=== PATIENT | male | born 1935 | race Caucasian/White ===

== ENCOUNTER → 2016-11-28 | Outpatient (CLI) | payer MEDICARE, OTHER ==
[~2016-11-28] MED LIST: BENA20TA70 PO; ESOM20CA PO; PERCOT PO; PRAV20TA3 PO
== END | disposition home or self-care (01) ==
LOC: XYW 09:56
PROVIDERS: ATTEND Internal Medicine Cardiovascular Disease
DX: I49.9 Cardiac arrhythmia, unspecified (principal)
CPT/HCPCS: 93306

== ENCOUNTER 2017-02-08 09:29 | Emergency (ER) | payer OTHER ==
[~2017-02-08] VITALS: Ht 180.3 cm; Wt 68.0 kg
[2017-02-08 11:04] LABS: Basophils # (auto) 0 uL; Basophils % (auto) 0.4 % (0.0-2.0); Eosinophils # (auto) 0.1 uL; Eosinophils % (auto) 2.1 % (0.0-7.0); Hematocrit 52.7 % (41.0-53.0); Hemoglobin 17.8 g/dL (13.5-17.5); Lymphocytes # (auto) 1.5 uL; Lymphocytes % (auto) 22.4 % (10.0-50.0); Mean Corpuscular Hemoglobin 31.4 pg (28.0-32.0); Mean Corpuscular Hgb Conc. 33.7 g/dL (32.0-36.0); Mean Corpuscular Volume 93.3 fL (80.0-100.0); Mean Platelet Volume 7.8 fL (7.4-10.4); Monocytes # (auto) 0.6 uL; Monocytes % (auto) 8.1 % (0.0-12.0); Neutrophils # (auto) 4.6 uL; Platelet Count (auto) 294 10^3/uL (140-450); Red Cell Distribution Width 13.9 % (11.6-16.0); White Blood Cell 6.9 10^3/uL (4.4-10.8)
[2017-02-08 11:34] LABS: Albumin 3.8 g/dL (3.4-5.0); BUN/Creatinine Ratio 24.6; Bilirubin, Total 0.4 mg/dL (0.2-1.0); Calcium 9.3 mg/dL (8.5-10.1); Total Protein 7.1 g/dL (6.4-8.2)
[2017-02-08 11:46] LABS: Potassium 4.5 mmol/L (3.5-5.1)
[2017-02-08 13:45] VITALS: BP 118/66
== END 2017-02-08 14:22 | disposition home or self-care (01) ==
LOC: ER 09:32
DX: M70.71 Other bursitis of hip, right hip (principal); I10 Essential (primary) hypertension; F17.210 Nicotine dependence, cigarettes, uncomplicated; Z86.73 Personal history of transient ischemic attack (TIA), and cerebral infarction without residual deficits; Z79.899 Other long term (current) drug therapy
CPT/HCPCS: 36415; 73502; 80053; 85025; 85379

== ENCOUNTER → 2017-03-31 | Outpatient (CLI) | payer OTHER ==
[2017-03-31 10:25] LABS: Urine RBC None Seen /hpf (0 - 3)
[2017-03-31 10:41] LABS: Urine Bilirubin Negative (Negative); Urine Blood Negative /uL (Negative); Urine Color Yellow (Yellow); Urine Glucose Normal (Normal); Urine Granular Cast MOD /lpf (0); Urine Ketone Negative (Negative); Urine Mucus FEW (None Seen); Urine Nitrite Negative (Negative); Urine Squamous Epithelial Cell FEW /hpf (<5); Urine Urobilinogen Normal (Negative)
[2017-03-31 10:46] LABS: Basophils # (auto) 0 uL; Basophils % (auto) 0.1 % (0.0-2.0); Eosinophils # (auto) 0 uL; Eosinophils % (auto) 0.2 % (0.0-7.0); Hematocrit 44.1 % (41.0-53.0); Hemoglobin 14.7 g/dL (13.5-17.5); Lymphocytes # (auto) 0.8 uL; Lymphocytes % (auto) 7.4 % (10.0-50.0); Mean Corpuscular Hemoglobin 31.3 pg (28.0-32.0); Mean Corpuscular Hgb Conc. 33.3 g/dL (32.0-36.0); Mean Corpuscular Volume 93.9 fL (80.0-100.0); Mean Platelet Volume 8.5 fL (7.4-10.4); Monocytes # (auto) 1.3 uL; Monocytes % (auto) 11.5 % (0.0-12.0); Neutrophils # (auto) 8.8 uL; Neutrophils % (auto) 80.8 % (37.0-80.0); Platelet Count (auto) 300 10^3/uL (140-450); Red Cell Distribution Width 13.5 % (11.6-16.0); White Blood Cell 10.9 10^3/uL (4.4-10.8)
[2017-03-31 11:18] LABS: Albumin 2.7 g/dL (3.4-5.0); BUN/Creatinine Ratio 27.6; Bilirubin, Total 0.5 mg/dL (0.2-1.0); Calcium 9.1 mg/dL (8.5-10.1); Potassium 3.7 mmol/L (3.5-5.1); Total Protein 7.2 g/dL (6.4-8.2)
== END | disposition home or self-care (01) ==
LOC: LAB 09:35
PROVIDERS: ATTEND Internal Medicine
DX: I50.40 Unspecified combined systolic (congestive) and diastolic (congestive) heart failure (principal); E78.2 Mixed hyperlipidemia; I10 Essential (primary) hypertension
CPT/HCPCS: 36415; 80053; 80061; 80307; 81001; 84153; 84443; 85025

== ENCOUNTER → 2017-04-29 | Outpatient (CLI) | payer OTHER | END | disposition home or self-care (01) | LOC: XYW 09:31 | PROVIDERS: ATTEND Internal Medicine Cardiovascular Disease | DX: Z01.818 Encounter for other preprocedural examination (principal); I50.42 Chronic combined systolic (congestive) and diastolic (congestive) heart failure; I08.1 Rheumatic disorders of both mitral and tricuspid valves; I27.2 Other secondary pulmonary hypertension | CPT/HCPCS: 93306 ==

== ENCOUNTER → 2017-06-10 | Outpatient (CLI) | payer OTHER ==
[2017-06-10 10:13] LABS: BUN/Creatinine Ratio 21.1; Calcium 9.1 mg/dL (8.5-10.1); Potassium 4.1 mmol/L (3.5-5.1)
== END | disposition home or self-care (01) ==
LOC: LAB 09:42
PROVIDERS: ATTEND Internal Medicine Cardiovascular Disease
DX: I50.42 Chronic combined systolic (congestive) and diastolic (congestive) heart failure (principal)
CPT/HCPCS: 36415; 80048

== ENCOUNTER → 2017-08-06 | Outpatient (CLI) | payer OTHER ==
[2017-08-06 11:08] LABS: BUN/Creatinine Ratio 20.5; Calcium 8.8 mg/dL (8.5-10.1); Potassium 4.3 mmol/L (3.5-5.1)
== END | disposition home or self-care (01) ==
LOC: LAB 10:04
PROVIDERS: ATTEND Internal Medicine Cardiovascular Disease
DX: I50.42 Chronic combined systolic (congestive) and diastolic (congestive) heart failure (principal)
CPT/HCPCS: 36415; 80048

== ENCOUNTER → 2017-10-29 | Outpatient (CLI) | payer OTHER ==
[~2017-10-29] MED LIST changes: +CAR125T PO; +DOXY-216 PO; +ENAL2.5T PO; +RIVA20TA PO
== END | disposition home or self-care (01) ==
LOC: XYW 09:13
PROVIDERS: ATTEND Internal Medicine Cardiovascular Disease
DX: I50.42 Chronic combined systolic (congestive) and diastolic (congestive) heart failure (principal)

== ENCOUNTER → 2017-10-29 | Outpatient (CLI) | payer OTHER ==
[~2017-10-29] MED LIST changes: -CAR125T PO; -DOXY-216 PO; -ENAL2.5T PO; -RIVA20TA PO
[2017-10-29 09:40] LABS: BUN/Creatinine Ratio 23.1; Potassium 4.1 mmol/L (3.5-5.1)
== END | disposition home or self-care (01) ==
LOC: LAB 08:47
PROVIDERS: ATTEND Internal Medicine Cardiovascular Disease
DX: I50.42 Chronic combined systolic (congestive) and diastolic (congestive) heart failure (principal); I42.9 Cardiomyopathy, unspecified
CPT/HCPCS: 36415; 80048; 93306

== ENCOUNTER 2017-12-11 10:32 | Emergency (ER) | payer OTHER ==
[~2017-12-11] VITALS: Ht 177.8 cm; Wt 52.2 kg
[2017-12-11 11:30] LABS: Basophils # (auto) 0 uL; Basophils % (auto) 0.2 % (0.0-2.0); Eosinophils # (auto) 0 uL; Hematocrit 41.3 % (41.0-53.0); Hemoglobin 13.4 g/dL (13.5-17.5); Lymphocytes # (auto) 0.5 uL; Lymphocytes % (auto) 5.2 % (10.0-50.0); Mean Corpuscular Hemoglobin 30.2 pg (28.0-32.0); Mean Corpuscular Hgb Conc. 32.5 g/dL (32.0-36.0); Mean Corpuscular Volume 92.7 fL (80.0-100.0); Monocytes # (auto) 0.4 uL; Monocytes % (auto) 4.2 % (0.0-12.0); Neutrophils # (auto) 8.8 uL; Neutrophils % (auto) 90.4 % (37.0-80.0); Platelet Count (auto) 178 10^3/uL (140-450); Red Blood Cells 4.45 10^6/uL (4.5-5.90); White Blood Cell 9.7 10^3/uL (4.4-10.8)
[2017-12-11] MEDS ORDERED: ALBUTEROL SULF 2.5 MG/0.5ML(0.5%) NEB SOLN NEB ONE (11:30)
[2017-12-11] MEDS ORDERED: IPRATROPIUM BROM 0.5 MG/2.5ML INH SOL NEB ONE (11:30)
[2017-12-11 11:53] LABS: Alanine Aminotransferase 46 U/L (16-61); Albumin 2.8 g/dL (3.4-5.0); Alkaline Phosphatase 204 U/L (45-117); Anion Gap 7 (5-15); Aspartate Aminotransferase 59 U/L (15-37); Bilirubin, Total 0.4 mg/dL (0.2-1.0); Blood Urea Nitrogen 36 mg/dL (7-18); Calcium 8.5 mg/dL (8.5-10.1); Carbon Dioxide 27 mmol/L (21-32); Chloride 107 mmol/L (98-107); GFR African American 89 mL/min; GFR Non-African American 73 mL/min; Glucose 125 mg/dL (74-106); Magnesium 2.3 mg/dL (1.6-2.6); Potassium 3.7 mmol/L (3.5-5.1); Sodium 141 mmol/L (136-145); Total Protein 6.3 g/dL (6.4-8.2)
[2017-12-11] MEDS ORDERED: cefTRIAXone W LIDOCAINE 1 GM IM IM ONE (14:00)
[2017-12-11] MEDS ORDERED: cefTRIAXone SOD 1,000 MG VL ONE (14:24)
[2017-12-11 14:41] VITALS: BP 146/63
== END 2017-12-11 14:51 | disposition home or self-care (01) ==
LOC: ER 10:32
DX: J44.9 Chronic obstructive pulmonary disease, unspecified (principal); I10 Essential (primary) hypertension; Z87.891 Personal history of nicotine dependence
CPT/HCPCS: 36415; 71046; 80053; 83735; 84484; 85025; 93005; 94640; 99285; J0696

== ENCOUNTER → 2018-01-05 | Outpatient (CLI) | payer OTHER ==
[~2018-01-05] MED LIST changes: +CAR125T PO; +DOXY-216 PO; +ENAL2.5T PO; +RIVA20TA PO
[2018-01-05 10:32] LABS: Basophils # (auto) 0 uL; Basophils % (auto) 0.6 % (0.0-2.0); Eosinophils # (auto) 0.1 uL; Eosinophils % (auto) 3.3 % (0.0-7.0); Hemoglobin 14.4 g/dL (13.5-17.5); Lymphocytes # (auto) 1.4 uL; Lymphocytes % (auto) 31.6 % (10.0-50.0); Mean Corpuscular Hemoglobin 30.6 pg (28.0-32.0); Mean Corpuscular Hgb Conc. 33.4 g/dL (32.0-36.0); Mean Corpuscular Volume 91.5 fL (80.0-100.0); Monocytes # (auto) 0.5 uL; Monocytes % (auto) 11.6 % (0.0-12.0); Neutrophils # (auto) 2.4 uL; Neutrophils % (auto) 52.9 % (37.0-80.0); Platelet Count (auto) 206 10^3/uL (140-450); Red Cell Distribution Width 15.3 % (11.8-14.3); White Blood Cell 4.5 10^3/uL (4.4-10.8)
[2018-01-05 10:51] LABS: INR 0.96 (0.9-1.15); Partial Thromboplastin Time 29.1 sec (22.64-33.71); Prothrombin Time 10.5 sec (9.37-12.3)
== END | disposition home or self-care (01) ==
LOC: LAB 10:16
PROVIDERS: ATTEND Surgery
DX: J90 Pleural effusion, not elsewhere classified (principal); E78.2 Mixed hyperlipidemia; I12.9 Hypertensive chronic kidney disease with stage 1 through stage 4 chronic kidney disease, or unspecified chronic kidney disease; N18.9 Chronic kidney disease, unspecified
CPT/HCPCS: 36415; 84443; 85025; 85610; 85730

== ENCOUNTER 2018-01-07 16:02 | Inpatient (IN) | payer OTHER ==
[~2018-01-07] VITALS: Ht 180.3 cm; Wt 56.2 kg
[~2018-01-07 16:02] MED LIST changes: -BACITRACIN TOP OINT 1 UD PKG TOP ONE; -CAR125T PO; -DOXY-216 PO; -ENAL2.5T PO; -LIDOCAINE 2%HCL (LOCAL ANESTH.) INJ 20ML MDV ONE; -MIDAZOLAM HCL 1MG/1ML-2 ML VIAL ONE; -RIVA20TA PO; -fentaNYL CITRATE 100 MCG/2 ML VL ONE
[2018-01-07] MEDS ORDERED: LORazepam 2MG/ML-1ML VIAL IV ONE (17:15)
[2018-01-07] MEDS ORDERED: NALBUPHINE HCL 10 MG/1ml INJECTION IV ONE (17:15)
[2018-01-07] MEDS ORDERED: SODIUM CHLORIDE 0.9% 1,000 ML IV ONE (18:30)
[2018-01-07] MEDS ORDERED: cefTRIAXone 1GM/10ml IVPUSH 10 ML IV ONE (18:30)
[2018-01-07] MEDS ORDERED: MORPHINE SULFATE 4 MG/ML SYR/VIAL IV PRN (19:00)
[2018-01-07] MEDS ORDERED: PROMETHAZINE HCL 25 MG/ML 1ML IV PRN (19:00)
[2018-01-07] MEDS ORDERED: LACTULOSE 20Gm/30ML SOLN PO PRN (19:00)
[2018-01-07] MEDS ORDERED: LORazepam 0.5 MG TAB PO PRN (19:00)
[2018-01-07] MEDS ORDERED: NITROGLYCERIN 0.4 MG SL TAB SL PRN (19:00)
[2018-01-07] MEDS ORDERED: TEMAZEPAM 15 MG CAP PO PRN (19:00)
[2018-01-07] MEDS ORDERED: ALBUTEROL SULF 2.5 MG/0.5ML(0.5%) NEB SOLN NEB PRN (19:00)
[2018-01-07] MEDS ORDERED: HYDROcodone-ACET 5/325MG TAB PO PRN (19:00)
[2018-01-07] MEDS ORDERED: ACETAMINOPHEN 500 MG TAB PO PRN (19:00)
[2018-01-07 19:30] LABS: Basophils # (auto) 0 uL; Basophils % (auto) 0.3 % (0.0-2.0); Eosinophils # (auto) 0.1 uL; Eosinophils % (auto) 1.9 % (0.0-7.0); Hematocrit 39.5 % (41.0-53.0); Lymphocytes % (auto) 19.7 % (10.0-50.0); Mean Corpuscular Hemoglobin 30.5 pg (28.0-32.0); Mean Corpuscular Hgb Conc. 32.8 g/dL (32.0-36.0); Mean Corpuscular Volume 92.8 fL (80.0-100.0); Monocytes # (auto) 0.5 uL; Monocytes % (auto) 10.2 % (0.0-12.0); Neutrophils # (auto) 3.4 uL; Neutrophils % (auto) 67.9 % (37.0-80.0); Nucleated Red Blood Cells % 0.1 %; Platelet Count (auto) 183 10^3/uL (140-450); Red Blood Cells 4.26 10^6/uL (4.5-5.90); Red Cell Distribution Width 14.6 % (11.8-14.3); White Blood Cell 5.1 10^3/uL (4.4-10.8)
[2018-01-07 19:35] LABS: Alanine Aminotransferase 22 U/L (16-61); Albumin 3.2 g/dL (3.4-5.0); Alkaline Phosphatase 116 U/L (45-117); Anion Gap 7 (5-15); Aspartate Aminotransferase 17 U/L (15-37); BUN/Creatinine Ratio 21.5; Bilirubin, Total 0.5 mg/dL (0.2-1.0); Blood Urea Nitrogen 23 mg/dL (7-18); Calcium 8.3 mg/dL (8.5-10.1); Carbon Dioxide 25 mmol/L (21-32); Chloride 115 mmol/L (98-107); GFR African American 85 mL/min; GFR Non-African American 70 mL/min; Glucose 90 mg/dL (74-106); Magnesium 2.4 mg/dL (1.6-2.6); Potassium 3.7 mmol/L (3.5-5.1); Sodium 147 mmol/L (136-145); Total Protein 5.9 g/dL (6.4-8.2)
[2018-01-07] MEDS: MORPHINE SULFATE 4 MG/ML SYR/VIAL IV PRN (21:06)
[2018-01-07] MEDS: SODIUM CHLORIDE 0.9% 1,000 ML IV SCH (21:21)
[2018-01-08] MEDS: IPRATROPIUM BROM 0.5 MG/2.5ML INH SOL NEB SCH ×4 (00:30→18:39)
[2018-01-08] MEDS: ALBUTEROL SULF 2.5 MG/0.5ML(0.5%) NEB SOLN NEB SCH ×4 (00:30→18:39)
[2018-01-08 01:28] LABS: Hematocrit 41.5 % (41.0-53.0); Hemoglobin 13.4 g/dL (13.5-17.5)
[2018-01-08 03:03] VITALS: BP 174/79
[2018-01-08] MEDS: MORPHINE SULFATE 4 MG/ML SYR/VIAL IV PRN ×3 (03:41→11:46)
[2018-01-08] MEDS: SODIUM CHLORIDE 0.9% 1,000 ML IV SCH ×3 (04:20→19:55)
[2018-01-08 06:08] LABS: Hematocrit 38.4 % (41.0-53.0); Hemoglobin 12.8 g/dL (13.5-17.5)
[2018-01-08 06:09] LABS: Basophils # (auto) 0 uL; Basophils % (auto) 0.2 % (0.0-2.0); Eosinophils # (auto) 0 uL; Eosinophils % (auto) 0.8 % (0.0-7.0); Hematocrit 38.5 % (41.0-53.0); Hemoglobin 12.6 g/dL (13.5-17.5); Lymphocytes # (auto) 1.1 uL; Mean Corpuscular Hemoglobin 30.1 pg (28.0-32.0); Mean Corpuscular Hgb Conc. 32.8 g/dL (32.0-36.0); Mean Corpuscular Volume 91.8 fL (80.0-100.0); Monocytes # (auto) 0.7 uL; Monocytes % (auto) 12.4 % (0.0-12.0); Neutrophils # (auto) 3.9 uL; Neutrophils % (auto) 67.6 % (37.0-80.0); Nucleated Red Blood Cells % 0.1 %; Platelet Count (auto) 202 10^3/uL (140-450); Red Blood Cells 4.19 10^6/uL (4.5-5.90); Red Cell Distribution Width 14.7 % (11.8-14.3); White Blood Cell 5.8 10^3/uL (4.4-10.8)
[2018-01-08] MEDS: PANTOPRAZOLE 40 MG TAB PO SCH (09:20)
[2018-01-08] MEDS: cefTRIAXone 1GM/10ml IVPUSH 10 ML IV SCH (09:20)
[2018-01-09] MEDS: IPRATROPIUM BROM 0.5 MG/2.5ML INH SOL NEB SCH ×4 (00:44→19:40)
[2018-01-09] MEDS: ALBUTEROL SULF 2.5 MG/0.5ML(0.5%) NEB SOLN NEB SCH ×4 (00:44→19:40)
[2018-01-09] MEDS: SODIUM CHLORIDE 0.9% 1,000 ML IV SCH ×3 (02:57→19:30)
[2018-01-09 05:39] LABS: Basophils # (auto) 0 uL; Basophils % (auto) 0.3 % (0.0-2.0); Eosinophils # (auto) 0.1 uL; Eosinophils % (auto) 1.8 % (0.0-7.0); Hematocrit 42.8 % (41.0-53.0); Hemoglobin 14.5 g/dL (13.5-17.5); Lymphocytes # (auto) 1.1 uL; Lymphocytes % (auto) 18.9 % (10.0-50.0); Mean Corpuscular Hemoglobin 30.9 pg (28.0-32.0); Mean Corpuscular Hgb Conc. 33.9 g/dL (32.0-36.0); Mean Corpuscular Volume 91.4 fL (80.0-100.0); Monocytes # (auto) 0.9 uL; Monocytes % (auto) 15.6 % (0.0-12.0); Neutrophils # (auto) 3.8 uL; Neutrophils % (auto) 63.4 % (37.0-80.0); Nucleated Red Blood Cells % 0.2 %; Platelet Count (auto) 202 10^3/uL (140-450); Red Blood Cells 4.68 10^6/uL (4.5-5.90); Red Cell Distribution Width 14.4 % (11.8-14.3)
[2018-01-09 05:49] LABS: Calcium 8.5 mg/dL (8.5-10.1); Potassium 4.1 mmol/L (3.5-5.1)
[2018-01-09] MEDS: cefTRIAXone 1GM/10ml IVPUSH 10 ML IV SCH (09:21)
[2018-01-09] MEDS: PANTOPRAZOLE 40 MG TAB PO SCH (09:22)
[2018-01-09 16:00] VITALS: BP 146/104
[2018-01-09] MEDS ORDERED: cloNIDine HCL 0.1 MG TAB PO PRN (17:00)
[2018-01-09] MEDS ORDERED: CAR125T PO (17:12)
[2018-01-09] MEDS ORDERED: ENAL2.5T PO (17:12)
[2018-01-09] MEDS: ENALAPRIL MALEATE 2.5 MG TAB PO SCH (17:14)
[2018-01-09] MEDS: CARVEDILOL 12.5 MG TAB PO SCH ×2 (17:14→21:24)
[2018-01-09 17:59] VITALS: BP 147/79
[2018-01-09 20:00] VITALS: BP 129/74
[2018-01-10] VITALS: BP 122/73
[2018-01-10] MEDS: ALBUTEROL SULF 2.5 MG/0.5ML(0.5%) NEB SOLN NEB SCH ×3 (00:36→12:00)
[2018-01-10] MEDS: IPRATROPIUM BROM 0.5 MG/2.5ML INH SOL NEB SCH ×3 (00:36→12:00)
[2018-01-10] MEDS: SODIUM CHLORIDE 0.9% 1,000 ML IV SCH ×2 (02:57→11:47)
[2018-01-10 05:15] LABS: Basophils # (auto) 0 uL; Basophils % (auto) 0.3 % (0.0-2.0); Eosinophils # (auto) 0.1 uL; Eosinophils % (auto) 3.1 % (0.0-7.0); Hematocrit 37.5 % (41.0-53.0); Hemoglobin 12.4 g/dL (13.5-17.5); Lymphocytes % (auto) 21.1 % (10.0-50.0); Mean Corpuscular Hemoglobin 30.3 pg (28.0-32.0); Mean Corpuscular Hgb Conc. 33.1 g/dL (32.0-36.0); Mean Corpuscular Volume 91.7 fL (80.0-100.0); Monocytes # (auto) 0.7 uL; Monocytes % (auto) 14.5 % (0.0-12.0); Neutrophils # (auto) 2.8 uL; Nucleated Red Blood Cells % 0.2 %; Platelet Count (auto) 177 10^3/uL (140-450); Red Cell Distribution Width 14.5 % (11.8-14.3); White Blood Cell 4.6 10^3/uL (4.4-10.8)
[2018-01-10 05:33] LABS: BUN/Creatinine Ratio 14.3; Calcium 7.9 mg/dL (8.5-10.1); Potassium 3.8 mmol/L (3.5-5.1)
[2018-01-10 08:00] VITALS: BP 126/81
[2018-01-10] MEDS: PANTOPRAZOLE 40 MG TAB PO SCH (11:46)
[2018-01-10] MEDS: ENALAPRIL MALEATE 2.5 MG TAB PO SCH (11:46)
[2018-01-10] MEDS: CARVEDILOL 12.5 MG TAB PO SCH (11:47)
[2018-01-10] MEDS: cefTRIAXone 1GM/10ml IVPUSH 10 ML IV SCH (11:47)
[2018-01-10 11:52] VITALS: BP 151/66
[2018-01-10 12:29] VITALS: BP 151/66
[2018-01-10] MEDS ORDERED: CARVEDILOL 12.5 MG TAB PO SCH (22:00)
== END 2018-01-10 14:45 | disposition left against medical advice (07) | DRG 199 ==
LOC: ER 16:09 → TELE 16:10 → DOU IN ICU 01-09 14:55
PROVIDERS: ADMIT Internal Medicine; ATTEND Internal Medicine
PROC: 0W9930Z Drainage of Right Pleural Cavity with Drainage Device, Percutaneous Approach (ICD-10-PCS; principal; 2018-01-07)
DX: J95.811 Postprocedural pneumothorax (principal); J18.9 Pneumonia, unspecified organism; J44.0 Chronic obstructive pulmonary disease with (acute) lower respiratory infection; I48.91 Unspecified atrial fibrillation; J95.831 Postprocedural hemorrhage of a respiratory system organ or structure following other procedure; Y83.8 Other surgical procedures as the cause of abnormal reaction of the patient, or of later complication, without mention of misadventure at the time of the procedure; E78.5 Hyperlipidemia, unspecified; I70.0 Atherosclerosis of aorta; E78.00 Pure hypercholesterolemia, unspecified; I10 Essential (primary) hypertension; Z82.49 Family history of ischemic heart disease and other diseases of the circulatory system; Y92.89 Other specified places as the place of occurrence of the external cause
CPT/HCPCS: 32551; 36415; 36600; 71045; 71046; 80048; 80053; 82805; 83735; 84443; 84484; 85014; 85018; 85025; 87040; 93005; 94640; 94761; 96361; 96374; 96375

== ENCOUNTER → 2018-01-07 | Outpatient (CLI) | payer OTHER ==
[~2018-01-07] MED LIST changes: +BACITRACIN TOP OINT 1 UD PKG TOP ONE; +LIDOCAINE 2%HCL (LOCAL ANESTH.) INJ 20ML MDV ONE; +MIDAZOLAM HCL 1MG/1ML-2 ML VIAL ONE; +fentaNYL CITRATE 100 MCG/2 ML VL ONE
== END | disposition home or self-care (01) ==
LOC: CT 08:45
PROVIDERS: ATTEND Surgery
DX: R91.8 Other nonspecific abnormal finding of lung field (principal); J43.9 Emphysema, unspecified; J95.811 Postprocedural pneumothorax; Y84.8 Other medical procedures as the cause of abnormal reaction of the patient, or of later complication, without mention of misadventure at the time of the procedure; Y92.238 Other place in hospital as the place of occurrence of the external cause
CPT/HCPCS: 32405; 32551; 71045; 77012; J2250; J3010; 10022

== ENCOUNTER 2018-01-11 10:04 | Observation (INO) | payer OTHER ==
[~2018-01-11] VITALS: Ht 177.8 cm; Wt 52.2 kg
[~2018-01-11 10:04] MED LIST changes: +CAR125T PO; +ENAL2.5T PO
[2018-01-11 11:27] LABS: Basophils # (auto) 0 uL; Basophils % (auto) 0.5 % (0.0-2.0); Eosinophils # (auto) 0.1 uL; Eosinophils % (auto) 2.4 % (0.0-7.0); Hematocrit 38.9 % (41.0-53.0); Hemoglobin 12.8 g/dL (13.5-17.5); Lymphocytes % (auto) 18.8 % (10.0-50.0); Mean Corpuscular Hgb Conc. 32.8 g/dL (32.0-36.0); Mean Corpuscular Volume 91.6 fL (80.0-100.0); Monocytes # (auto) 0.5 uL; Monocytes % (auto) 9.3 % (0.0-12.0); Neutrophils # (auto) 3.7 uL; Platelet Count (auto) 232 10^3/uL (140-450); Red Blood Cells 4.25 10^6/uL (4.5-5.90); Red Cell Distribution Width 14.4 % (11.8-14.3); White Blood Cell 5.4 10^3/uL (4.4-10.8)
[2018-01-11 11:52] LABS: Albumin 3.2 g/dL (3.4-5.0); BUN/Creatinine Ratio 20.5; Bilirubin, Total 0.6 mg/dL (0.2-1.0); Calcium 8.4 mg/dL (8.5-10.1); Total Protein 6.8 g/dL (6.4-8.2)
[2018-01-11] MEDS ORDERED: IOHEXOL 350 MG/ML 100ML IJ ONE (16:18)
[2018-01-11 16:59] VITALS: BP 156/73
[2018-01-11] MEDS ORDERED: cefTRIAXone 1GM/10ml IVPUSH 10 ML IV ONE (18:00)
[2018-01-11 18:10] LABS: Urine Bacteria NONE SEEN /hpf (None Seen); Urine Blood Negative /uL (Negative); Urine Specific Gravity 1.018 (1.001-1.035); Urine WBC 1 /hpf (0 - 3)
[2018-01-11 18:24] LABS: Magnesium 2.1 mg/dL (1.6-2.6)
== END 2018-01-11 19:31 | disposition left against medical advice (07) | DRG 204 ==
LOC: ER 10:04 → OVERFLOW 17:49 → ER 19:31
PROVIDERS: ADMIT Family Medicine; ATTEND Family Medicine
DX: R04.2 Hemoptysis (principal); J18.1 Lobar pneumonia, unspecified organism; J44.9 Chronic obstructive pulmonary disease, unspecified; I10 Essential (primary) hypertension
CPT/HCPCS: 36415; 71046; 71275; 80053; 81001; 83735; 84484; 85025; 93005; 96374; 99285; G0378; Q9967

== ENCOUNTER 2018-01-21 10:50 | Inpatient (IN) | payer OTHER ==
[~2018-01-21] VITALS: Ht 180.3 cm; Wt 52.2 kg
[2018-01-21 11:59] LABS: Basophils # (auto) 0 uL; Basophils % (auto) 0.2 % (0.0-2.0); Eosinophils # (auto) 0.1 uL; Eosinophils % (auto) 0.9 % (0.0-7.0); Hematocrit 35.5 % (41.0-53.0); Hemoglobin 11.4 g/dL (13.5-17.5); Lymphocytes # (auto) 0.9 uL; Lymphocytes % (auto) 13.6 % (10.0-50.0); Mean Corpuscular Hemoglobin 29.6 pg (28.0-32.0); Mean Corpuscular Hgb Conc. 32.1 g/dL (32.0-36.0); Mean Corpuscular Volume 92.4 fL (80.0-100.0); Monocytes # (auto) 0.5 uL; Monocytes % (auto) 8.1 % (0.0-12.0); Neutrophils # (auto) 5.1 uL; Neutrophils % (auto) 77.2 % (37.0-80.0); Nucleated Red Blood Cells % 0.1 %; Platelet Count (auto) 278 10^3/uL (140-450); Red Blood Cells 3.85 10^6/uL (4.5-5.90); White Blood Cell 6.6 10^3/uL (4.4-10.8)
[2018-01-21 12:25] LABS: INR 1.13 (0.9-1.15); Partial Thromboplastin Time 35.5 sec (22.64-33.71); Prothrombin Time 12.3 sec (9.37-12.3)
[2018-01-21 13:09] LABS: Alanine Aminotransferase 31 U/L (16-61); Albumin 2.8 g/dL (3.4-5.0); Alkaline Phosphatase 305 U/L (45-117); Anion Gap 10 (5-15); Aspartate Aminotransferase 38 U/L (15-37); BUN/Creatinine Ratio 20.3; Bilirubin, Total 0.5 mg/dL (0.2-1.0); Blood Urea Nitrogen 24 mg/dL (7-18); Calcium 8.5 mg/dL (8.5-10.1); Carbon Dioxide 22 mmol/L (21-32); Chloride 110 mmol/L (98-107); GFR African American 76 mL/min; GFR Non-African American 63 mL/min; Glucose 152 mg/dL (74-106); Magnesium 2.4 mg/dL (1.6-2.6); Potassium 3.8 mmol/L (3.5-5.1); Sodium 142 mmol/L (136-145); Total Protein 6.1 g/dL (6.4-8.2)
[2018-01-21] MEDS ORDERED: LACTULOSE 20Gm/30ML SOLN PO PRN (13:30)
[2018-01-21] MEDS ORDERED: ACETAMINOPHEN 500 MG TAB PO PRN (13:30)
[2018-01-21] MEDS ORDERED: PROMETHAZINE HCL 25 MG/ML 1ML IV PRN (13:30)
[2018-01-21] MEDS ORDERED: MORPHINE SULFATE 4 MG/ML SYR/VIAL IV PRN ×2 (13:30)
[2018-01-21] MEDS ORDERED: ALBUTEROL SULF 2.5 MG/0.5ML(0.5%) NEB SOLN NEB PRN (13:30)
[2018-01-21] MEDS ORDERED: TEMAZEPAM 15 MG CAP PO PRN (13:30)
[2018-01-21] MEDS ORDERED: NITROGLYCERIN 0.4 MG SL TAB SL PRN (13:30)
[2018-01-21] MEDS ORDERED: LORazepam 0.5 MG TAB PO PRN (13:30)
[2018-01-21] MEDS ORDERED: OSELTAMIVIR 75 MG CAP PO ONE (13:30)
[2018-01-21] MEDS ORDERED: HYDROcodone-ACET 5/325MG TAB PO PRN (13:30)
[2018-01-21] MEDS: SODIUM CHLOR 0.9% PF (SALINE LOCK) 10ML VIAL IV SCH ×2 (13:58→22:11)
[2018-01-21] MEDS ORDERED: OXYCODONE W/ ACETAMINOPHEN 5/325MG TABLET PO SCH (14:00)
[2018-01-21] MEDS: methylPREDNISolone SOD SUCC 40 MG/ML VL IV SCH ×2 (14:17→22:09)
[2018-01-21 14:59] VITALS: BP 106/45
[2018-01-21 17:42] LABS: Urine Bacteria FEW /hpf (None Seen); Urine Blood Negative /uL (Negative); Urine Hyaline Cast FEW /lpf (0 - 2); Urine Mucus FEW (None Seen); Urine Specific Gravity 1.024 (1.001-1.035); Urine WBC 4 /hpf (0 - 3)
[2018-01-21] MEDS ORDERED: methylPREDNISolone SOD SUCC 40 MG/ML VL IV SCH (18:00)
[2018-01-21] MEDS: ALBUTEROL SULF 2.5 MG/0.5ML(0.5%) NEB SOLN NEB SCH (18:22)
[2018-01-21] MEDS: IPRATROPIUM BROM 0.5 MG/2.5ML INH SOL NEB SCH (18:22)
[2018-01-21 19:59] LABS: Hematocrit 36.5 % (41.0-53.0)
[2018-01-21] MEDS ORDERED: LABETALOL HCL 5 MG/ML ML 20ML VIAL IV ONE (20:30)
[2018-01-21] MEDS ORDERED: OSELTAMIVIR 75 MG CAP PO SCH (22:00)
[2018-01-21] MEDS ORDERED: PRAVASTATIN SODIUM 20 MG TAB PO SCH (22:00)
[2018-01-21] MEDS ORDERED: OXYCODONE W/ ACETAMINOPHEN 5/325MG TABLET PO PRN (22:00)
[2018-01-21] MEDS ORDERED: methylPREDNISolone SOD SUCC 125 MG/2 ML VL IV ONE (22:00)
[2018-01-21] MEDS: CARVEDILOL 12.5 MG TAB PO SCH (22:09)
[2018-01-22] MEDS: IPRATROPIUM BROM 0.5 MG/2.5ML INH SOL NEB SCH ×3 (00:25→13:12)
[2018-01-22] MEDS: ALBUTEROL SULF 2.5 MG/0.5ML(0.5%) NEB SOLN NEB SCH ×3 (00:25→13:12)
[2018-01-22 01:02] LABS: Hematocrit 33.4 % (41.0-53.0); Hemoglobin 10.9 g/dL (13.5-17.5)
[2018-01-22 05:00] VITALS: BP 125/74
[2018-01-22] MEDS: methylPREDNISolone SOD SUCC 40 MG/ML VL IV SCH ×2 (06:14→12:58)
[2018-01-22] MEDS: SODIUM CHLOR 0.9% PF (SALINE LOCK) 10ML VIAL IV SCH ×2 (06:16→12:58)
[2018-01-22 07:16] LABS: Basophils # (auto) 0 uL; Basophils % (auto) 0.1 % (0.0-2.0); Eosinophils # (auto) 0 uL; Hematocrit 32.9 % (41.0-53.0); Hemoglobin 10.9 g/dL (13.5-17.5); Lymphocytes # (auto) 0.5 uL; Lymphocytes % (auto) 7.4 % (10.0-50.0); Mean Corpuscular Hemoglobin 30.2 pg (28.0-32.0); Mean Corpuscular Hgb Conc. 33.1 g/dL (32.0-36.0); Mean Corpuscular Volume 91.5 fL (80.0-100.0); Monocytes # (auto) 0.3 uL; Monocytes % (auto) 4.3 % (0.0-12.0); Neutrophils # (auto) 5.6 uL; Neutrophils % (auto) 88.2 % (37.0-80.0); Nucleated Red Blood Cells % 0.1 %; Platelet Count (auto) 266 10^3/uL (140-450); Red Cell Distribution Width 14.4 % (11.8-14.3); White Blood Cell 6.3 10^3/uL (4.4-10.8)
[2018-01-22 07:36] LABS: Albumin 2.7 g/dL (3.4-5.0); BUN/Creatinine Ratio 23.9; Bilirubin, Total 0.3 mg/dL (0.2-1.0); Calcium 8.1 mg/dL (8.5-10.1); Potassium 4.1 mmol/L (3.5-5.1)
[2018-01-22 09:00] VITALS: BP 155/82
[2018-01-22] MEDS ORDERED: cefTRIAXone 1GM/10ml IVPUSH 10 ML IV SCH (09:00)
[2018-01-22] MEDS ORDERED: ENALAPRIL MALEATE 2.5 MG TAB PO SCH (10:00)
[2018-01-22] MEDS ORDERED: PANTOPRAZOLE 40 MG TAB PO SCH (10:00)
[2018-01-22] MEDS ORDERED: AZITHROMYCIN 500MG/ 250ML 250 ML IV SCH (10:00)
[2018-01-22] MEDS: CARVEDILOL 12.5 MG TAB PO SCH (10:10)
[2018-01-22 12:34] VITALS: BP 129/78
[2018-01-22] MEDS ORDERED: DOXY-216 PO (13:39)
[2018-01-22 15:02] VITALS: BP 129/78
[2018-01-22 15:24] VITALS: BP 129/78
== END 2018-01-22 15:40 | disposition home or self-care (01) | DRG 291 ==
LOC: ER 10:50 → TELE 10:51 → TELE-WESTW 22:30
PROVIDERS: ADMIT Internal Medicine; ATTEND Internal Medicine
DX: I11.0 Hypertensive heart disease with heart failure (principal); J96.00 Acute respiratory failure, unspecified whether with hypoxia or hypercapnia; J44.1 Chronic obstructive pulmonary disease with (acute) exacerbation; R04.2 Hemoptysis; I50.43 Acute on chronic combined systolic (congestive) and diastolic (congestive) heart failure; I48.91 Unspecified atrial fibrillation; D63.8 Anemia in other chronic diseases classified elsewhere; E78.5 Hyperlipidemia, unspecified; Z82.49 Family history of ischemic heart disease and other diseases of the circulatory system; D02.21 Carcinoma in situ of right bronchus and lung; Z79.899 Other long term (current) drug therapy; K59.00 Constipation, unspecified; F41.9 Anxiety disorder, unspecified; G47.00 Insomnia, unspecified
CPT/HCPCS: 36415; 71045; 71046; 80053; 81001; 82550; 83735; 83880; 84484; 85014; 85018; 85025; 85045; 85379; 85610; 85730; 87804; 93005; 94640; 94761; 96374; 96375

== ENCOUNTER 2018-01-24 10:58 | Inpatient (IN) | payer OTHER ==
[~2018-01-24] VITALS: Ht 177.8 cm; Wt 56.7 kg
[~2018-01-24 10:58] MED LIST changes: +DOXY-216 PO
[2018-01-24 11:28] LABS: Basophils # (auto) 0 uL; Basophils % (auto) 0.1 % (0.0-2.0); Eosinophils # (auto) 0.1 uL; Eosinophils % (auto) 0.8 % (0.0-7.0); Hematocrit 36.9 % (41.0-53.0); Hemoglobin 11.9 g/dL (13.5-17.5); Lymphocytes # (auto) 0.8 uL; Lymphocytes % (auto) 8.8 % (10.0-50.0); Mean Corpuscular Hemoglobin 29.6 pg (28.0-32.0); Mean Corpuscular Hgb Conc. 32.3 g/dL (32.0-36.0); Mean Corpuscular Volume 91.7 fL (80.0-100.0); Monocytes # (auto) 0.7 uL; Monocytes % (auto) 7.9 % (0.0-12.0); Neutrophils # (auto) 7.2 uL; Neutrophils % (auto) 82.4 % (37.0-80.0); Nucleated Red Blood Cells % 0.1 %; Platelet Count (auto) 328 10^3/uL (140-450); Red Blood Cells 4.02 10^6/uL (4.5-5.90); Red Cell Distribution Width 14.8 % (11.8-14.3); White Blood Cell 8.8 10^3/uL (4.4-10.8)
[2018-01-24 11:47] LABS: Alanine Aminotransferase 42 U/L (16-61); Alkaline Phosphatase 304 U/L (45-117); Anion Gap 7 (5-15); Aspartate Aminotransferase 48 U/L (15-37); BUN/Creatinine Ratio 27.9; Bilirubin, Total 0.4 mg/dL (0.2-1.0); Blood Urea Nitrogen 34 mg/dL (7-18); Calcium 8.3 mg/dL (8.5-10.1); Carbon Dioxide 25 mmol/L (21-32); Chloride 109 mmol/L (98-107); GFR African American 73 mL/min; GFR Non-African American 60 mL/min; Glucose 95 mg/dL (74-106); Magnesium 2.3 mg/dL (1.6-2.6); Potassium 4.1 mmol/L (3.5-5.1); Sodium 141 mmol/L (136-145); Total Protein 6.4 g/dL (6.4-8.2)
[2018-01-24 12:00] LABS: INR 1.13 (0.9-1.15); Partial Thromboplastin Time 33.1 sec (22.64-33.71); Prothrombin Time 12.3 sec (9.37-12.3)
[2018-01-24 12:32] LABS: Urine Bacteria NONE SEEN /hpf (None Seen); Urine Blood Negative /uL (Negative); Urine WBC 1 /hpf (0 - 3)
[2018-01-24] MEDS ORDERED: SODIUM CHLORIDE 0.9% 1,000 ML IV SCH (12:50)
[2018-01-24] MEDS ORDERED: NITROGLYCERIN 0.4 MG SL TAB SL PRN (13:00)
[2018-01-24] MEDS ORDERED: TEMAZEPAM 15 MG CAP PO PRN (13:00)
[2018-01-24] MEDS ORDERED: LORazepam 0.5 MG TAB PO PRN (13:00)
[2018-01-24] MEDS ORDERED: ACETAMINOPHEN 500 MG TAB PO PRN (13:00)
[2018-01-24] MEDS ORDERED: ALBUTEROL SULF 2.5 MG/0.5ML(0.5%) NEB SOLN NEB PRN (13:00)
[2018-01-24] MEDS ORDERED: MORPHINE SULFATE 4 MG/ML SYR/VIAL IV PRN ×2 (13:00)
[2018-01-24] MEDS ORDERED: PROMETHAZINE HCL 25 MG/ML 1ML IV PRN (13:00)
[2018-01-24] MEDS ORDERED: LACTULOSE 20Gm/30ML SOLN PO PRN (13:00)
[2018-01-24] MEDS ORDERED: OSELTAMIVIR 75 MG CAP PO ONE (13:00)
[2018-01-24] MEDS ORDERED: FUROSEMIDE 20 MG/2 ML VIAL IV SCH (13:15)
[2018-01-24] MEDS ORDERED: FUROSEMIDE 20 MG/2 ML VIAL IV ONE (13:15)
[2018-01-24] MEDS ORDERED: ENAL2.5T PO (13:44)
[2018-01-24] MEDS ORDERED: OSELTAMIVIR 30 MG CAP PO SCH (13:45)
[2018-01-24] MEDS: DOXYCYCLINE HYC 100MG/250ML 250 ML IV SCH ×2 (13:46→22:09)
[2018-01-24] MEDS: PANTOPRAZOLE 40 MG TAB PO SCH (13:46)
[2018-01-24 13:50] VITALS: BP 132/75
[2018-01-24] MEDS ORDERED: OXYCODONE W/ ACETAMINOPHEN 5/325MG TABLET PO PRN (14:00)
[2018-01-24 14:58] VITALS: BP 131/74
[2018-01-24 17:08] VITALS: BP 137/78
[2018-01-24] MEDS ORDERED: CARVEDILOL 12.5 MG TAB PO ONE (18:00)
[2018-01-24] MEDS: IPRATROPIUM BROM 0.5 MG/2.5ML INH SOL NEB SCH (18:00)
[2018-01-24] MEDS: ALBUTEROL SULF 2.5 MG/0.5ML(0.5%) NEB SOLN NEB SCH (18:00)
[2018-01-24] MEDS: methylPREDNISolone SOD SUCC 40 MG/ML VL IV SCH ×2 (18:28→23:53)
[2018-01-24] MEDS ORDERED: RIVA20TA PO (18:36)
[2018-01-24 20:00] VITALS: BP 100/48
[2018-01-24 22:00] VITALS: BP 102/53
[2018-01-24] MEDS ORDERED: CARVEDILOL 12.5 MG TAB PO SCH (22:00)
[2018-01-24] MEDS: ATORVASTATIN 20 MG TAB PO SCH (22:08)
[2018-01-24] MEDS ORDERED: DILTIAZEM HCL 60 MG TAB ONE ×2 (22:42→22:49)
[2018-01-24] MEDS ORDERED: DILTIAZEM HCL 60 MG TAB PO ONE (22:45)
[2018-01-25] VITALS (30 sets, daily range): BP systolic 74–148; BP diastolic 26–97
[2018-01-25] MEDS ORDERED: ALBUMIN 5% 250 ML IV ONE (00:15)
[2018-01-25] MEDS ORDERED: AMIODARONE HCL 150 MG in D5W 5% 100 ML IV ONE (00:30)
[2018-01-25] MEDS ORDERED: AMIODARONE HCL (50 MG/ ML) 3 ML VIAL IV ONE (00:33)
[2018-01-25] MEDS ORDERED: AMIODARONE HCL 900 MG in DEXTROSE 500 ML IV SCH ×2 (00:40→15:41)
[2018-01-25] MEDS ORDERED: AMIODARONE HCL 900 MG IV ONE (00:54)
[2018-01-25] MEDS: NOREPINEPHRINE 8 MG/250ML KIT 250 ML IV SCH (02:30)
[2018-01-25] MEDS: methylPREDNISolone SOD SUCC 40 MG/ML VL IV SCH ×4 (06:39→23:40)
[2018-01-25] MEDS: ALBUTEROL SULF 2.5 MG/0.5ML(0.5%) NEB SOLN NEB SCH ×4 (07:00→19:30)
[2018-01-25] MEDS: IPRATROPIUM BROM 0.5 MG/2.5ML INH SOL NEB SCH ×4 (07:00→19:30)
[2018-01-25] MEDS ORDERED: DIGOXIN 0.25 MG TAB PO ONE (08:15)
[2018-01-25] MEDS ORDERED: SODIUM CHLORIDE 0.9% 500 ML IV ONE (08:30)
[2018-01-25] MEDS: DOXYCYCLINE HYC 100MG/250ML 250 ML IV SCH ×2 (09:28→21:27)
[2018-01-25] MEDS: PANTOPRAZOLE 40 MG TAB PO SCH (09:29)
[2018-01-25] MEDS: CARVEDILOL 12.5 MG TAB PO SCH ×2 (09:29→21:38)
[2018-01-25] MEDS ORDERED: POTASSIUM CHL 20 Meq TABLET PO SCH (10:00)
[2018-01-25] MEDS ORDERED: PRAVASTATIN SODIUM 20 MG TAB PO SCH (10:00)
[2018-01-25] MEDS ORDERED: NITROGLYCERIN 0.2MG/HR TOPICAL PATCH TD SCH (10:00)
[2018-01-25] MEDS ORDERED: [UNRECOGNIZED DRUG - OTHER] PO SCH (10:00)
[2018-01-25] MEDS ORDERED: ASPirin 81 mg TAB PO SCH (10:00)
[2018-01-25] MEDS ORDERED: FUROSEMIDE 20 MG/2 ML VIAL IV SCH (10:00)
[2018-01-25] MEDS ORDERED: ENALAPRIL MALEATE 2.5 MG TAB PO SCH (10:00)
[2018-01-25] MEDS: ATORVASTATIN 20 MG TAB PO SCH (21:38)
[2018-01-26] VITALS: BP 112/63
[2018-01-26] MEDS: IPRATROPIUM BROM 0.5 MG/2.5ML INH SOL NEB SCH ×2 (00:50→06:31)
[2018-01-26] MEDS: ALBUTEROL SULF 2.5 MG/0.5ML(0.5%) NEB SOLN NEB SCH ×2 (00:50→06:31)
[2018-01-26] MEDS: NOREPINEPHRINE 8 MG/250ML KIT 250 ML IV SCH (00:54)
[2018-01-26] MEDS: methylPREDNISolone SOD SUCC 40 MG/ML VL IV SCH (06:32)
== END 2018-01-26 07:40 | disposition left against medical advice (07) | DRG 919 ==
LOC: ER 10:58 → TELE 10:59 → TELE-CENTR 13:52 → DOU IN ICU 01-25 00:34
PROVIDERS: ADMIT Internal Medicine; ATTEND Internal Medicine
DX: J95.831 Postprocedural hemorrhage of a respiratory system organ or structure following other procedure (principal); I50.43 Acute on chronic combined systolic (congestive) and diastolic (congestive) heart failure; J44.1 Chronic obstructive pulmonary disease with (acute) exacerbation; I48.91 Unspecified atrial fibrillation; J93.9 Pneumothorax, unspecified; Y84.8 Other medical procedures as the cause of abnormal reaction of the patient, or of later complication, without mention of misadventure at the time of the procedure; Y82.8 Other medical devices associated with adverse incidents; Y92.9 Unspecified place or not applicable; D63.8 Anemia in other chronic diseases classified elsewhere; E78.5 Hyperlipidemia, unspecified; I11.0 Hypertensive heart disease with heart failure; Z79.01 Long term (current) use of anticoagulants; Z79.899 Other long term (current) drug therapy; Z82.49 Family history of ischemic heart disease and other diseases of the circulatory system; Z85.118 Personal history of other malignant neoplasm of bronchus and lung; Z87.891 Personal history of nicotine dependence; Z79.82 Long term (current) use of aspirin
CPT/HCPCS: 36415; 71045; 80053; 81001; 82550; 83735; 83880; 84484; 85025; 85610; 85730; 87070; 87077; 87081; 87186; 87205; 87804; 93005; 94640; 94761; 96361; 96365; 96375; G9035; J3490; J7060

== ENCOUNTER 2018-01-27 19:35 | Inpatient (IN) | payer OTHER ==
[~2018-01-27] VITALS: Ht 177.8 cm; Wt 54.0 kg
[~2018-01-27 19:35] MED LIST changes: +RIVA20TA PO
[2018-01-27 20:40] LABS: Basophils # (auto) 0 uL; Basophils % (auto) 0.1 % (0.0-2.0); Eosinophils # (auto) 0 uL; Hematocrit 35.8 % (41.0-53.0); Hemoglobin 11.5 g/dL (13.5-17.5); Lymphocytes # (auto) 0.4 uL; Lymphocytes % (auto) 4.5 % (10.0-50.0); Mean Corpuscular Hemoglobin 29.2 pg (28.0-32.0); Mean Corpuscular Hgb Conc. 32.1 g/dL (32.0-36.0); Mean Corpuscular Volume 90.8 fL (80.0-100.0); Monocytes # (auto) 0.8 uL; Monocytes % (auto) 8.2 % (0.0-12.0); Neutrophils # (auto) 8.6 uL; Neutrophils % (auto) 87.2 % (37.0-80.0); Platelet Count (auto) 313 10^3/uL (140-450); Red Blood Cells 3.94 10^6/uL (4.5-5.90); White Blood Cell 9.9 10^3/uL (4.4-10.8)
[2018-01-27 20:52] LABS: Alanine Aminotransferase 39 U/L (16-61); Albumin 3.1 g/dL (3.4-5.0); Alkaline Phosphatase 232 U/L (45-117); Anion Gap 7 (5-15); Aspartate Aminotransferase 34 U/L (15-37); BUN/Creatinine Ratio 35.7; Bilirubin, Total 0.5 mg/dL (0.2-1.0); Blood Urea Nitrogen 41 mg/dL (7-18); Calcium 8.5 mg/dL (8.5-10.1); Carbon Dioxide 24 mmol/L (21-32); Chloride 110 mmol/L (98-107); GFR African American 78 mL/min; GFR Non-African American 65 mL/min; Glucose 119 mg/dL (74-106); Magnesium 2.6 mg/dL (1.6-2.6); Potassium 4.6 mmol/L (3.5-5.1); Sodium 141 mmol/L (136-145)
[2018-01-27 21:00] LABS: INR 0.99 (0.9-1.15); Partial Thromboplastin Time 27.1 sec (22.64-33.71); Prothrombin Time 10.8 sec (9.37-12.3)
[2018-01-27] MEDS ORDERED: DIGOXIN 0.125 MG TAB PO ONE (21:15)
[2018-01-27] MEDS ORDERED: LABETALOL HCL 200 MG TAB PO ONE (22:00)
[2018-01-27] MEDS ORDERED: ONDANSETRON HCL 4 MG/2 ML VIAL IV ONE (22:30)
[2018-01-27] MEDS ORDERED: MORPHINE SULFATE 4 MG/ML SYR/VIAL IV ONE (22:30)
[2018-01-27] MEDS ORDERED: AMIODARONE HCL (50 MG/ ML) 3 ML VIAL IV ONE ×2 (22:53→23:06)
[2018-01-27] MEDS ORDERED: AMIODARONE HCL 150 MG in D5W 5% 100 ML IV ONE (23:00)
[2018-01-27] MEDS ORDERED: AMIODARONE HCL 900 MG in DEXTROSE 500 ML IV SCH (23:00)
[2018-01-27] MEDS ORDERED: MORPHINE SULFATE 4 MG/ML SYR/VIAL IV PRN (23:30)
[2018-01-27] MEDS ORDERED: NITROGLYCERIN 0.4 MG SL TAB SL PRN (23:30)
[2018-01-28] MEDS ORDERED: ACETAMINOPHEN 500 MG TAB PO PRN
[2018-01-28] MEDS ORDERED: HYDROcodone-ACET 5/325MG TAB PO PRN
[2018-01-28] MEDS ORDERED: ONDANSETRON HCL 4 MG/2 ML VIAL IV PRN
[2018-01-28] MEDS ORDERED: FUROSEMIDE 40 MG/4 ML VIAL IV ONE (00:15)
[2018-01-28] MEDS ORDERED: AMIODARONE HCL 900 MG in DEXTROSE 500 ML IV SCH (05:00)
[2018-01-28] MEDS ORDERED: FUROSEMIDE 40 MG TAB PO SCH (10:00)
[2018-01-28] MEDS ORDERED: FUROSEMIDE 40 MG/4 ML VIAL IV SCH (10:00)
[2018-01-28] MEDS: CARVEDILOL 12.5 MG TAB PO SCH ×2 (10:14→21:39)
[2018-01-28] MEDS: ENALAPRIL MALEATE 2.5 MG TAB PO SCH (10:14)
[2018-01-28] MEDS ORDERED: AMIODARONE HCL 200 MG TAB PO ONE (16:00)
[2018-01-28] MEDS ORDERED: RIVAROXABAN 20 MG TAB PO SCH (18:00)
[2018-01-28] MEDS: AMIODARONE HCL 200 MG TAB PO SCH (21:38)
[2018-01-28 23:10] VITALS: BP 143/71
[2018-01-29 05:36] VITALS: BP 124/71
[2018-01-29 07:24] LABS: BUN/Creatinine Ratio 36.9; Calcium 8.1 mg/dL (8.5-10.1); Magnesium 2.4 mg/dL (1.6-2.6); Potassium 4.1 mmol/L (3.5-5.1)
[2018-01-29 08:23] VITALS: BP 125/79
[2018-01-29] MEDS ORDERED: FUROSEMIDE 40 MG TAB PO SCH (10:00)
[2018-01-29] MEDS ORDERED: FUROSEMIDE 100 MG/10ML VIAL IV ONE (10:45)
[2018-01-29] MEDS ORDERED: POTASSIUM CHL 20 Meq TABLET PO ONE (10:45)
[2018-01-29] MEDS: CARVEDILOL 12.5 MG TAB PO SCH (11:41)
[2018-01-29] MEDS: AMIODARONE HCL 200 MG TAB PO SCH (11:41)
[2018-01-29] MEDS: ENALAPRIL MALEATE 2.5 MG TAB PO SCH (11:42)
[2018-01-29 11:57] VITALS: BP 138/87
[2018-01-29 15:33] VITALS: BP 138/87
[2018-01-29] MEDS ORDERED: BOOST PLUS 8 ounce PO SCH (18:00)
== END 2018-01-29 16:30 | disposition home or self-care (01) | DRG 291 ==
LOC: ER 19:35 → TELE 19:36 → TELE-CENTR 01-28 19:44
PROVIDERS: ADMIT Nurse Practitioner Family; ATTEND Internal Medicine
DX: I11.0 Hypertensive heart disease with heart failure (principal); J96.00 Acute respiratory failure, unspecified whether with hypoxia or hypercapnia; E43 Unspecified severe protein-calorie malnutrition; D68.69 Other thrombophilia; I48.0 Paroxysmal atrial fibrillation; C34.90 Malignant neoplasm of unspecified part of unspecified bronchus or lung; D64.9 Anemia, unspecified; J44.9 Chronic obstructive pulmonary disease, unspecified; E05.90 Thyrotoxicosis, unspecified without thyrotoxic crisis or storm; I50.43 Acute on chronic combined systolic (congestive) and diastolic (congestive) heart failure; N28.9 Disorder of kidney and ureter, unspecified; Z79.01 Long term (current) use of anticoagulants; Z82.49 Family history of ischemic heart disease and other diseases of the circulatory system; Z87.891 Personal history of nicotine dependence; Z79.899 Other long term (current) drug therapy
CPT/HCPCS: 36415; 36600; 71045; 80048; 80053; 80162; 82805; 83735; 83880; 84443; 84484; 85025; 85379; 85610; 85730; 87081; 93005; 94761; 96365; 96366; 96375; J2405; J7060

== ENCOUNTER → 2018-03-20 | Outpatient (CLI) | payer OTHER ==
[~2018-03-20] MED LIST changes: +ALBUTEROL SULF 2.5 MG/0.5ML(0.5%) NEB SOLN ONE; -BENA20TA70 PO
== END | disposition home or self-care (01) ==
LOC: RT 08:31
PROVIDERS: ATTEND Internal Medicine Pulmonary Disease
DX: J44.9 Chronic obstructive pulmonary disease, unspecified (principal); Z79.01 Long term (current) use of anticoagulants; Z79.82 Long term (current) use of aspirin
CPT/HCPCS: 94060; 94640

== ENCOUNTER → 2018-04-28 | Outpatient (CLI) | payer OTHER ==
[~2018-04-28] MED LIST changes: -ALBUTEROL SULF 2.5 MG/0.5ML(0.5%) NEB SOLN ONE
== END | disposition home or self-care (01) ==
LOC: XYW 09:17
PROVIDERS: ATTEND Internal Medicine Cardiovascular Disease
DX: I08.1 Rheumatic disorders of both mitral and tricuspid valves (principal); I42.0 Dilated cardiomyopathy; J44.9 Chronic obstructive pulmonary disease, unspecified; Z79.01 Long term (current) use of anticoagulants; Z79.82 Long term (current) use of aspirin
CPT/HCPCS: 93306

== ENCOUNTER → 2018-05-04 | Outpatient (CLI) | payer OTHER | END | disposition home or self-care (01) | LOC: LAB 10:22 | PROVIDERS: ATTEND Internal Medicine Cardiovascular Disease | DX: I48.91 Unspecified atrial fibrillation (principal); I42.0 Dilated cardiomyopathy; J44.9 Chronic obstructive pulmonary disease, unspecified; Z79.01 Long term (current) use of anticoagulants; Z79.82 Long term (current) use of aspirin | CPT/HCPCS: 83880 ==

== ENCOUNTER → 2018-10-08 | Outpatient (CLI) | payer OTHER, MEDICARE ==
[2018-10-08 11:09] LABS: Basophils # (auto) 0 uL; Eosinophils # (auto) 0.1 uL; Hemoglobin 11.1 g/dL (13.5-17.5); Mean Corpuscular Hemoglobin 20.8 pg (28.0-32.0); Monocytes # (auto) 0.4 uL; Neutrophils # (auto) 2.6 uL; Nucleated Red Blood Cells % 0.1 %; Red Blood Cells 5.33 10^6/uL (4.5-5.90)
[2018-10-08 11:12] LABS: Basophils % (auto) 0.5 % (0.0-2.0); Hematocrit 36.8 % (41.0-53.0); Lymphocytes # (auto) 0.8 uL; Lymphocytes % (auto) 20.6 % (10.0-50.0); Mean Corpuscular Hgb Conc. 30.1 g/dL (32.0-36.0); Mean Corpuscular Volume 69.1 fL (80.0-100.0); Monocytes % (auto) 10.2 % (0.0-12.0); Neutrophils % (auto) 65.7 % (37.0-80.0); Platelet Count (auto) 226 10^3/uL (140-450); Red Cell Distribution Width 19.9 % (11.8-14.3)
[2018-10-08 11:35] LABS: Albumin 3.4 g/dL (3.4-5.0); Calcium 9.3 mg/dL (8.5-10.1); Potassium 5.1 mmol/L (3.5-5.1)
[2018-10-08 11:38] LABS: BUN/Creatinine Ratio 22.2; Bilirubin, Total 0.5 mg/dL (0.2-1.0); Total Protein 7.4 g/dL (6.4-8.2)
== END | disposition home or self-care (01) ==
LOC: LAB 09:44
PROVIDERS: ATTEND Internal Medicine
DX: R91.1 Solitary pulmonary nodule (principal); I11.0 Hypertensive heart disease with heart failure; I50.9 Heart failure, unspecified; J44.9 Chronic obstructive pulmonary disease, unspecified
CPT/HCPCS: 36415; 80053; 83615; 85025

== ENCOUNTER → 2018-12-24 | Outpatient (CLI) | payer BC, MEDICARE, OTHER | END | disposition home or self-care (01) | LOC: XY 09:13 | PROVIDERS: ATTEND Internal Medicine | DX: L03.032 Cellulitis of left toe (principal) | CPT/HCPCS: 93925 ==

== ENCOUNTER 2019-03-06 15:18 | Emergency (ER) | payer BC, MEDICARE, OTHER ==
[~2019-03-06] VITALS: Ht 180.3 cm; Wt 49.9 kg
[2019-03-06 23:11] VITALS: BP 144/73
== END 2019-03-06 23:24 | disposition short-term general hospital (02) ==
LOC: ER 15:18
DX: S22.089A Unspecified fracture of T11-T12 vertebra, initial encounter for closed fracture (principal); J44.9 Chronic obstructive pulmonary disease, unspecified; I10 Essential (primary) hypertension; E78.5 Hyperlipidemia, unspecified; I48.91 Unspecified atrial fibrillation; W01.0XXA Fall on same level from slipping, tripping and stumbling without subsequent striking against object, initial encounter; Y93.89 Activity, other specified; Y99.8 Other external cause status; Y92.89 Other specified places as the place of occurrence of the external cause
CPT/HCPCS: 72100; 72128; 72131

== ENCOUNTER 2019-03-14 05:48 | Inpatient (IN) | payer BC ==
[~2019-03-14] VITALS: Ht 180.3 cm; Wt 51.9 kg
[2019-03-14] VITALS (7 sets, daily range): BP systolic 75–132; BP diastolic 33–64
--- NOTE | 2019-03-14 07:22 | NUR ---
Direct Admit Note JAKUB WILD admitted to Telemetry unit as a transfer from [facility]. Patient oriented to FERMIN GALLAGHER, primary RN, room 220 bed A, and unit policies regarding patient care and visiting hours. Patient weighed by bed scale and encouraged to call if they need something. All questions and concerns addressed, patient verbalized understanding. paged to notify of patients arrival. Kika Vaughan is accepting Dr. Betancourt
[2019-03-14] MEDS ORDERED: NITROGLYCERIN 0.4 MG SL TAB SL PRN (09:15)
[2019-03-14] MEDS ORDERED: MORPHINE SULF INJ 2 MG/ML SYRINGE 1ML IV PRN ×2 (09:15)
[2019-03-14] MEDS ORDERED: ONDANSETRON HCL 4 MG/2 ML VIAL IV PRN (09:15)
[2019-03-14] MEDS ORDERED: ACETAMINOPHEN 500 MG TAB PO PRN (09:15)
[2019-03-14] MEDS ORDERED: DOCUSATE SOD 100 MG CAP PO PRN (09:15)
[2019-03-14] MEDS ORDERED: HYDROcodone-ACET 5/325MG TAB PO PRN (09:15)
[2019-03-14] MEDS ORDERED: ENALAPRIL MALEATE 2.5 MG TAB PO SCH (10:00)
[2019-03-14] MEDS ORDERED: AMIODARONE HCL 200 MG TAB PO SCH (10:00)
[2019-03-14] MEDS ORDERED: PANTOPRAZOLE 40 MG/10 ML VIAL IV SCH (10:00)
[2019-03-14] MEDS ORDERED: CARVEDILOL 12.5 MG TAB PO SCH (10:00)
[2019-03-14] MEDS ORDERED: cefTRIAXone 1GM/50ML D5W 50 ML IV SCH (10:00)
[2019-03-14] MEDS ORDERED: AZITHROMYCIN 500MG/ 250ML 250 ML IV ONE ×2 (11:00→13:30)
[2019-03-14] MEDS ORDERED: PIPERACILLIN-TAZOB 3.375GM 100 ML IV SCH (12:00)
[2019-03-14 13:25] LABS: Basophils # (auto) 0 uL; Basophils % (auto) 0.2 % (0.0-2.0); Eosinophils # (auto) 0 uL; Mean Corpuscular Hgb Conc. 29.9 g/dL (32.0-36.0); Monocytes # (auto) 0.4 uL; Neutrophils # (auto) 5.8 uL; White Blood Cell 6.5 10^3/uL (4.4-10.8)
[2019-03-14 13:26] LABS: Eosinophils % (auto) 0.5 % (0.0-7.0); Hematocrit 29.8 % (41.0-53.0); Hemoglobin 8.9 g/dL (13.5-17.5); Lymphocytes # (auto) 0.2 uL; Lymphocytes % (auto) 3.6 % (10.0-50.0); Mean Corpuscular Hemoglobin 21.7 pg (28.0-32.0); Mean Corpuscular Volume 72.3 fL (80.0-100.0); Monocytes % (auto) 6.3 % (0.0-12.0); Neutrophils % (auto) 89.4 % (37.0-80.0); Platelet Count (auto) 239 10^3/uL (140-450); Red Blood Cells 4.11 10^6/uL (4.5-5.90)
[2019-03-14 13:28] LABS: Red Cell Distribution Width 22.3 % (11.8-14.3)
[2019-03-14 13:43] LABS: Albumin 2.6 g/dL (3.4-5.0); Calcium 7.1 mg/dL (8.5-10.1); Potassium 4.1 mmol/L (3.5-5.1)
[2019-03-14 13:50] LABS: BUN/Creatinine Ratio 23.1; Bilirubin, Total 0.5 mg/dL (0.2-1.0); Total Protein 5.3 g/dL (6.4-8.2)
[2019-03-14] MEDS: ALBUTEROL SULF 2.5 MG/0.5ML(0.5%) NEB SOLN NEB SCH ×2 (14:01→18:47)
[2019-03-14] MEDS: IPRATROPIUM BROM 0.5 MG/2.5ML INH SOL NEB SCH ×2 (14:02→18:47)
[2019-03-14] MEDS: BUDESONIDE (INHALATION) 0.5 MG/2 ML NEB NEB SCH ×2 (14:02→18:47)
--- NOTE | 2019-03-14 14:03 | NUR ---
PATIENT'S MENTAL STATUS IS ALTERED, ASSESSED BP 75/34, sPo2 82 AT 2L OXYGEN N/C. TITRATED O2 TO 3.5L SPO2 AT 85%. INFORMED DR. LIVINGSTON, NEW ORDERS RECEIVED
[2019-03-14] MEDS ORDERED: SODIUM CHLORIDE 0.9% 500 ML IV ONE (14:15)
--- NOTE | 2019-03-14 14:21 | NUR ---
DR. LIVINGSTON GAVE INSTRUCTIONS: IF SYSTOLIC BP DOES NOT IMPROVE TO 90 AFTER ORDERED BOLUS, TRANSFER PATIENT TO [facility] AND BEGIN LEVOPHED PROTOCOL.
--- NOTE | 2019-03-14 14:57 | NUR ---
PATIENT TAKEN DOWN TO RADIOLOGY.
--- NOTE | 2019-03-14 15:50 | NUR ---
BP ASSESSMENT: 600ML OUT OF 1000ML INFUSED 83/33mmHg, HR 50. PATIENT RESPONDS TO LOUD VOICE, IS ABLE TO VERBALIZE CURRENT SITUATION, LOCATION AND DATE OF .
--- NOTE | 2019-03-14 16:21 | NUR ---
BP ASSESSMENT 1000ML BOLUS INFUSED 86/50mmHg, HR 54, SpO2 97% ON 2L N/C. AWAKE AND ALERT, SITTING UP IN BED DRINKING WATER. NO S/S OF DISTRESS OR SOB NOTED. WILL INFORM DR. LIVINGSTON OF PATIENT'S PROGRESS.
--- NOTE | 2019-03-14 16:54 | NUR ---
BP INCREASED TO 91/41, CALLED DR. LIVINGSTON AND LEFT MESSAGE REGARDING PATIENT PROGRESS.
--- NOTE | 2019-03-14 17:18 | NUR ---
SPOKE TO TOÑO DUFF, INSTRUCTED TO HOLD COREG IF SYSTOLIC BLOOD PRESSURE IS LESS THAN 100.
--- NOTE | 2019-03-14 17:28 | NUR ---
PATIENT UP, AMBULATED TO THE RESTROOM. TOLERATED WELL.
[2019-03-14] MEDS ORDERED: RIVAROXABAN 15 MG TAB PO SCH (18:00)
--- NOTE | 2019-03-14 19:25 | NUR ---
OPENING NOTE PATIENT IS SITTING UP IN BED TALKING IN NORMAL TONE WITH RN. HIS RESPIRATIONS ARE EVEN AND UNLABORED. HE IS A/OX4 WITH A BLOOD PRESSURE 103/68 AND A HR OF 58. NO S/S OF DISTRESS NOTED AT THIS TIME. FALL PRECAUTIONS ARE IN PLACE. BED IS IN LOWEST POSITION, LOCKED, CALL LIGHT IS IN REACH. SITTER IS IN ROOM. POC DISCUSSED. PATIENT VERBALIZED UNDERSTANDING. WILL CONTINUE TO MONITOR.
[2019-03-14] MEDS ORDERED: CARVEDILOL 3.125 MG TAB PO SCH (22:00)
[2019-03-14] MEDS ORDERED: ATORVASTATIN 20 MG TAB PO SCH (22:00)
--- NOTE | 2019-03-15 00:50 | NUR ---
PATIENT PULLED OUT IV/AMA REQUEST PATIENT WOKE UP ASKING JAY PARRY FOR A CIGARETTE. SOHAN STATED THAT SHE TOLD HIM THAT SHE DOES NOT HAVE ANY. SOHAN STATED THAT THE PATIENT THEN BECAME ANGRY AND STARTED GETTING DRESSED STATING THAT HE WAS GOING TO LEAVE THIS PLACE. SOHAN THEN CALLED RN FERMIN GALLAGHER. PATIENT STATED HE WANTED OUT OF HERE. ENCOURAGED PATIENT TO STAY AND STATED RISKS OF GOING HOME AMA AND THE BENEFITS OF STAYING FOR TREATMENT. PATIENT THEN RIPPED OUT HIS IV FROM HIS ARM AND YELLED THAT HE WAS GOING HOME. THE PATIENT PICKED UP THE PHONE AND CALLED HIS ROOM. ROOM MATE IS UNABLE TO COME PICK PATIENT UP SO PATIENT STATES THAT HE WILL STAY UNTIL THE MORNING. PATIENT REQUESTED TO WALK TO THE LIQUOR STORE TO GET SMOKES, BUT INFORMED PATIENT THAT HE IS NOT PERMITTED TO THAT. BROOKE WAS PAGED AND NOTIFIED OF PATIENTS WISHES.
--- NOTE | 2019-03-15 02:05 | NUR ---
VIMALA PATIENT ROOM MATE CAME TO FILTER TIP INSPECTOR THE PATIENT. PATIENT STATED THAT HE WANTED TO LEAVE NOW.
[2019-03-15 03:08] VITALS: BP 104/54
[2019-03-15] MEDS ORDERED: AZITHROMYCIN 500MG/ 250ML 250 ML IV SCH (10:00)
--- NOTE | 2019-03-15 10:03 | NUR ---
concrete engineering technician 03/14/19 Per consult lack of support at home. Patient was admitted and discharged within 1 day. No call or page on this patient. Addendum: 03/15/19 at 1004 by Ree Jacinto Amended: Links added.
== END 2019-03-15 02:07 | disposition left against medical advice (07) | DRG 291 ==
LOC: TELE-CENTR 05:48
PROVIDERS: ADMIT Nurse Practitioner Family; ATTEND Nurse Practitioner Family
DX: I13.0 Hypertensive heart and chronic kidney disease with heart failure and stage 1 through stage 4 chronic kidney disease, or unspecified chronic kidney disease (principal); J18.9 Pneumonia, unspecified organism; J96.21 Acute and chronic respiratory failure with hypoxia; I50.43 Acute on chronic combined systolic (congestive) and diastolic (congestive) heart failure; J44.0 Chronic obstructive pulmonary disease with (acute) lower respiratory infection; J44.1 Chronic obstructive pulmonary disease with (acute) exacerbation; I50.32 Chronic diastolic (congestive) heart failure; J20.9 Acute bronchitis, unspecified; K59.00 Constipation, unspecified; F17.200 Nicotine dependence, unspecified, uncomplicated; E78.00 Pure hypercholesterolemia, unspecified; Z53.21 Procedure and treatment not carried out due to patient leaving prior to being seen by health care provider; I48.91 Unspecified atrial fibrillation; N28.1 Cyst of kidney, acquired; N18.3 Chronic kidney disease, stage 3 (moderate); Z79.01 Long term (current) use of anticoagulants; Z79.899 Other long term (current) drug therapy; Z82.49 Family history of ischemic heart disease and other diseases of the circulatory system; Z85.118 Personal history of other malignant neoplasm of bronchus and lung; Z92.21 Personal history of antineoplastic chemotherapy; Z92.3 Personal history of irradiation
CPT/HCPCS: 36415; 71045; 74176; 76775; 80053; 82962; 83880; 84484; 85025; 87081; 94640; C9113; G0378; J0696

== ENCOUNTER 2019-03-15 16:32 | Emergency (ER) | payer BC ==
[~2019-03-15] VITALS: Ht 180.3 cm; Wt 49.9 kg
[2019-03-15 23:20] VITALS: BP 154/78
== END 2019-03-15 23:55 | disposition home or self-care (01) ==
LOC: ER 16:32
DX: S22.088A Other fracture of T11-T12 vertebra, initial encounter for closed fracture (principal); M51.34 Other intervertebral disc degeneration, thoracic region; I11.0 Hypertensive heart disease with heart failure; I50.9 Heart failure, unspecified; J44.9 Chronic obstructive pulmonary disease, unspecified; I48.91 Unspecified atrial fibrillation; E78.00 Pure hypercholesterolemia, unspecified; Z87.891 Personal history of nicotine dependence; Z79.899 Other long term (current) drug therapy; Z79.2 Long term (current) use of antibiotics; W01.0XXA Fall on same level from slipping, tripping and stumbling without subsequent striking against object, initial encounter; Y93.89 Activity, other specified; Y99.8 Other external cause status; Y92.89 Other specified places as the place of occurrence of the external cause
CPT/HCPCS: 72100

== ENCOUNTER 2019-03-22 17:01 | Emergency (ER) | payer BC ==
[~2019-03-22] VITALS: Ht 180.3 cm; Wt 51.3 kg
[2019-03-22 18:16] LABS: Potassium 4.4 mmol/L (3.5-5.1)
[2019-03-22 18:17] LABS: INR 1.13 (0.9-1.15); Partial Thromboplastin Time 34.5 sec (23.78-33.04)
[2019-03-22 18:19] LABS: Calcium 8.1 mg/dL (8.5-10.1)
[2019-03-22 18:24] LABS: BUN/Creatinine Ratio 19.4; Bilirubin, Total 0.2 mg/dL (0.2-1.0); Total Protein 6.2 g/dL (6.4-8.2)
[2019-03-22 18:25] LABS: Basophils # (auto) 0 uL; Eosinophils # (auto) 0.1 uL; Hemoglobin 9.3 g/dL (13.5-17.5); Lymphocytes # (auto) 0.6 uL; Mean Corpuscular Hemoglobin 21.8 pg (28.0-32.0); Monocytes # (auto) 0.5 uL; Neutrophils # (auto) 3.7 uL; Nucleated Red Blood Cells % 0.1 %
[2019-03-22 18:28] LABS: Basophils % (auto) 0.7 % (0.0-2.0); Hematocrit 31.2 % (41.0-53.0); Mean Corpuscular Hgb Conc. 29.7 g/dL (32.0-36.0); Mean Corpuscular Volume 73.6 fL (80.0-100.0); Monocytes % (auto) 10.2 % (0.0-12.0); Neutrophils % (auto) 75.1 % (37.0-80.0); Platelet Count (auto) 332 10^3/uL (140-450); Red Blood Cells 4.24 10^6/uL (4.5-5.90)
[2019-03-22 19:07] LABS: Red Cell Distribution Width 21.9 % (11.8-14.3)
[2019-03-22 20:17] VITALS: BP 142/51
== END 2019-03-22 20:19 | disposition home or self-care (01) ==
LOC: ER 17:06
DX: I11.0 Hypertensive heart disease with heart failure (principal); I50.9 Heart failure, unspecified; E78.5 Hyperlipidemia, unspecified; J44.9 Chronic obstructive pulmonary disease, unspecified; I48.91 Unspecified atrial fibrillation
CPT/HCPCS: 36415; 71046; 80053; 83880; 85025; 85610; 85730; 93005; 93970

== ENCOUNTER → 2019-04-14 | Outpatient (CLI) | payer BC ==
[2019-04-14 16:51] LABS: Potassium 4.2 mmol/L (3.5-5.1)
[2019-04-14 16:53] LABS: BUN/Creatinine Ratio 18.5
== END | disposition home or self-care (01) ==
LOC: LAB 16:26
PROVIDERS: ATTEND Internal Medicine
DX: I11.0 Hypertensive heart disease with heart failure (principal); I50.22 Chronic systolic (congestive) heart failure
CPT/HCPCS: 36415; 80048; 83880

== ENCOUNTER → 2019-04-29 | Outpatient (CLI) | payer BC, MEDICARE, OTHER ==
[2019-04-29 10:39] LABS: BUN/Creatinine Ratio 28.8; Calcium 8.4 mg/dL (8.5-10.1); Potassium 5.1 mmol/L (3.5-5.1)
== END | disposition home or self-care (01) ==
LOC: LAB 10:09
PROVIDERS: ATTEND Internal Medicine
DX: I11.0 Hypertensive heart disease with heart failure (principal); I50.22 Chronic systolic (congestive) heart failure
CPT/HCPCS: 36415; 80048; 83880

== ENCOUNTER 2019-05-08 10:39 | Emergency (ER) | payer BC, OTHER ==
[~2019-05-08] VITALS: Ht 180.3 cm; Wt 52.2 kg
[2019-05-08 12:18] VITALS: BP 129/50
== END 2019-05-08 13:15 | disposition home or self-care (01) ==
LOC: ER 10:39
DX: M79.631 Pain in right forearm (principal); R21 Rash and other nonspecific skin eruption; I11.0 Hypertensive heart disease with heart failure; I50.9 Heart failure, unspecified; J44.9 Chronic obstructive pulmonary disease, unspecified; E78.5 Hyperlipidemia, unspecified; Z87.891 Personal history of nicotine dependence; Z86.39 Personal history of other endocrine, nutritional and metabolic disease

== ENCOUNTER → 2019-06-15 | Outpatient (CLI) | payer OTHER ==
[2019-06-15 13:28] LABS: Basophils # (auto) 0 uL; Eosinophils # (auto) 0.2 uL; Hemoglobin 9.5 g/dL (13.5-17.5); Lymphocytes # (auto) 0.9 uL; Monocytes # (auto) 0.3 uL; White Blood Cell 3.4 10^3/uL (4.4-10.8)
[2019-06-15 13:30] LABS: Eosinophils % (auto) 5.9 % (0.0-7.0); Hematocrit 30.8 % (41.0-53.0); Lymphocytes % (auto) 25.5 % (10.0-50.0); Mean Corpuscular Hgb Conc. 30.7 g/dL (32.0-36.0); Mean Corpuscular Volume 68.4 fL (80.0-100.0); Neutrophils % (auto) 57.6 % (37.0-80.0); Platelet Count (auto) 274 10^3/uL (140-450); Red Blood Cells 4.51 10^6/uL (4.5-5.90)
[2019-06-15 13:39] LABS: Red Cell Distribution Width 20.2 % (11.8-14.3)
[2019-06-15 14:01] LABS: Potassium 5.2 mmol/L (3.5-5.1)
[2019-06-15 14:19] LABS: Albumin 2.4 g/dL (3.4-5.0); BUN/Creatinine Ratio 23.2; Bilirubin, Total 0.3 mg/dL (0.2-1.0); Calcium 8.5 mg/dL (8.5-10.1); Total Protein 6.8 g/dL (6.4-8.2)
== END | disposition home or self-care (01) ==
LOC: LAB 13:14
PROVIDERS: ATTEND Internal Medicine
DX: R91.1 Solitary pulmonary nodule (principal)
CPT/HCPCS: 36415; 80053; 83615; 85025

== ENCOUNTER 2019-07-01 20:26 | Inpatient (IN) | payer BC, OTHER | END 2019-07-03 10:25 | disposition home or self-care (01) | LOC: OVERFLOW 20:27 → ER 20:26 → EAST 07-02 10:23 ==

== ENCOUNTER → 2019-08-04 | Outpatient (CLI) | payer BC ==
[2019-08-04 14:40] LABS: BUN/Creatinine Ratio 21.7; Calcium 8.6 mg/dL (8.5-10.1); Potassium 4.1 mmol/L (3.5-5.1)
== END | disposition home or self-care (01) ==
LOC: LAB 14:08
PROVIDERS: ATTEND Internal Medicine
DX: M54.2 Cervicalgia (principal); M62.838 Other muscle spasm
CPT/HCPCS: 36415; 80048

== ENCOUNTER 2019-09-09 14:45 | Inpatient (IN) | payer BC, MEDICARE ==
[~2019-09-09] VITALS: Ht 172.7 cm; Wt 48.9 kg
[2019-09-09] MEDS ORDERED: ASPirin 81 mg TAB PO ONE (15:00)
[2019-09-09 15:20] LABS: Basophils # (auto) 0 uL; Hemoglobin 9.9 g/dL (13.5-17.5); Lymphocytes # (auto) 0.9 uL; Mean Corpuscular Hemoglobin 23.3 pg (28.0-32.0); Monocytes # (auto) 0.5 uL; Neutrophils # (auto) 2.7 uL; White Blood Cell 4.2 10^3/uL (4.4-10.8)
[2019-09-09 15:22] LABS: Basophils % (auto) 0.8 % (0.0-2.0); Eosinophils # (auto) 0.1 uL; Eosinophils % (auto) 3.2 % (0.0-7.0); Lymphocytes % (auto) 20.6 % (10.0-50.0); Monocytes % (auto) 11.4 % (0.0-12.0); Platelet Count (auto) 194 10^3/uL (140-450); Red Blood Cells 4.26 10^6/uL (4.5-5.90); Red Cell Distribution Width 19.8 % (11.8-14.3)
[2019-09-09 15:33] LABS: Alanine Aminotransferase 18 U/L (16-61); Albumin 3.4 g/dL (3.4-5.0); Anion Gap 7 (5-15); Blood Urea Nitrogen 20 mg/dL (7-18); Calcium 8.8 mg/dL (8.5-10.1); Carbon Dioxide 26 mmol/L (21-32); Chloride 114 mmol/L (98-107); Glucose 95 mg/dL (74-106); Potassium 3.7 mmol/L (3.5-5.1); Sodium 147 mmol/L (136-145)
[2019-09-09 15:38] LABS: Alkaline Phosphatase 114 U/L (45-117); Aspartate Aminotransferase 19 U/L (15-37); BUN/Creatinine Ratio 18.9; Bilirubin, Total 0.3 mg/dL (0.2-1.0); GFR African American 86 mL/min; GFR Non-African American 71 mL/min; Total Protein 6.6 g/dL (6.4-8.2)
[2019-09-09] MEDS ORDERED: ONDANSETRON HCL 4 MG/2 ML VIAL IV PRN (16:45)
[2019-09-09] MEDS ORDERED: MORPHINE SULF INJ 2 MG/ML SYRINGE 1ML IV PRN ×2 (16:45)
[2019-09-09] MEDS ORDERED: HYDROcodone-ACET 5/325MG TAB PO PRN (16:45)
[2019-09-09] MEDS ORDERED: NITROGLYCERIN 0.4 MG SL TAB SL PRN (16:45)
[2019-09-09] MEDS ORDERED: ACETAMINOPHEN 500 MG TAB PO PRN (16:45)
[2019-09-09] MEDS: AZITHROMYCIN 500MG/ 250ML 250 ML IV SCH (16:58)
[2019-09-09 17:06] VITALS: BP 160/78
[2019-09-09] MEDS: LEVALBUTEROL HCL 1.25 MG/3 ML NEB NEB SCH (18:40)
[2019-09-09] MEDS: IPRATROPIUM BROM 0.5 MG/2.5ML INH SOL NEB SCH (18:40)
[2019-09-09 20:00] VITALS: BP 142/88
--- NOTE | 2019-09-09 20:00 | NUR ---
Telemetry admit from [facility] admitted to Telemetry unit. Patient oriented to Ashleigh SanchezRN primary RN, unit, room, bed, and unit policies regarding patient care and visiting hours. Patient now on continuous telemetry monitoring, tele box #[id number]. Patient A&Ox4, ambulatory. No acute S/S of distress, SOB or pain. Bed in lowest locked position, side rails up x 2, call light within reach. Weighed by bed scale and encouraged to call if they need something. All questions and concerns addressed, patient verbalized understanding. Will continue to monitor every hour and as needed.
[2019-09-09] MEDS: metroNIDAZOLE 500 MG TAB PO SCH (21:52)
[2019-09-09] MEDS: CARVEDILOL 12.5 MG TAB PO SCH (21:52)
[2019-09-09 23:46] VITALS: BP 142/88
[2019-09-10 05:37] VITALS: BP 118/56
[2019-09-10] MEDS: metroNIDAZOLE 500 MG TAB PO SCH (05:49)
[2019-09-10] MEDS: IPRATROPIUM BROM 0.5 MG/2.5ML INH SOL NEB SCH ×2 (06:24→12:03)
[2019-09-10] MEDS: LEVALBUTEROL HCL 1.25 MG/3 ML NEB NEB SCH ×2 (06:25→12:03)
[2019-09-10 06:48] LABS: Basophils # (auto) 0 uL; Basophils % (auto) 0.6 % (0.0-2.0); Eosinophils # (auto) 0.2 uL; Hematocrit 29.9 % (41.0-53.0); Hemoglobin 9.4 g/dL (13.5-17.5); Lymphocytes # (auto) 0.9 uL; Mean Corpuscular Volume 74.6 fL (80.0-100.0); Monocytes # (auto) 0.6 uL
[2019-09-10 06:53] LABS: Eosinophils % (auto) 4.9 % (0.0-7.0); Lymphocytes % (auto) 23.7 % (10.0-50.0); Mean Corpuscular Hemoglobin 23.4 pg (28.0-32.0); Mean Corpuscular Hgb Conc. 31.3 g/dL (32.0-36.0); Monocytes % (auto) 14.9 % (0.0-12.0); Neutrophils # (auto) 2.2 uL; Neutrophils % (auto) 55.9 % (37.0-80.0); Platelet Count (auto) 168 10^3/uL (140-450); Red Blood Cells 4.01 10^6/uL (4.5-5.90); Red Cell Distribution Width 19.7 % (11.8-14.3)
[2019-09-10 07:05] LABS: Potassium 3.7 mmol/L (3.5-5.1)
[2019-09-10 07:08] LABS: BUN/Creatinine Ratio 17.5; Calcium 8.5 mg/dL (8.5-10.1)
[2019-09-10 09:00] VITALS: BP 153/72
[2019-09-10] MEDS: AZITHROMYCIN 500MG/ 250ML 250 ML IV SCH (10:00)
[2019-09-10] MEDS ORDERED: PRAVASTATIN SODIUM 20 MG TAB PO SCH (10:00)
[2019-09-10] MEDS ORDERED: ENALAPRIL MALEATE 2.5 MG TAB PO SCH (10:00)
[2019-09-10] MEDS ORDERED: RIVAROXABAN 15 MG TAB PO SCH (10:00)
[2019-09-10] MEDS ORDERED: FAMOTIDINE 20 MG TAB PO SCH (10:00)
[2019-09-10] MEDS: CARVEDILOL 12.5 MG TAB PO SCH (10:12)
[2019-09-10] MEDS ORDERED: UMEC1AER IN (11:59)
[2019-09-10] MEDS ORDERED: ALBUAER3 IN (12:00)
[2019-09-10] MEDS ORDERED: FLUT110A INH (12:02)
[2019-09-10 12:40] VITALS: BP 153/72
[2019-09-10 13:00] VITALS: BP 138/69
--- NOTE | 2019-09-10 13:05 | NUR ---
Discharge instructions given as ordered. Encourage to follow up with PMD as instructed. All questions and concerns addressed. Patient verbalized understanding. Medication reconciliation form completed and copy given to patient. IV removed with catheter intact, pressure dressing applied. Telemetry unit returned to ICU. Patient taken to ER via wheelchair with all personal belongings, accompanied by staff TO WAIT FOR HIS RIDE. No distress noted at time of departure.
== END 2019-09-10 13:00 | disposition home or self-care (01) | DRG 190 ==
LOC: ER 14:49 → TELE 14:50 → TELE-WESTW 20:07
PROVIDERS: ADMIT Nurse Practitioner Acute Care; ATTEND Internal Medicine
DX: J44.1 Chronic obstructive pulmonary disease with (acute) exacerbation (principal); I50.23 Acute on chronic systolic (congestive) heart failure; J96.10 Chronic respiratory failure, unspecified whether with hypoxia or hypercapnia; R64 Cachexia; E87.0 Hyperosmolality and hypernatremia; Z68.1 Body mass index [BMI] 19.9 or less, adult; D68.69 Other thrombophilia; I11.0 Hypertensive heart disease with heart failure; R07.89 Other chest pain; I48.0 Paroxysmal atrial fibrillation; D50.9 Iron deficiency anemia, unspecified; F17.210 Nicotine dependence, cigarettes, uncomplicated; E86.0 Dehydration; D72.819 Decreased white blood cell count, unspecified; I49.3 Ventricular premature depolarization; E78.5 Hyperlipidemia, unspecified; I70.0 Atherosclerosis of aorta; E03.9 Hypothyroidism, unspecified; F41.9 Anxiety disorder, unspecified; Z99.81 Dependence on supplemental oxygen; Z79.01 Long term (current) use of anticoagulants; Z79.899 Other long term (current) drug therapy; Z85.118 Personal history of other malignant neoplasm of bronchus and lung; Z82.49 Family history of ischemic heart disease and other diseases of the circulatory system
CPT/HCPCS: 36415; 71046; 80048; 80053; 83880; 84484; 85025; 86141; 93005; 93306; 94640; 94761; 96365; G0378

== ENCOUNTER → 2019-10-07 | Outpatient (CLI) | payer BC, MEDICARE ==
[~2019-10-07] MED LIST changes: +ALBUAER3 IN; -DOXY-216 PO; +FLUT110A INH; +UMEC1AER IN
[2019-10-07 15:23] LABS: Basophils # (auto) 0 uL; Eosinophils # (auto) 0.1 uL; Eosinophils % (auto) 3.2 % (0.0-7.0); Hemoglobin 9.3 g/dL (13.5-17.5); Lymphocytes # (auto) 0.9 uL; Monocytes # (auto) 0.4 uL; Red Blood Cells 3.94 10^6/uL (4.5-5.90)
[2019-10-07 15:26] LABS: Basophils % (auto) 0.5 % (0.0-2.0); Hematocrit 29.6 % (41.0-53.0); Lymphocytes % (auto) 19.3 % (10.0-50.0); Mean Corpuscular Hemoglobin 23.6 pg (28.0-32.0); Mean Corpuscular Hgb Conc. 31.3 g/dL (32.0-36.0); Mean Corpuscular Volume 75.3 fL (80.0-100.0); Neutrophils # (auto) 3.2 uL; Nucleated Red Blood Cells % 0.1 %; Platelet Count (auto) 212 10^3/uL (140-450); Red Cell Distribution Width 18.2 % (11.8-14.3); White Blood Cell 4.6 10^3/uL (4.4-10.8)
[2019-10-07 16:14] LABS: % Iron Saturation 3.8 % (20-55)
[2019-10-07 16:20] LABS: Ferritin 11.3 ng/mL (10-322); Free T4 (Free Thyroxine) 0.86 ng/dL (0.89-1.76)
[2019-10-07 16:22] LABS: Calcium 8.8 mg/dL (8.5-10.1); Glucose 136 mg/dL (74-106)
[2019-10-07 16:39] LABS: Folate (Folic Acid) 23.03 ng/mL (5.38-24)
[2019-10-07 17:03] LABS: Alkaline Phosphatase 116 U/L (45-117); Anion Gap 18 (5-15); BUN/Creatinine Ratio 15.2; Blood Urea Nitrogen 20 mg/dL (7-18); Carbon Dioxide 18 mmol/L (21-32); Chloride 110 mmol/L (98-107); GFR African American 66 mL/min; GFR Non-African American 55 mL/min; Potassium 3.3 mmol/L (3.5-5.1); Sodium 146 mmol/L (136-145)
[2019-10-07 17:04] LABS: Alanine Aminotransferase 15 U/L (16-61); Aspartate Aminotransferase 13 U/L (15-37); Bilirubin, Total 0.3 mg/dL (0.2-1.0); Total Protein 6.4 g/dL (6.4-8.2)
[2019-10-07 17:08] LABS: Lactate Dehydrogenase 170 U/L (87-241)
[2019-10-07 17:25] LABS: Albumin 3.4 g/dL (3.4-5.0)
== END | disposition home or self-care (01) ==
LOC: LAB 14:51
PROVIDERS: ATTEND Internal Medicine
DX: R91.1 Solitary pulmonary nodule (principal); I48.91 Unspecified atrial fibrillation; I11.0 Hypertensive heart disease with heart failure; I50.9 Heart failure, unspecified; E78.5 Hyperlipidemia, unspecified; J44.9 Chronic obstructive pulmonary disease, unspecified; F17.200 Nicotine dependence, unspecified, uncomplicated; Z85.118 Personal history of other malignant neoplasm of bronchus and lung
CPT/HCPCS: 36415; 80053; 82607; 82668; 82728; 82746; 83010; 83540; 83550; 83615; 84436; 84439; 84443; 85025; 85045; 85652; 86038; 86880; 86885

== ENCOUNTER 2019-10-16 23:47 | Emergency (ER) | payer BC ==
[~2019-10-16] VITALS: Ht 180.3 cm; Wt 49.9 kg
[2019-10-17 01:13] LABS: Basophils # (auto) 0 uL; Eosinophils # (auto) 0.1 uL; Hemoglobin 9.4 g/dL (13.5-17.5); Lymphocytes # (auto) 0.9 uL; Monocytes # (auto) 0.5 uL; Neutrophils # (auto) 3.9 uL; Red Cell Distribution Width 17.9 % (11.8-14.3); White Blood Cell 5.5 10^3/uL (4.4-10.8)
[2019-10-17 01:14] LABS: Basophils % (auto) 0.3 % (0.0-2.0); Eosinophils % (auto) 2.4 % (0.0-7.0); Hematocrit 29.2 % (41.0-53.0); Lymphocytes % (auto) 17.2 % (10.0-50.0); Mean Corpuscular Hemoglobin 23.9 pg (28.0-32.0); Mean Corpuscular Volume 74.7 fL (80.0-100.0); Monocytes % (auto) 8.4 % (0.0-12.0); Neutrophils % (auto) 71.7 % (37.0-80.0); Platelet Count (auto) 188 10^3/uL (140-450); Red Blood Cells 3.91 10^6/uL (4.5-5.90)
[2019-10-17 01:31] LABS: Alanine Aminotransferase 17 U/L (16-61); Albumin 3.3 g/dL (3.4-5.0); Anion Gap 4 (5-15); Aspartate Aminotransferase 18 U/L (15-37); BUN/Creatinine Ratio 17.3; Blood Urea Nitrogen 19 mg/dL (7-18); Calcium 8.3 mg/dL (8.5-10.1); Carbon Dioxide 28 mmol/L (21-32); Chloride 112 mmol/L (98-107); GFR African American 82 mL/min; GFR Non-African American 68 mL/min; Glucose 92 mg/dL (74-106); Magnesium 1.9 mg/dL (1.6-2.6); Potassium 3.6 mmol/L (3.5-5.1); Sodium 144 mmol/L (136-145)
[2019-10-17 01:36] LABS: Alkaline Phosphatase 133 U/L (45-117); Bilirubin, Total 0.3 mg/dL (0.2-1.0); Total Protein 6.5 g/dL (6.4-8.2)
[2019-10-17 01:37] LABS: INR 1.54 (0.9-1.15); Partial Thromboplastin Time 46.6 sec (23.64-32.05)
[2019-10-17 01:46] LABS: Urine WBC None Seen /hpf (0 - 3)
[2019-10-17 01:59] LABS: Urine Bacteria NONE SEEN /hpf (None Seen); Urine Blood Negative /uL (Negative); Urine Specific Gravity 1.006 (1.001-1.035)
[2019-10-17] MEDS ORDERED: diphenhdrAMINE HCL 50 MG/1 ML VL IV ONE (02:30)
[2019-10-17] MEDS ORDERED: methylPREDNISolone SOD SUCC 125 MG/2 ML VL IV ONE (02:30)
[2019-10-17] MEDS ORDERED: FUROSEMIDE 20 MG/2 ML VIAL IV ONE (04:00)
[2019-10-17 05:00] VITALS: BP 151/68
== END 2019-10-17 05:58 | disposition home or self-care (01) ==
LOC: ER 23:53
DX: S16.1XXA Strain of muscle, fascia and tendon at neck level, initial encounter (principal); S22.010A Wedge compression fracture of first thoracic vertebra, initial encounter for closed fracture; M47.892 Other spondylosis, cervical region; I10 Essential (primary) hypertension; J44.9 Chronic obstructive pulmonary disease, unspecified; R78.5 Finding of other psychotropic drug in blood; F17.210 Nicotine dependence, cigarettes, uncomplicated; Z79.899 Other long term (current) drug therapy; X58.XXXA Exposure to other specified factors, initial encounter; Y93.89 Activity, other specified; Y99.8 Other external cause status; Y92.89 Other specified places as the place of occurrence of the external cause
CPT/HCPCS: 36415; 70490; 71045; 80053; 81001; 83735; 84484; 85025; 85610; 85730; 93005; 96374; 96375; 99284; J1200; J1940; J2930

== ENCOUNTER 2019-12-22 21:30 | Inpatient (IN) | payer BC ==
[~2019-12-22] VITALS: Ht 181.6 cm; Wt 48.3 kg
--- NOTE | 2019-12-22 23:30 | NUR ---
OPENING NOTE RECEIVED PATIENT FROM [facility]. PATIENT SHOWING NO SIGN OF DISTRESS, SHORTNESS OF BREATH, BUT PATIENT STATES PAIN IS 6/10 AND TOLERABLE. AWAITING ORDERS FROM HOSPITALIST AT THIS TIME. WILL ADMINISTER PAIN MEDICINE WHEN AVAILABLE. PATIENT EDUCATED ON PLAN OF CARE FOR THE NIGHT AND PATIENT VERBALIZED UNDERSTANDING. BED LOWERED, CALL LIGHT WITHIN REACH, AND PATIENT WILL BE ROUNDED ON EVERY HOUR AND NEEDED.
[2019-12-22 23:58] VITALS: BP 140/98
[2019-12-23] MEDS ORDERED: ACETAMINOPHEN 325 MG TAB PO PRN (00:30)
[2019-12-23] MEDS ORDERED: ONDANSETRON HCL 4 MG/2 ML VIAL IV PRN (00:30)
[2019-12-23] MEDS ORDERED: ALBUTEROL SULF 2.5 MG/0.5ML(0.5%) NEB SOLN NEB PRN (00:30)
[2019-12-23] MEDS ORDERED: NITROGLYCERIN 0.4 MG SL TAB SL PRN (00:30)
[2019-12-23] MEDS ORDERED: MORPHINE SULF INJ 2 MG/ML SYRINGE 1ML IV PRN (00:30)
--- NOTE | 2019-12-23 00:50 | NUR ---
ORDERS RECEIVED ORDERS WILL BE IMPLEMENTED AT THIS TIME. ORDERS FOR ALEJANDRO IN PLACE. PATIENT AT THIS TIME REFUSING ALEJANDRO. WILL ATTEMPT AT A LATER TIME. WILL CONTINUE TO MONITOR.
[2019-12-23 00:51] VITALS: BP 140/98
[2019-12-23 00:59] LABS: Basophils # (auto) 0 uL; Eosinophils # (auto) 0 uL; Eosinophils % (auto) 0.3 % (0.0-7.0); Hematocrit 27.8 % (41.0-53.0); Hemoglobin 8.5 g/dL (13.5-17.5); Lymphocytes # (auto) 0.9 uL; Mean Corpuscular Hemoglobin 22.4 pg (28.0-32.0); Mean Corpuscular Hgb Conc. 30.4 g/dL (32.0-36.0); Monocytes # (auto) 0.7 uL; Neutrophils # (auto) 6.2 uL
[2019-12-23 01:00] LABS: Basophils % (auto) 0.5 % (0.0-2.0); Lymphocytes % (auto) 11.8 % (10.0-50.0); Mean Corpuscular Volume 73.7 fL (80.0-100.0); Monocytes % (auto) 9.1 % (0.0-12.0); Neutrophils % (auto) 78.3 % (37.0-80.0); Nucleated Red Blood Cells % 0.1 %; Platelet Count (auto) 201 10^3/uL (140-450); Red Blood Cells 3.77 10^6/uL (4.5-5.90); Red Cell Distribution Width 18.6 % (11.8-14.3)
[2019-12-23 01:08] LABS: Urine Bacteria FEW /hpf (None Seen); Urine Blood Negative /uL (Negative); Urine Hyaline Cast FEW /lpf (0 - 2); Urine Specific Gravity 1.016 (1.001-1.035); Urine WBC 1 /hpf (0 - 3)
[2019-12-23 01:19] LABS: INR 1.11 (0.9-1.15); Partial Thromboplastin Time 34.9 sec (23.64-32.05)
[2019-12-23 01:26] LABS: Albumin 2.7 g/dL (3.4-5.0); BUN/Creatinine Ratio 19.8; Calcium 7.9 mg/dL (8.5-10.1); Potassium 3.7 mmol/L (3.5-5.1)
[2019-12-23] MEDS: HYDROcodone-ACET 5/325MG TAB PO PRN ×4 (01:27→22:46)
[2019-12-23 01:29] LABS: Bilirubin, Total 0.6 mg/dL (0.2-1.0)
--- NOTE | 2019-12-23 04:48 | NUR ---
PATIENT DENYING ALEJANDRO AT THIS TIME. ORDERS PLACED BUT PATIENT STATES THAT THEY DO NOT NEED IT. PATIENT ABLE TO VOID USING URINAL AT THIS TIME. WILL CONTINUE TO MONITOR AND WILL ENDORSE TO RAMSEY RN.
[2019-12-23 05:00] VITALS: BP 130/60
--- NOTE | 2019-12-23 07:40 | NUR ---
Opening Note Received report from warehouse shift supervisor RN. Patient is awake, alert and oriented x4. No signs or symptoms of distress noted at this time. Patient is on 3L NC, respirations even and unlabored. Patient denies pain at this time. Reviewed plan of care with patient, patient verbalized understanding. Bed in low and locked position, call light within reach. Bed alarm on for safety. Will continue to monitor Q 1 hour and PRN.
[2019-12-23 08:00] VITALS: BP 136/65
--- NOTE | 2019-12-23 09:00 | NUR ---
EKG completed EKG completed at bedside, given to SHERIN Zamudio and placed in patient chart.
[2019-12-23] MEDS: CARVEDILOL 12.5 MG TAB PO SCH ×2 (09:41→21:51)
[2019-12-23] MEDS: ENALAPRIL MALEATE 2.5 MG TAB PO SCH (09:42)
[2019-12-23] MEDS: FAMOTIDINE 20 MG TAB PO SCH ×2 (09:47→21:51)
--- NOTE | 2019-12-23 09:52 | NUR ---
WOUND PHOTOS PATIENT HAS RIGHT, POSTERIOR ARM SCABBED, SKIN TEAR PRESENT ON ADMISSION. WOUND PICTURE OBTAINED. Signed: 12/23/19 at 1019 by WILFREDO PRATHER SN <Co-Signature Required> Co-Signed: 12/23/19 at 1019 by RENETTA CRAIG RN RN
[2019-12-23] MEDS ORDERED: CARVEDILOL 12.5 MG TAB PO SCH (10:00)
[2019-12-23 12:00] VITALS: BP 116/52
--- NOTE | 2019-12-23 12:10 | NUR ---
Dr. Antonietta Lombardi at bedside Discussing plan of care with patient and this RN. Patient pending ortho consult. No new orders received. Will continue to monitor Q1 hour and PRN.
--- NOTE | 2019-12-23 13:15 | NUR ---
Respiratory note: PT ASSESSED FOR PRN MED NEB TX. HR 86, RR 18, SPO2 94% ON 2L NC. NO SIGNS OF ANY RESPIRATORY DISTRESS NOTED. ADVISED PT TO CALL IF TX IS NEEDED.
--- NOTE | 2019-12-23 16:32 | NUR ---
1800 Xarelto held Medication held at this time for possible procedure. Surgeon aware. Will continue to monitor Q1 hour and PRN.
[2019-12-23 17:00] VITALS: BP 106/57
[2019-12-23] MEDS: FUROSEMIDE 40 MG/4 ML VIAL IV SCH (17:22)
[2019-12-23] MEDS ORDERED: RIVAROXABAN 20 MG TAB PO SCH (18:00)
[2019-12-23] MEDS ORDERED: FUROSEMIDE 20 MG/2 ML VIAL IV SCH (18:00)
--- NOTE | 2019-12-23 18:53 | NUR ---
Respiratory note: ASSESSED PT FOR PRN MED NEB TX. PT IS CURRENTLY ON 3 L/M NC: HR 65, RR 18, SPO2 93%. PT SHOWS NO S/S OF SOB OR RESPIRATORY DISTRESS. MED NEB TX NOT INDICATED AT THIS TIME. PT AWARE TO HAVE RT PAGED IF SOB OCCURS. WILL CONTINUE TO MONITOR.
--- NOTE | 2019-12-23 19:10 | NUR ---
Closing Note Report given to date night caregiver RN. No signs or symptoms of distress noted at this time.
--- NOTE | 2019-12-23 20:00 | NUR ---
Opening Shift Note Assumed care of patient, awake and alert. No S/S of distress/SOB or pain. Instructed on POC and to call for assist PRN, will continue to monitor for changes Q1hr and PRN.
[2019-12-23] MEDS: PRAVASTATIN SODIUM 20 MG TAB PO SCH (21:51)
[2019-12-23 22:00] VITALS: BP 97/48
[2019-12-24 05:00] VITALS: BP 93/65
[2019-12-24] MEDS: FUROSEMIDE 40 MG/4 ML VIAL IV SCH ×2 (05:24→18:05)
[2019-12-24 06:14] LABS: Basophils # (auto) 0 uL; Eosinophils # (auto) 0.1 uL; Hemoglobin 7.3 g/dL (13.5-17.5); Lymphocytes # (auto) 0.8 uL; Monocytes # (auto) 0.7 uL; Neutrophils # (auto) 3.4 uL; Red Cell Distribution Width 18.9 % (11.8-14.3)
[2019-12-24 06:18] LABS: Basophils % (auto) 0.5 % (0.0-2.0); Eosinophils % (auto) 1.6 % (0.0-7.0); Hematocrit 23.3 % (41.0-53.0); Lymphocytes % (auto) 16.7 % (10.0-50.0); Mean Corpuscular Hgb Conc. 31.2 g/dL (32.0-36.0); Mean Corpuscular Volume 73.9 fL (80.0-100.0); Monocytes % (auto) 13.5 % (0.0-12.0); Neutrophils % (auto) 67.7 % (37.0-80.0); Nucleated Red Blood Cells % 0.1 %; Platelet Count (auto) 156 10^3/uL (140-450); Red Blood Cells 3.15 10^6/uL (4.5-5.90)
[2019-12-24 06:32] LABS: Calcium 7.6 mg/dL (8.5-10.1); Potassium 3.2 mmol/L (3.5-5.1)
[2019-12-24 06:34] LABS: BUN/Creatinine Ratio 19.8
--- NOTE | 2019-12-24 07:50 | NUR ---
Opening Shift Note Assumed care of patient, sleeping but easily awakened. No S/S of distress/SOB or pain. Instructed on POC and to callf or assist PRN. Patient went back to sleep after assessment. Will continue to monitor for changes Q1hr and PRN.
[2019-12-24 09:35] VITALS: BP 114/50
[2019-12-24] MEDS: FAMOTIDINE 20 MG TAB PO SCH ×2 (09:47→21:26)
[2019-12-24] MEDS: ENALAPRIL MALEATE 2.5 MG TAB PO SCH (09:47)
[2019-12-24] MEDS: CARVEDILOL 12.5 MG TAB PO SCH ×2 (09:52→22:00)
--- NOTE | 2019-12-24 10:28 | NUR ---
Respiratory note: ASSESSED PT FOR PRN BREATHING TX. PT IS AWAKE AND ALERT. NO S/S OF RESPIRATORY DISTRESS. PT IS CURRENTLY WEARING 3 L NASAL CANNULA. PT IS AWARE TO HAVE RT PAGED IF BREATHING TX IS NEEDED. WILL CONTINUE TO MONITOR PT.
[2019-12-24] MEDS ORDERED: POTASSIUM CHL 20 Meq TABLET PO ONE (11:15)
--- NOTE | 2019-12-24 11:30 | NUR ---
DR. Bennie LIVINGSTON WAS IN TO SEE PATIENT. MD NOTIFIED THAT PATIENT IS A [facility] PATIENT AND MD LEFT NEW ORDERS AFTER TALKING WITH PATIENT.
[2019-12-24 13:00] VITALS: BP 92/50
--- NOTE | 2019-12-24 14:36 | NUR ---
assessment re: Living situation Patient is a 84 year old male who is answering appropriately. Prior to admission patient lived at a room and board and was on hospice with [facility]. Patient has been admitted for fall at home that resulted in right hip fracture. Patients post discharge needs to be determined after surgery and prior to discharge. I informed patient he has a right to speak to a social psychologist regarding all care. I informed patient he has a right to participate in any and all discharge planning. Patient does not have a POA and advanced directive. I have offered patient information on POA and advanced directives. I informed the patient the advantages and benefits of having an Advanced Directive. Patient verbalized understanding and agreed to discharge plan. Addendum: 12/24/19 at 1456 by Ree NASH Amended: Links added.
[2019-12-24 16:45] VITALS: BP 116/57
--- NOTE | 2019-12-24 17:32 | NUR ---
Dr. Li was in and asked if patient had blood transfusion and I told MD that Dr. Bennie Lombardi was aware of the hgb and did not order transfusion and that patient is on hospice. MD left new orders.
--- NOTE | 2019-12-24 19:40 | NUR ---
Opening Shift Note Assumed care of patient, awake and alert. No S/S of distress/SOB or pain. Bed in lowest locked position, side rails up x2, call light within reach. Instructed on POC and to call for assist PRN, will continue to monitor for changes Q1hr and PRN.
[2019-12-24] MEDS: PRAVASTATIN SODIUM 20 MG TAB PO SCH (21:26)
[2019-12-24] MEDS: MORPHINE SULFATE 4 MG/ML SYR/VIAL IV PRN (21:27)
[2019-12-24 22:00] VITALS: BP 109/65
--- NOTE | 2019-12-24 23:00 | NUR ---
Patient requesting cigarettes, reports that he "has none" and asking staff to go to store to purchase some. Patient made aware of smoking policy at hospital and offered to obtain order for nicotine patch. Patient refusing at this time. No s/s of distress. Will continue to monitor.
[2019-12-25] VITALS (11 sets, daily range): BP systolic 111–139; BP diastolic 51–96
--- NOTE | 2019-12-25 01:00 | NUR ---
First unit of PRBC transfusing at this time. Vital signs within normal limits. No s/s of distress or reaction. Will continue to monitor. Addendum: 12/25/19 at 0647 by ROMEL LO RN RN ADDITION: Hemoglobin and Hematocrit lab ordered per hospital protocol.
--- NOTE | 2019-12-25 02:00 | NUR ---
IV removal and insertion IV DC'd accidentally by patient. Pressure dressing applied to site. IV access obtained by Radha SALOMON, via clean sterile technique by inserting 20 gauge catheter to patient's right forearm after one attempt. IV secured properly. No trauma to site. Patient tolerated well. Blood transfusion continues infusing, patient tolerating well. No s/s of distress. Will continue to monitor.
--- NOTE | 2019-12-25 04:00 | NUR ---
Transfusion of one unit packed red blood cells complete at this time. Patient tolerated well. No s/s of distress or reaction. Will continue to monitor.
[2019-12-25] MEDS: FUROSEMIDE 40 MG/4 ML VIAL IV SCH ×2 (06:10→18:00)
[2019-12-25 06:48] LABS: Hemoglobin 9.2 g/dL (13.5-17.5)
[2019-12-25 06:49] LABS: Hematocrit 29.6 % (41.0-53.0)
--- NOTE | 2019-12-25 07:24 | NUR ---
PT ASSESSED FOR PRN HHN TX. PT IS ON 3LNC, SPO2 97%, HR 68, RR 18. NO S.S OF RESPIRATORY DISTRESS. PT AWARE TO HAVE RT PAGE DIF TX INDICATED.
--- NOTE | 2019-12-25 07:30 | NUR ---
Opening Shift Note Assumed care of patient, awake and alert, oriented to self only. No S/S of distress/SOB or pain. Bed is locked and in lowest position and call light is within reach. Instructed on POC and to call for assist PRN, and patient verbalized understanding to the best of his ability. Will continue to monitor for changes Q1hr and PRN. Addendum: 12/26/19 at 0005 by ROMEL LO RN RN CORRECTION: Patient alert and oriented x 4 at time of original note. Addendum: 12/26/19 at 0012 by ROMEL LO RN RN CORRECTION: Please disregard addendum, wrong patient.
--- NOTE | 2019-12-25 07:30 | NUR ---
Closing Note Patient lying in bed, awake and alert. No s/s of distress. Bed in lowest locked position, side rails up x2, call light within reach, bed alarm on. Care endorsed to dayshift AIME. Addendum: 12/26/19 at 0015 by ROMEL LO RN RN ADDITION: Patient frequently turning in bed and attempting to stand up throughout shift. Bed alarm remained on and safety maintained throughout shift. Patient reoriented PRN during shift, easily reoriented. No s/s of distress noted.
[2019-12-25] MEDS: MORPHINE SULFATE 4 MG/ML SYR/VIAL IV PRN (07:48)
[2019-12-25] MEDS: FAMOTIDINE 20 MG TAB PO SCH ×2 (08:52→22:39)
[2019-12-25] MEDS: CARVEDILOL 12.5 MG TAB PO SCH ×2 (08:53→22:38)
[2019-12-25] MEDS: ENALAPRIL MALEATE 2.5 MG TAB PO SCH (08:54)
--- NOTE | 2019-12-25 09:00 | NUR ---
Patient HGB at 9.2 after 1 bag of PRBC infused; Dr. Bennie Lombardi, Hospitalist, ordered to hold second unit of PRBC at this time, and contact Dr. Li, Orthopedic Surgeon, to verify if he wants second unit infused.
--- NOTE | 2019-12-25 10:30 | NUR ---
Patient confused, and continually is trying to stand up and get out of bed. Bed alarm is on; paged Isabelle, charge nurse, and requested a sitter to remain at bedside for patient safety. Will continue to round every 10 minutes.
--- NOTE | 2019-12-25 14:45 | NUR ---
Dr. Li, Orthopedic Surgeon, at bedside; requesting SCD's to be placed on patient immediately. Bilateral SCD's placed on patients legs.
--- NOTE | 2019-12-25 15:00 | NUR ---
Patient transferred to room 291-B; safety advisor now at bedside for 24 hour monitoring and patient care.
--- NOTE | 2019-12-25 17:58 | NUR ---
Patient refusing to wear SCD's; provided patient education regarding SCD's, and will continue to reorient patient and educate patient on this matter. No distress noted at this time; will continue to monitor Q1.
--- NOTE | 2019-12-25 19:30 | NUR ---
Opening Shift Note Assumed care of patient, awake and alert. No S/S of distress/SOB or pain. Bed is locked and in lowest position and call light is within reach, bed alarm on, sitter at bedside. Instructed on POC and to call for assist PRN, and patient verbalized understanding. Will continue to monitor for changes Q1hr and PRN.
--- NOTE | 2019-12-25 19:38 | NUR ---
PT ASSESSED FOR PRN MED NEB TX. SPO2 100% ON 3L NC. PT WEARS 2L AT HOME. TITRATED FLOW TO 2L. PT DENIES ANY RESPIRATORY DISTRESS. NO TX INDICATED. PT IS AWARE TO HAVE RT PAGED IF TX NEEDED.
--- NOTE | 2019-12-25 20:00 | NUR ---
Patient refusing to wear SCD's. Patient educated regarding SCD's, continuing to refuse. Will continue to educate patient on this matter. No s/s of distress. will continue to monitor..
[2019-12-25] MEDS: PRAVASTATIN SODIUM 20 MG TAB PO SCH (22:39)
--- NOTE | 2019-12-25 23:55 | NUR ---
Patient transferred to room 220A with Susan SALOMON to ubigrate sitters. All personal belongings transferred with patient. night monitor box 59 returned to monitor technicians via bullet system, monitor technicians made aware. No s/s of distress on departure. SBAR report given to Susan SALOMON, all questions answered and care endorsed.
--- NOTE | 2019-12-26 | NUR ---
Received patient from Juliana SALOMON. Patient is resting in bed, no complaints of pain. Call light is within reach. Sitter is at bedside for safety.
--- NOTE | 2019-12-26 04:00 | NUR ---
Patient is refusing the SCDs. He is alert and oriented x4. This RN explained to the patient the importance of the SCDs, he verbalized understanding but stated they hurt and he did not want them on, their purpose was important but he could say no to them and he did not want them on.
[2019-12-26 05:00] VITALS: BP 131/68
--- NOTE | 2019-12-26 05:37 | NUR ---
CHG wipes and complete linen change done. Pillow placed under right hip for repositioning and pillow placed under heels to off load pressure. Patient tolerated well. Call light is within reach, sitter is at bedside for safety, will continue to monitor.
[2019-12-26] MEDS: FUROSEMIDE 40 MG/4 ML VIAL IV SCH ×2 (05:58→19:34)
[2019-12-26 06:30] LABS: Basophils # (auto) 0 uL; Eosinophils # (auto) 0.1 uL; Hemoglobin 9.1 g/dL (13.5-17.5); Lymphocytes # (auto) 0.8 uL; Monocytes # (auto) 0.5 uL; Nucleated Red Blood Cells % 0.1 %
[2019-12-26 06:32] LABS: Basophils % (auto) 0.3 % (0.0-2.0); Eosinophils % (auto) 1.4 % (0.0-7.0); Hematocrit 28.9 % (41.0-53.0); Lymphocytes % (auto) 17.7 % (10.0-50.0); Mean Corpuscular Hemoglobin 23.8 pg (28.0-32.0); Mean Corpuscular Hgb Conc. 31.4 g/dL (32.0-36.0); Monocytes % (auto) 10.7 % (0.0-12.0); Neutrophils % (auto) 69.9 % (37.0-80.0); Platelet Count (auto) 150 10^3/uL (140-450); White Blood Cell 4.3 10^3/uL (4.4-10.8)
[2019-12-26 06:37] LABS: INR 1.04 (0.9-1.15); Partial Thromboplastin Time 32.8 sec (23.64-32.05)
[2019-12-26 06:47] LABS: BUN/Creatinine Ratio 22.5; Calcium 8.2 mg/dL (8.5-10.1); Potassium 3.7 mmol/L (3.5-5.1)
--- NOTE | 2019-12-26 06:54 | NUR ---
Respiratory note: PT ASSESSED FOR PRN MED NEB TX, NO TX INDICATED AT THIS TIME. PT SLEEPING, EASILY AWAKES WITH NO DISTRESS NOTED. PT STATES HE DOES WEAR 2L OXYGEN AT HOME. SPO2 98% ON 2L N/C RR 14 HR 68. SITTER NOTED AT BEDSIDE. PT AND RN AWARE TO HAVE RT PAGED IF NEEDED.
--- NOTE | 2019-12-26 07:30 | NUR ---
Opening Shift Note Assumed care of patient, awake and alert. No S/S of distress/SOB or pain. INSTRUCTED on POC and to call for assist PRN, will continue to monitor for changes Q1hr and PRN. SITTER AT BEDSIDE.
[2019-12-26] MEDS ORDERED: ceFAZolin 1GM 2 GM in D5W 5% 100 ML IV ONE (08:30)
[2019-12-26 09:01] VITALS: BP 120/79
[2019-12-26] MEDS: FAMOTIDINE 20 MG TAB PO SCH ×2 (09:20→21:58)
--- NOTE | 2019-12-26 09:30 | NUR ---
DR VILLALTA CALLED TO SAY THAT SURGERY WILL NOT HAPPEN TODAY AND WILL POSSIBLY SCHEDULE FOR TOMORROW. DR. LIVINGSTON MADE AWARE OF THE PLAN.
[2019-12-26] MEDS: CARVEDILOL 12.5 MG TAB PO SCH ×2 (10:00→21:57)
[2019-12-26] MEDS: ENALAPRIL MALEATE 2.5 MG TAB PO SCH (10:00)
[2019-12-26 13:25] VITALS: BP 106/61
[2019-12-26] MEDS: HYDROcodone-ACET 5/325MG TAB PO PRN ×2 (13:56→23:01)
--- NOTE | 2019-12-26 16:31 | NUR ---
NUTRITION ASSESSMENT NOTES Please refer to link notes of nutrition screen form filed under the intervention section of the plan of care for further details. Est. Needs based on IBW (78 kg): 1950 kcal to 2350 kcal (25-30 kcal/kgIBW), 78 gms to 94 gms pro (1.0-1.2 gms/kgIBW). Will continue to monitor pertinent labs and reassess nutrient need prn Thank you. Addendum: 12/26/19 at [address] Amended: Links added.
[2019-12-26 17:27] VITALS: BP 119/59
--- NOTE | 2019-12-26 18:27 | NUR ---
PT NOTES Patient awake and alert. No S/S of distress/SOB or pain. SITTER AT BEDSIDE.
--- NOTE | 2019-12-26 19:40 | NUR ---
Opening Shift Note Assumed care of patient, awake and alert x4. No S/S of distress/SOB or pain. Call light is within reach, side rails up x2, bed is in lowest position. Oxygen is at 2L/min vi nasal cannula, sitter is at bedside for safety. Instructed on POC and to call for assist PRN, will continue to monitor for changes Q1hr and PRN.
[2019-12-26 20:18] VITALS: BP 111/57
[2019-12-26] MEDS: PRAVASTATIN SODIUM 20 MG TAB PO SCH (21:58)
[2019-12-27 04:22] VITALS: BP 113/45
[2019-12-27 05:20] LABS: Basophils # (auto) 0 uL; Eosinophils # (auto) 0.1 uL; Lymphocytes # (auto) 0.9 uL; Monocytes # (auto) 0.5 uL; Neutrophils # (auto) 2.7 uL
[2019-12-27 05:22] LABS: Basophils % (auto) 0.4 % (0.0-2.0); Eosinophils % (auto) 2.1 % (0.0-7.0); Hematocrit 28.6 % (41.0-53.0); Mean Corpuscular Hemoglobin 23.5 pg (28.0-32.0); Mean Corpuscular Hgb Conc. 31.5 g/dL (32.0-36.0); Mean Corpuscular Volume 74.4 fL (80.0-100.0); Monocytes % (auto) 11.2 % (0.0-12.0); Neutrophils % (auto) 64.3 % (37.0-80.0); Nucleated Red Blood Cells % 0.2 %; Platelet Count (auto) 157 10^3/uL (140-450); Red Blood Cells 3.84 10^6/uL (4.5-5.90); Red Cell Distribution Width 19.3 % (11.8-14.3); White Blood Cell 4.2 10^3/uL (4.4-10.8)
--- NOTE | 2019-12-27 05:30 | NUR ---
CHG wipes and complete linen change done. Pillow placed under heels to off load pressure, SCDs are in place. Patient tolerated well. Call light is within reach, sitter is at bedside for safety, will continue to monitor.
[2019-12-27] MEDS: FUROSEMIDE 40 MG/4 ML VIAL IV SCH ×2 (06:02→18:37)
--- NOTE | 2019-12-27 07:30 | NUR ---
OPENING SHIFT NOTE: Received report from NOC RNRenee. Assumed care of patient. Patient resting comfortably in bed, denies pain. Patient currently NPO for surgery today with Dr Li. Bed in lowest position, rails x2 up and call light within reach. Sitter at bedside for safety. Updated on plan of care. Will continue to monitor.
[2019-12-27 08:17] VITALS: BP 107/48
[2019-12-27] MEDS: HYDROcodone-ACET 5/325MG TAB PO PRN ×2 (09:01→20:04)
[2019-12-27] MEDS: ENALAPRIL MALEATE 2.5 MG TAB PO SCH (10:00)
[2019-12-27] MEDS: CARVEDILOL 12.5 MG TAB PO SCH ×2 (10:00→22:08)
[2019-12-27] MEDS: FAMOTIDINE 20 MG TAB PO SCH ×2 (10:12→22:09)
--- NOTE | 2019-12-27 10:50 | NUR ---
MD: DR Antonietta Lombardi at bedside. Orders received. Per , Dr Li moved surgery to Friday. Called pre-op and verified. Surgery reschedule for Friday12/28/2019 at 7am.
--- NOTE | 2019-12-27 12:40 | NUR ---
MD: Dr Li at bedside.
[2019-12-27 13:19] VITALS: BP 116/47
[2019-12-27 17:15] VITALS: BP 125/61
--- NOTE | 2019-12-27 19:00 | NUR ---
OPENING SHIFT NOTE: Assumed care of patient, awake, alert and oriented. Patient resting comfortably in bed, denies pain. Bed in lowest position, rails x2 up and call light within reach. Call light within reach. Sitter at bedside for safety. Updated on plan of care. Will continue to monitor.
[2019-12-27] MEDS: PRAVASTATIN SODIUM 20 MG TAB PO SCH (22:09)
[2019-12-28 05:46] LABS: Basophils # (auto) 0 uL; Eosinophils # (auto) 0.1 uL; Hemoglobin 9.6 g/dL (13.5-17.5); Lymphocytes # (auto) 0.8 uL; Lymphocytes % (auto) 19.4 % (10.0-50.0); Monocytes # (auto) 0.4 uL; Neutrophils # (auto) 2.7 uL; Nucleated Red Blood Cells % 0.1 %; Red Cell Distribution Width 19.6 % (11.8-14.3)
[2019-12-28 05:50] LABS: Basophils % (auto) 0.6 % (0.0-2.0); Eosinophils % (auto) 1.5 % (0.0-7.0); Hematocrit 30.2 % (41.0-53.0); Mean Corpuscular Hemoglobin 23.8 pg (28.0-32.0); Mean Corpuscular Hgb Conc. 31.8 g/dL (32.0-36.0); Mean Corpuscular Volume 74.8 fL (80.0-100.0); Monocytes % (auto) 10.2 % (0.0-12.0); Neutrophils % (auto) 68.3 % (37.0-80.0); Platelet Count (auto) 186 10^3/uL (140-450); Red Blood Cells 4.04 10^6/uL (4.5-5.90)
[2019-12-28] MEDS: FUROSEMIDE 40 MG/4 ML VIAL IV SCH ×2 (06:00→18:00)
--- NOTE | 2019-12-28 06:55 | NUR ---
TP PRE OP REQUESTED BY SHOEMAKING CUTTER AND STAFF. PHONE UPDATE/REPORT GIVEN BY PHONE TO CARLTON IN PREOP. MADE AWARE LASIX HELD.
--- NOTE | 2019-12-28 08:08 | NUR ---
PRE OP NOTIFIES THAT ANESTHESIOLOGIST NOT COMFORTABLE WITH PT SIGNING ANESTHESIA CONSENT DUE TO MENTAL STATUS AND PT TO HAVE HEAD CT BEFORE RETURNING TO HIS ROOM. ANTICIPATING HOSPITALIST TO CO-SIGN CONSENT FOR FX REPAIR.
[2019-12-28 09:00] VITALS: BP 134/61
[2019-12-28 09:03] LABS: BUN/Creatinine Ratio 21.1; Calcium 8.2 mg/dL (8.5-10.1); Potassium 3.3 mmol/L (3.5-5.1)
[2019-12-28] MEDS: MORPHINE SULF INJ 2 MG/ML SYRINGE 1ML IV PRN ×2 (09:17→21:33)
[2019-12-28] MEDS: FAMOTIDINE 20 MG TAB PO SCH ×2 (10:00→22:00)
[2019-12-28] MEDS: CARVEDILOL 12.5 MG TAB PO SCH ×2 (10:00→22:00)
[2019-12-28] MEDS: ENALAPRIL MALEATE 2.5 MG TAB PO SCH (10:00)
--- NOTE | 2019-12-28 10:00 | NUR ---
WOUND CARE NOTE: Wound care consult received from nursing for newly identified wound to patient's back. Patient is a 84 yo male admitted for right hip fracture. Patient with a history of HTN, HLD, CHF, COPD, A-fib and on home O2. Patient was seen and assessed on 12/27/2019 upon initial identification of the wound. Patient is alert and oriented. Denies pain. Last Branden score is 15. Patient with a small open wound to the left side of his mid spine measuring 1.5x.15cm. Surrounding tissue is red, and slow to markos. No other open wounds noted. Patient is schedule of right hip hemiarthroplasty with Dr Li today, 12/28/19. RECOMMENDAIONS: Turn q2hrs; Dietary consult; Specialty Bed; Nursing to cleanse back wound with NS/wound cleanser, pat dry, apply THERAHONEY GEL, cover with OPTIFOAM GENTLE, change every three days and PRN soiling; wound care team to continue to follow. Addendum: 12/28/19 at 1351 by CHEL VICTORIA RN Amended: Links added.
[2019-12-28] MEDS ORDERED: POTASSIUM CHL 20MEQ/100ML 100 ML IV ONE ×3 (10:15→11:32)
--- NOTE | 2019-12-28 10:33 | NUR ---
DR. LIVINGSTON COSIGNS SURGICAL CONSENT. PREOP REQUESTS PT AGAIN. TAKEN TO PRE OP. PLEASANTLY COOPERATIVE. EXPRESSES UNDERSTANDING OF FIXING HIS BROKEN LEG AND NEEDING TO WORK AT WALKING AGAIN.
[2019-12-28] MEDS ORDERED: ceFAZolin 1GM/50ML 50 ML IV ONE ×2 (10:50→11:02)
[2019-12-28] MEDS ORDERED: TETRACAINE 1% INJ 2 ML VIAL IJ ONE ×4 (10:53→11:51)
[2019-12-28] MEDS ORDERED: MIDAZOLAM HCL 1MG/1ML-2 ML VIAL ONE ×2 (11:01→11:21)
[2019-12-28] MEDS ORDERED: STERILE WATER 20 ML ONE (11:02)
[2019-12-28] MEDS ORDERED: ePHEDrine SULFATE 50 MG/ML AMP ONE (11:02)
[2019-12-28] MEDS ORDERED: PHENYLEPHRINE HCL 10 MG/ML VL ONE (11:02)
[2019-12-28] MEDS ORDERED: METOCLOPRAMIDE HCL 5MG/ml INJ 2ml VIAL ONE (11:19)
[2019-12-28] MEDS ORDERED: diphenhdrAMINE HCL 50 MG/1 ML VL ONE (11:20)
[2019-12-28] MEDS ORDERED: LIDOCAINE HCL 2% TOP JELLY 5ML TOP ONE (11:24)
[2019-12-28] MEDS ORDERED: LIDOCAINE 1% (LOCAL ANESTH.) PF 5ml SDV ONE (11:25)
[2019-12-28] MEDS ORDERED: PROPOFOL 10 MG/ML 20 ML IV ONE (11:26)
[2019-12-28] MEDS ORDERED: NALOXONE HCL 0.4 MG/ML VIAL IV PRN (11:45)
[2019-12-28] MEDS ORDERED: HYDROmorphone HCL 2 MG/ML VL IV PRN (11:45)
[2019-12-28] MEDS ORDERED: ONDANSETRON HCL 4 MG/2 ML VIAL IV PRN (11:45)
[2019-12-28] MEDS ORDERED: ePHEDrine SULFATE 50 MG/ML AMP IV PRN (11:45)
[2019-12-28 13:00] VITALS: BP 84/56
[2019-12-28] MEDS: ceFAZolin 1GM/50ML 50 ML IV SCH ×2 (14:00→22:30)
[2019-12-28 14:45] VITALS: BP 138/76
--- NOTE | 2019-12-28 14:50 | NUR ---
SPECIALTY BED DELIVERED AND BROUGHT TO RECOVERY. PT TRANSFERRED ONTO AIR BED. RECEIVED BEDSIDE REPORT FROM LINEN ROOM ATTENDANT. PT EASY TO AROUSE AND RETURNS TO SLEEPING. TRANSFERRED ACLS WITH LINEN ROOM ATTENDANT TO ROOM 219A. BED ALARM ON. TELE MONITOR IN PLACE READS SINUS SARAVANAN 50'S
--- NOTE | 2019-12-28 16:50 | NUR ---
CONFUSED. PULLS ON ALEJANDRO. REMOVES TELE WIRES. REMOVES SURGICAL DRESSING. RIGHT HAND BLOODY. SURGICAL WOUND ASSESSED. BOARDERS WELL APPROXIMATED, SONDRA INTACT. COVERED WITH ABDOMINAL PAD SECURED WITH TAPE. ALEJANDRO SECURED WITH LEG ANCHOR. IV SITE INTACT AND REINFORCED WITH TAPE. DENIES PAIN WHEN ASKED. STATES FEELS TIRED. IRRITABLE C/O NEED TO VOID. NOT UNDERSTANDING ALEJANDRO DRAINING URINE. SITTER PROVIDED. MITTENS APPLIED AID PROVIDES DIRECT OBSERVATION. LINENS CHANGED. SKIN CLEANED. LIGHTS DIMMED.
[2019-12-28 20:20] VITALS: BP 104/61
--- NOTE | 2019-12-28 20:20 | NUR ---
Opening Shift Note Assumed care of patient, awake and alert. No S/S of distress/SOB or pain. Patient is on 2.5 liters of oxygen via nasal cannula. Respirations even and unlabored. Patient's Rock is below level of bladder and is patent and draining dark jose antonio cloudy urine. Sitter at bedside. Mittens on patient. Instructed on POC and to call for assist PRN, will continue to monitor for changes Q1hr and PRN. Addendum: 12/29/19 at 0701 by Fabby Bustillo RN PATIENT REFUSING NEW IV PLACEMENT.
[2019-12-28] MEDS: PRAVASTATIN SODIUM 20 MG TAB PO SCH (22:00)
--- NOTE | 2019-12-28 23:50 | NUR ---
PATIENT'S WOUND ON BACK CLEANSED PER MD ORDER WITH WOUND CLEANSER AND THERAHONEY GEL APPLIED. OPTIFOAM APPLIED AND IS CLEAN, DRY, AND INTACT.
--- NOTE | 2019-12-29 00:08 | NUR ---
HOSPITALIST PAGED REGARDING PATIENT BEING AGITATED AND NEEDING SEDATIVE. PATIENT ATTEMPTED TO HIT NEIL RIVERA AND ATTEMPTED TO HIT AI RN WITH CLOSED FIST. AWAITING CALLBACK AT THIS TIME.
--- NOTE | 2019-12-29 00:55 | NUR ---
SHERIN COX CALLED BACK REGARDING PATIENT BEING AGITATED AND COMBATIVE. NEW ORDER RECEIVED.
[2019-12-29] MEDS: TEMAZEPAM 15 MG CAP PO PRN (01:25)
--- NOTE | 2019-12-29 02:07 | NUR ---
HOSPITALIST PAGEBeatriz REGARDING PATIENT'S URINE BEING DARK JOHNY AND CLOUDY. Addendum: 12/29/19 at 0427 by Fabby Bustillo RN AWAITING CALLBACK AT THIS TIME.
--- NOTE | 2019-12-29 02:37 | NUR ---
SHERIN COX CALLED BACK REGARDING PATIENT'S URINE BEING DARK JOHNY AND CLOUDY. NEW ORDER RECEIVED AT THIS TIME.
--- NOTE | 2019-12-29 03:10 | NUR ---
URINE SENT FOR URINE CULTURE.
[2019-12-29] MEDS: MORPHINE SULF INJ 2 MG/ML SYRINGE 1ML IV PRN (04:20)
[2019-12-29] MEDS: FUROSEMIDE 40 MG/4 ML VIAL IV SCH ×2 (06:08→18:08)
[2019-12-29] MEDS: ceFAZolin 1GM/50ML 50 ML IV SCH ×2 (06:08→15:00)
--- NOTE | 2019-12-29 06:08 | NUR ---
ALEJANDRO CARE DONE WITH ALEJANDRO WIPES. PATIENT WAS RESISTIVE TO CARE.
[2019-12-29 06:16] LABS: Hematocrit 26.7 % (41.0-53.0); Hemoglobin 8.6 g/dL (13.5-17.5)
--- NOTE | 2019-12-29 07:00 | NUR ---
CLOSING NOTE No S/S of distress/SOB or pain. Patient is on 2.5 liters of oxygen via nasal cannula. Respirations even and unlabored. Patient's Rock is below level of bladder and is patent and draining dark jose antonio cloudy urine. Sitter at bedside. Mittens on patient. Dressing to right hip is dry and intact. Optifoam to back is clean, dry, and intact.
--- NOTE | 2019-12-29 07:30 | NUR ---
Opening Shift Note Assumed care of patient, awake and alert TO SELF. PT REORIENTED No S/S of distress/SOB or pain. Instructed on POC and to call for assist PRN, will continue to monitor for changes Q1hr and PRN. SITTER AT BEDSIDE.
[2019-12-29 08:55] VITALS: BP 116/63
[2019-12-29] MEDS: HYDROcodone-ACET 5/325MG TAB PO PRN (09:15)
[2019-12-29] MEDS: FAMOTIDINE 20 MG TAB PO SCH ×2 (09:22→22:22)
[2019-12-29] MEDS: ENALAPRIL MALEATE 2.5 MG TAB PO SCH (09:22)
[2019-12-29] MEDS: CARVEDILOL 12.5 MG TAB PO SCH ×2 (09:23→22:23)
[2019-12-29] MEDS ORDERED: ENOXAPARIN SOD 40 MG/0.4 ML SYRINGE SC SCH (10:00)
[2019-12-29 13:00] VITALS: BP 124/88
--- NOTE | 2019-12-29 13:13 | NUR ---
NUTRITION FOLLOWUP/CONSULT NOTES Pt wt is 71.5 kg today Pt was awake with sitter at bedside when rounded this morning. Pt with no distress or complaints. Pt appetite is good aeb 75% PO intake per RN doc. Educated pt on diet, wounds and importance of nutrition for strength and healing. Pt was receptive to information. Please note nutrition recommendations below. Will monitor and follow up prn. Est. Needs based on IBW (78 kg): 1950 kcal to 2350 kcal (25-30 kcal/kgIBW), 78 gms to 94 gms pro (1.0-1.2 gms/kgIBW). Will continue to monitor pertinent labs and reassess nutrient need prn LABS: BUN 27 H, Pot 3.3 L, Cl 95 L Ca 8.2 L; Tpro 6.0 L, Alb 2.7 L GI: Last BM on 12/26/19 per RN doc BS: 14 moderate risk, pressure ulcer per RN doc. Please refer to wound assessment report for full details. PES: 1.) Altered nutrition related lab values RT acute/chronic medical condition AEB elev. BUN, hypocalcemia and mod hypoalbuminemia 2.) Increased nutrient needs RT current/chronic medical/nutritional status AEB 78% IBW, BMI 16.2 kg/m2, decreased muscle mass, hx of wt loss, wound healing, mild hypoalbuminemia. Comments Will continue to monitor PO intake/NPO status, pertinent labs, skin status and weight trends. F/u in 3 to 5 days. Additional Recommendation: 1.) Resume oral diet (Cardiac: 2 gms Na, Low Chol, Low Fat diet with Ensure Enlive 1 carton TID) when medically appropriate. 2.) If Albumin continues trending down with improved renal labs, consider Prostat 1 pkt BID. 3.) Consider close supervision and feeding assistance prn during meals. 4.) Refer to RD for further nutrition educ. and weight monitoring upon discharge. 5.) Continue current plan of care.
--- NOTE | 2019-12-29 16:20 | NUR ---
PT RESTING. EYES CLOSED. SITTER AT BEDSIDE.
--- NOTE | 2019-12-29 16:21 | NUR ---
DR VILLALTA CAME IN TODAY AND TALKED TO PT. PT WAS SITTING IN A CHAIR. PER DR VILLALTA, CHANGE DRESSING WITH 4X4 AND TAPE.
--- NOTE | 2019-12-29 16:59 | NUR ---
PT'S NIECE, RICKY, CALLED TO GET AN UPDATE RE: PT'S STATUS. THIS WAS VERIFIED WITH PT WHO ALERT AND ORIENTED X 3-4 AT THIS TIME. PT WAS ABLE TO VERIFY RICKY HIS NIECE AND STATED THAT IT'S OK TO TALK TO HER AND GIVE HER AN UPDATE ON HIS STATUS.
[2019-12-29 17:00] VITALS: BP 123/58
--- NOTE | 2019-12-29 17:00 | NUR ---
DRESSING CHANGE PERFORMED ON SURGICAL SITE. STAPLED WOUND WELL-APPROXIMATED. VERY MINIMAL DRAINAGE WAS NOTED. PT TOLERATED WELL.
--- NOTE | 2019-12-29 19:17 | NUR ---
CLOSING NOTES Patient awake and alert. No S/S of distress/SOB or pain. REPORT GIVEN TO NOC RN. SITTER AT BEDSIDE.
[2019-12-29 20:10] VITALS: BP 129/60
--- NOTE | 2019-12-29 20:10 | NUR ---
Opening Shift Note Assumed care of patient, awake and only oriented to self and place. No S/S of distress/SOB or pain. Patient is on 2.5 liters of oxygen via nasal cannula. Respirations even and unlabored. Patient's Rock is below level of bladder and is patent and draining pale, clear urine. Sitter at bedside. Mittens on patient. Instructed on POC and to call for assist PRN, will continue to monitor for changes Q1hr and PRN.
--- NOTE | 2019-12-29 20:20 | NUR ---
PATIENT REFUSING SCD PLACEMENT PATIENT EDUCATED ON PURPOSE OF SCD PLACEMENT. EDUCATION REINFORCEMENT NEEDED. PATIENT CONTINUES TO REFUSE SCD PLACEMENT.
--- NOTE | 2019-12-29 20:40 | NUR ---
PATIENT'S WOUND ON BACK CLEANSED PER MD ORDER WITH WOUND CLEANSER AND THERAHONEY GEL APPLIED. OPTIFOAM APPLIED AND IS CLEAN, DRY, AND INTACT.
[2019-12-29 22:00] VITALS: BP 129/60
[2019-12-29] MEDS: PRAVASTATIN SODIUM 20 MG TAB PO SCH (22:22)
--- NOTE | 2019-12-30 00:33 | NUR ---
PATIENT REMOVED DRESSING TO RIGHT HIP. SURGICAL INCISION SITE APPEARS WELL-APPROXIMATED WITH ABSENCE OF DRAINAGE AND ABSENCE OF ERYTHEMA. NO S/S OF INFECTION NOTED. SURGICAL INCISION CLEANSED WITH NORMAL SALINE 0.9% AND PAT DRY WITH 4X4 GAUZE. INCISION SITE COVERED WITH 4X4 GAUZE AND SECURED WITH MICROPORE TAPE.
[2019-12-30] MEDS: TEMAZEPAM 15 MG CAP PO PRN (00:54)
[2019-12-30 05:00] VITALS: BP 110/57
[2019-12-30 06:14] LABS: Hematocrit 25.9 % (41.0-53.0); Hemoglobin 8.2 g/dL (13.5-17.5)
[2019-12-30] MEDS: FUROSEMIDE 40 MG/4 ML VIAL IV SCH ×2 (06:16→18:20)
--- NOTE | 2019-12-30 06:30 | NUR ---
ALEJANDRO CARE DONE WITH ALEJANDRO CARE WIPES.
--- NOTE | 2019-12-30 07:00 | NUR ---
CLOSING NOTE No S/S of distress/SOB or pain. Patient is on 2.5 liters of oxygen via nasal cannula. Respirations even and unlabored. Patient's Rock is below level of bladder and is patent and draining pale yellow urine with sediment. Sitter at bedside. Mittens on patient. Dressing to right hip is dry and intact. Optifoam to back is clean, dry, and intact.
--- NOTE | 2019-12-30 07:30 | NUR ---
Opening Shift Note Assumed care of patient, awake and alert. No S/S of distress/SOB or pain. Bed in lowest and locked position with side rails up x2 and call light within reach. Instructed on POC and to call for assist PRN, will continue to monitor for changes Q1hr and PRN.
[2019-12-30 09:00] VITALS: BP 94/35
[2019-12-30] MEDS: ENALAPRIL MALEATE 2.5 MG TAB PO SCH (10:00)
[2019-12-30] MEDS: CARVEDILOL 12.5 MG TAB PO SCH ×2 (10:00→21:46)
[2019-12-30] MEDS: FAMOTIDINE 20 MG TAB PO SCH ×2 (11:37→21:45)
--- NOTE | 2019-12-30 11:55 | NUR ---
re-assessment Per consult SNF placement. Patient is refusing SNF. Patient wants to return home with home health for PT. Patient lives with his friend and caregiver Lux informed me he will care for patient on discharge. Dr Lombardi informed. Addendum: 12/31/19 at 1658 by Ree Jacinto Amended: Links added.
[2019-12-30 13:00] VITALS: BP 99/51
[2019-12-30 17:31] VITALS: BP 107/61
[2019-12-30] MEDS: RIVAROXABAN 20 MG TAB PO SCH (18:19)
[2019-12-30 21:34] VITALS: BP 127/74
[2019-12-30] MEDS: PRAVASTATIN SODIUM 20 MG TAB PO SCH (21:45)
[2019-12-31] VITALS (10 sets, daily range): BP systolic 100–137; BP diastolic 44–71
[2019-12-31] MEDS: TEMAZEPAM 15 MG CAP PO PRN (00:36)
[2019-12-31] MEDS: FUROSEMIDE 40 MG/4 ML VIAL IV SCH ×2 (05:25→18:00)
[2019-12-31 05:52] LABS: Hematocrit 24.5 % (41.0-53.0); Hemoglobin 7.8 g/dL (13.5-17.5)
--- NOTE | 2019-12-31 06:00 | NUR ---
IV insertion IV access obtained, via clean sterile technique by inserting 22 gauge catheter at left forearm after 1 attempt. IV secured properly. No trauma to site. Patient tolerated procedure well.
[2019-12-31] MEDS: CARVEDILOL 12.5 MG TAB PO SCH ×3 (10:00→22:27)
[2019-12-31] MEDS: ENALAPRIL MALEATE 2.5 MG TAB PO SCH (10:00)
--- NOTE | 2019-12-31 11:00 | NUR ---
SPOKE TO DR. LIVINGSTON. RN NOTIFIED MD OF PTS HGB. MD AWARE. NEW ORDERS RECEIVED, READ BACK AND VERIFIED. SEE EMR FOR ORDERS.
[2019-12-31] MEDS: FAMOTIDINE 20 MG TAB PO SCH ×2 (12:21→21:30)
[2019-12-31] MEDS: HYDROcodone-ACET 5/325MG TAB PO PRN (12:21)
--- NOTE | 2019-12-31 13:00 | NUR ---
RECEIVED POA DOCUMENTATION AND PLACED IN HARD CHART.
--- NOTE | 2019-12-31 16:30 | NUR ---
D/C Planning Per consult for home health for physical therapy. Information and choice letter was given to patient at bedside. Patient did not have a preference. Informed patient order will be faxed to [facility] since he was previously under [facility] and will transition back onto hospice. Patient verbalize understanding d/c plan. Faxed medical records to [facility] Fax:). Placed followed up called to [facility], spoke to Anderson. Per Anderson patient has been accepted and service to start within 24-48hrs upon d/c day.
--- NOTE | 2019-12-31 18:00 | NUR ---
IV insertion IV access obtained, via clean sterile technique by inserting 18 gauge catheter at RIGHT FA after 1 attempt(s). IV secured properly. No trauma to site. Patient tolerated well.
--- NOTE | 2019-12-31 19:05 | NUR ---
REPORT GIVEN TO SHONA RNKIMBER. RN NOTIFIED OF THE PATIENTS BLOOD TRANSFUSION.
[2019-12-31] MEDS: RIVAROXABAN 20 MG TAB PO SCH (19:23)
--- NOTE | 2019-12-31 20:00 | NUR ---
Opening Shift Note Assumed care of patient, awake and alert. No S/S of distress/SOB or pain. Instructed on POC and to call for assist PRN, will continue to monitor for changes Q1hr and PRN.Right hip dressing dry and intact.
[2019-12-31] MEDS: PRAVASTATIN SODIUM 20 MG TAB PO SCH (21:30)
--- NOTE | 2019-12-31 21:30 | NUR ---
One unit of pack red blood cell blood transfusion done without transfusion reaction noted.
[2020-01-01 05:00] VITALS: BP 123/51
[2020-01-01] MEDS: FUROSEMIDE 40 MG/4 ML VIAL IV SCH (06:19)
--- NOTE | 2020-01-01 07:25 | NUR ---
Report given to Michael Espinal, patient is resting no distress.
--- NOTE | 2020-01-01 07:30 | NUR ---
Opening Shift Note Assumed care of patient, awake and alert. No S/S of distress/SOB or pain. Instructed on POC and to call for assist PRN, will continue to monitor for changes Q1hr and PRN. Patient is forgetful. Denies pain at this time.
--- NOTE | 2020-01-01 08:56 | NUR ---
OOB with PT.
--- NOTE | 2020-01-01 09:50 | NUR ---
Dr. Bennie Lombardi informed that we are not able to contact patient's room mate as phone number is not valid. Patient states the phone bill has not been paid. Patient does not have keys to get into his house. Dr. Lombardi states the patient is discharged and the House Sup is to be contacted to get patient a taxi voucher. Dr. Lombardi informed the patient can't be discharged if no one is at home to help him. ad operations intern, Isabelle, informed.
[2020-01-01] MEDS: FAMOTIDINE 20 MG TAB PO SCH (10:03)
[2020-01-01] MEDS: ENALAPRIL MALEATE 2.5 MG TAB PO SCH (10:03)
[2020-01-01] MEDS: CARVEDILOL 12.5 MG TAB PO SCH (10:06)
--- NOTE | 2020-01-01 10:36 | NUR ---
Pt ambulated using FWW for stability using 3L of O2 and complete 40ft w/ Billy Addendum: 01/01/20 at 1041 by Eboni Santillan PT Amended: Links added.
[2020-01-01 12:45] VITALS: BP 117/55
--- NOTE | 2020-01-01 13:46 | NUR ---
Discharge photos taken of back and sacrum. IV right forearm removed with tip intact. Telemetry box removed and returned to [place] office. Rock catheter removed. Patient given urinal. Saline lock to left forearm remains until patient has a ride home.
[2020-01-01 14:32] LABS: Hemoglobin 9.1 g/dL (13.5-17.5)
--- NOTE | 2020-01-01 14:48 | NUR ---
Discharge instructions given as ordered. Encourage to follow up with PMD as instructed. All questions and concerns addressed. Patient verbalized understanding. IV removed with catheter intact, pressure dressing applied. Telemetry unit returned to ICU. Patient taken to vehicle via wheelchair with all personal belongings, accompanied by staff and family member. No distress noted at time of departure.
--- NOTE | 2020-01-01 14:54 | NUR ---
[facility] This nurse contacted [facility] and let them know that patient has been discharged and they can resume services.
== END 2020-01-01 14:40 | disposition home health service (06) | DRG 469 ==
LOC: TELE-WESTW 23:15 → TELE-CENTR 12-25 23:14
PROVIDERS: ADMIT Nurse Practitioner; ATTEND Family Medicine
PROC: 30233N1 Transfusion of Nonautologous Red Blood Cells into Peripheral Vein, Percutaneous Approach (ICD-10-PCS; principal; 2019-12-25)
PROC: 0SRR0JZ Replacement of Right Hip Joint, Femoral Surface with Synthetic Substitute, Open Approach (ICD-10-PCS; 2019-12-28)
PROC: 0MBL0ZZ Excision of Right Hip Bursa and Ligament, Open Approach (ICD-10-PCS; 2019-12-28)
DX: S72.001A Fracture of unspecified part of neck of right femur, initial encounter for closed fracture (principal); I50.33 Acute on chronic diastolic (congestive) heart failure; J44.1 Chronic obstructive pulmonary disease with (acute) exacerbation; E44.0 Moderate protein-calorie malnutrition; Z68.1 Body mass index [BMI] 19.9 or less, adult; W18.30XA Fall on same level, unspecified, initial encounter; E78.5 Hyperlipidemia, unspecified; I27.20 Pulmonary hypertension, unspecified; I48.91 Unspecified atrial fibrillation; D64.9 Anemia, unspecified; E03.9 Hypothyroidism, unspecified; J44.9 Chronic obstructive pulmonary disease, unspecified; I11.0 Hypertensive heart disease with heart failure; M70.60 Trochanteric bursitis, unspecified hip; F17.200 Nicotine dependence, unspecified, uncomplicated; Z99.81 Dependence on supplemental oxygen; Z82.3 Family history of stroke; Z82.49 Family history of ischemic heart disease and other diseases of the circulatory system; Z86.73 Personal history of transient ischemic attack (TIA), and cerebral infarction without residual deficits; Y93.89 Activity, other specified; Y92.89 Other specified places as the place of occurrence of the external cause; Y99.8 Other external cause status; Z85.118 Personal history of other malignant neoplasm of bronchus and lung
CPT/HCPCS: 36415; 70450; 71045; 73501; 73502; 80048; 80053; 81001; 83735; 83880; 84443; 84484; 85014; 85018; 85025; 85610; 85730; 86850; 86900; 86901; 86920; 87081; 87086; 97116; 97163; 97530; C1776; G0378; J0690; J2250; J2704; J3480; J7060

== ENCOUNTER 2020-01-03 19:29 | Inpatient (IN) | payer BC ==
[~2020-01-03] VITALS: Ht 180.3 cm; Wt 43.3 kg
[~2020-01-03 19:29] MED LIST changes: -ALBUAER3 IN; -ENAL2.5T PO; -FLUT110A INH
[2020-01-03 21:01] LABS: Basophils # (auto) 0 uL; Eosinophils # (auto) 0.1 uL; Monocytes # (auto) 0.7 uL
[2020-01-03 21:02] LABS: Basophils % (auto) 0.5 % (0.0-2.0); Eosinophils % (auto) 1.5 % (0.0-7.0); Hemoglobin 9.3 g/dL (13.5-17.5); Lymphocytes # (auto) 0.9 uL; Mean Corpuscular Hemoglobin 24.8 pg (28.0-32.0); Mean Corpuscular Volume 77.4 fL (80.0-100.0); Monocytes % (auto) 9.9 % (0.0-12.0); Neutrophils # (auto) 5.5 uL; Neutrophils % (auto) 76.1 % (37.0-80.0); Platelet Count (auto) 329 10^3/uL (140-450); Red Blood Cells 3.74 10^6/uL (4.5-5.90); White Blood Cell 7.2 10^3/uL (4.4-10.8)
[2020-01-03 21:10] LABS: Red Cell Distribution Width 20.6 % (11.8-14.3)
[2020-01-03 21:13] LABS: Albumin 2.7 g/dL (3.4-5.0); Calcium 8.1 mg/dL (8.5-10.1)
[2020-01-03] MEDS ORDERED: SODIUM CHLORIDE 0.9% 1,000 ML IV ONE (21:15)
[2020-01-03] MEDS ORDERED: DIGOXIN (250MCG/ML) 2 ML AMPULE IV ONE (21:15)
[2020-01-03 21:17] LABS: INR 1.16 (0.9-1.15); Partial Thromboplastin Time 38.2 sec (23.64-32.05)
[2020-01-03 21:19] LABS: Bilirubin, Total 0.6 mg/dL (0.2-1.0); Total Protein 6.2 g/dL (6.4-8.2)
[2020-01-03] MEDS ORDERED: FUROSEMIDE 20 MG/2 ML VIAL IV ONE ×2 (21:45)
[2020-01-03] MEDS ORDERED: MORPHINE SULF INJ 2 MG/ML SYRINGE 1ML IV PRN (22:30)
[2020-01-03] MEDS ORDERED: AMIODARONE HCL 150 MG in D5W 5% 100 ML IV ONE (22:30)
[2020-01-03] MEDS ORDERED: DOCUSATE SOD 100 MG CAP PO PRN (22:30)
[2020-01-03] MEDS ORDERED: ONDANSETRON HCL 4 MG/2 ML VIAL IV PRN (22:30)
[2020-01-03] MEDS ORDERED: ALBUTEROL SULF 2.5 MG/0.5ML(0.5%) NEB SOLN NEB PRN (22:30)
[2020-01-03] MEDS ORDERED: NITROGLYCERIN 0.4 MG SL TAB SL PRN (22:30)
[2020-01-03] MEDS ORDERED: AMIODARONE HCL 900 MG in DEXTROSE 500 ML IV SCH ×2 (22:38→23:56)
[2020-01-03 22:45] LABS: Urine Bacteria NONE SEEN /hpf (None Seen); Urine Blood Negative /uL (Negative); Urine Hyaline Cast FEW /lpf (0 - 2); Urine Specific Gravity 1.013 (1.001-1.035); Urine WBC 1 /hpf (0 - 3)
[2020-01-03] MEDS ORDERED: DILTIAZEM HCL 25 MG/5 ML VIAL IV ONE ×2 (22:45→23:15)
[2020-01-03] MEDS ORDERED: AMIODARONE HCL (50 MG/ ML) 3 ML VIAL IV ONE (23:57)
[2020-01-03] MEDS ORDERED: AMIODARONE HCL 900 MG IV ONE (23:57)
[2020-01-04] MEDS ORDERED: AMIODARONE HCL 150 MG in D5W 5% 100 ML IV ONE ×2
[2020-01-04 03:26] VITALS: BP 104/68
[2020-01-04] MEDS ORDERED: AMIODARONE HCL 900 MG in DEXTROSE 500 ML IV SCH ×2 (04:38→05:56)
[2020-01-04 06:50] LABS: Basophils # (auto) 0 uL; Hemoglobin 8.8 g/dL (13.5-17.5); Lymphocytes # (auto) 0.8 uL; Monocytes # (auto) 0.5 uL
[2020-01-04 06:52] LABS: Basophils % (auto) 0.7 % (0.0-2.0); Eosinophils # (auto) 0.2 uL; Eosinophils % (auto) 3.1 % (0.0-7.0); Lymphocytes % (auto) 16.3 % (10.0-50.0); Mean Corpuscular Hgb Conc. 32.6 g/dL (32.0-36.0); Mean Corpuscular Volume 76.7 fL (80.0-100.0); Monocytes % (auto) 9.6 % (0.0-12.0); Neutrophils # (auto) 3.7 uL; Neutrophils % (auto) 70.3 % (37.0-80.0); Platelet Count (auto) 336 10^3/uL (140-450); Red Blood Cells 3.52 10^6/uL (4.5-5.90); White Blood Cell 5.2 10^3/uL (4.4-10.8)
[2020-01-04 07:03] LABS: Albumin 2.5 g/dL (3.4-5.0); BUN/Creatinine Ratio 37.5; Potassium 3.6 mmol/L (3.5-5.1)
[2020-01-04 07:06] LABS: Bilirubin, Total 0.6 mg/dL (0.2-1.0); Total Protein 5.9 g/dL (6.4-8.2)
[2020-01-04 07:23] LABS: Red Cell Distribution Width 20.5 % (11.8-14.3)
--- NOTE | 2020-01-04 08:15 | NUR ---
Respiratory note: PT ASSESSED FOR PRN MED NEB TX, NO TX DESIRED NOR INDICATED AT THIS TIME. PT STATES HE DOES WEAR 2L N/C AT HOME AND DOES TAKE PRN MED NEB TX'S AT HOME. PT AND RN AWARE TO HAVE RT PAGED IF NEEDED. NO DISTRESS NOTED AT THIS TIME. HR 117 RR 18 SPO2 98% ON 2L N/C. BREATH SOUND ARE DIMINISHED WITH FEW SCATTERED CRACKLES.
[2020-01-04] MEDS ORDERED: CARVEDILOL 12.5 MG TAB PO SCH (10:00)
[2020-01-04] MEDS ORDERED: PATIENTS OWN MEDICATION (xarelto 20 MG) PO SCH (10:00)
[2020-01-04] MEDS ORDERED: FUROSEMIDE 20 MG TAB PO SCH (10:00)
[2020-01-04] MEDS: ASPirin 81 mg TAB PO SCH (10:11)
[2020-01-04] MEDS: POTASSIUM CHL 10 Meq TABLET PO SCH (10:12)
[2020-01-04] MEDS: PANTOPRAZOLE 40 MG TAB PO SCH (10:13)
[2020-01-04 11:14] VITALS: BP 104/68
--- NOTE | 2020-01-04 12:32 | NUR ---
Patient is tentatively scheduled to be on services with [facility]. Patient was unable to establish initial contact due to hospital admission.
[2020-01-04 13:00] VITALS: BP 104/68
[2020-01-04] MEDS ORDERED: RIVAROXABAN 20 MG TAB PO SCH (18:00)
[2020-01-04] MEDS: RIVAROXABAN 15 MG TAB PO SCH (18:05)
[2020-01-04] MEDS: ACETAMINOPHEN 325 MG TAB PO PRN (18:06)
--- NOTE | 2020-01-04 18:32 | NUR ---
RT NOTE: PT ON ROOM AIR WITH NO DISTRESS NOTED. BS CLEAR. SPO2 96% HR 77 RR 16. NO TX INDICATED AT THIS TIME.
--- NOTE | 2020-01-04 19:24 | NUR ---
Heart Rate Per Dr. Diez, "ok to order a 25mg dose of metoprolol if the patient's heart rate is above 120"
[2020-01-04] MEDS: PRAVASTATIN SODIUM 20 MG TAB PO SCH (21:54)
[2020-01-04] MEDS: METOPROLOL TARTRATE 25 MG TAB PO SCH (21:55)
[2020-01-04] MEDS: TEMAZEPAM 15 MG CAP PO PRN (23:31)
--- NOTE | 2020-01-05 02:36 | NUR ---
paged to notify patient requesting pain medication for his back, but patient is npo at this time.
[2020-01-05] MEDS ORDERED: MORPHINE SULF INJ 2 MG/ML SYRINGE 1ML IV ONE (03:00)
[2020-01-05 05:52] VITALS: BP 129/64
[2020-01-05 06:43] LABS: Basophils # (auto) 0 uL; Basophils % (auto) 0.5 % (0.0-2.0); Eosinophils # (auto) 0.2 uL; Eosinophils % (auto) 3.5 % (0.0-7.0); Hematocrit 26.6 % (41.0-53.0); Hemoglobin 8.6 g/dL (13.5-17.5); Lymphocytes # (auto) 0.9 uL; Lymphocytes % (auto) 20.1 % (10.0-50.0); Mean Corpuscular Hemoglobin 25.2 pg (28.0-32.0); Mean Corpuscular Hgb Conc. 32.4 g/dL (32.0-36.0); Mean Corpuscular Volume 77.8 fL (80.0-100.0); Monocytes # (auto) 0.5 uL; Monocytes % (auto) 11.1 % (0.0-12.0); Neutrophils # (auto) 2.8 uL; Neutrophils % (auto) 64.8 % (37.0-80.0); Platelet Count (auto) 308 10^3/uL (140-450); Red Blood Cells 3.41 10^6/uL (4.5-5.90); Red Cell Distribution Width 20.7 % (11.8-14.3); White Blood Cell 4.4 10^3/uL (4.4-10.8)
[2020-01-05 07:05] LABS: BUN/Creatinine Ratio 32.5; Calcium 8.6 mg/dL (8.5-10.1); Potassium 3.9 mmol/L (3.5-5.1)
[2020-01-05 08:00] VITALS: BP 147/77
--- NOTE | 2020-01-05 08:00 | NUR ---
ASSESSMENT NOTE PT IS ALERT ORIENTED X4, RESTING IN BED IN LOWFOWLER POSITION, ABLE TO VERBALIS HIS NEEDS, SELF REPOSITION, GENERALIS WEAKNESS NOTED, CALL LIGHT WITHIN REACH, SITTER AT BED SIDE AT ALL TIMES
--- NOTE | 2020-01-05 08:05 | NUR ---
OUT TO RADIOLOGY VIA WHEELCHAIR FOR STRESS TEST PART 1
--- NOTE | 2020-01-05 08:26 | NUR ---
PT IS BACK TO HIS ROOM, NO DISTRESS NOTED
[2020-01-05] MEDS ORDERED: ADENOSINE 36 MG in GIVE UN-DILUTED 0 ML IV STA (08:32)
[2020-01-05 09:00] VITALS: BP 144/72
--- NOTE | 2020-01-05 09:15 | NUR ---
OUT TO RADIOLOGY VIA WHEELCHAIR FOR STRESS TEST PART 2
--- NOTE | 2020-01-05 10:15 | NUR ---
PT IS BACK TO HIS ROOM, NO DISTRESS NOTED REQUESTING TO EAT BREAKFAST, DR MA AWARE
--- NOTE | 2020-01-05 10:19 | NUR ---
Respiratory note: PT ON 2L N/C, WITH NO DISTRESS NOTED. BS CLEAR. SPO2 100% HR 55 RR 16. NO TX INDICATED AT THIS TIME.PATIENT KNOWS TO HAVE RT PAGED IF TX IS NEEDED.
[2020-01-05] MEDS: ASPirin 81 mg TAB PO SCH (11:10)
[2020-01-05] MEDS: POTASSIUM CHL 10 Meq TABLET PO SCH (11:10)
[2020-01-05] MEDS: FUROSEMIDE 20 MG TAB PO SCH (11:11)
[2020-01-05] MEDS: PANTOPRAZOLE 40 MG TAB PO SCH (11:12)
[2020-01-05] MEDS: METOPROLOL TARTRATE 25 MG TAB PO SCH ×2 (11:12→21:54)
--- NOTE | 2020-01-05 11:30 | NUR ---
WOUND NURSE AT BED SIDE
--- NOTE | 2020-01-05 11:40 | NUR ---
WOUND CARE NOTE: Wound care consult received from nursing. Patient is a 84 yo male admitted for elevated troponin and ventricular tachycardia. Patient with a history of COPD, HTN, thyroid disease, hyperlipidemia, anxiety and recent right hip surgery (12/2019). Patient is alert and denies pain. Last Branden score is 19. Patient with a open wound to mid spine measuring 1.5x1cm that is covered with a serous scab, consistent with stage 2 pressure injury. Patient's sacrum and right heel are red, non-blanching and intact; consistent with stage 1 pressure injuries. No other open wounds noted. RECOMMENDATIONS: Dietary consult; Turn q2hrs; Nursing to cleanse mid back wound with NS/wound cleanser, pat dry, apply THERAHONEY GEL, cover with OPTIFOAM GENTLE dressing, change every other day/PRN; Nursing to cleanse buttocks with mild soap and water, pat dry, apply ZGUARD BID/PRN, change sacral foam dressing PRN soiling; wound care team to follow. Addendum: 01/05/20 at 1700 by CHEL VICTORIA RN Amended: Links added.
[2020-01-05 13:00] VITALS: BP 141/58
--- NOTE | 2020-01-05 14:00 | NUR ---
PATIENT'S FRIEND AND BEST FRIEND AT BED SIDE, CLARIFYING WHEN PT IS GOING HOME, MADE AWARE THAT WE ARE WAITING FOR STRESS TEST RESULTS
--- NOTE | 2020-01-05 14:07 | NUR ---
Nutrition Assessment Notes Please refer to link for full assessment notes Est energy needs: 5585-0271 kcals (25-30 kcals/kgIBW) Est protein needs: 62-78 gms/day (0.8-1.0 gms/kgIBW) Will continue to monitor and follow up prn Addendum: 01/05/20 at [address] Amended: Links added.
--- NOTE | 2020-01-05 15:39 | NUR ---
assessment Patient is a 84 year old male who is answering appropriately. Prior to admission patient lived with his caregiver and OSORIO Wright. Patient was admitted for fall at home that resulted in right hip fracture on last visit. Patient was sent home with home health and revoked hospice. Patient now wants to resume hospice with [facility]. I informed patient he has a right to speak to a social media director regarding all care. I informed patient he has a right to participate in any and all discharge planning. Patient does not have a POA and advanced directive. I have offered patient information on POA and advanced directives. I informed the patient the advantages and benefits of having an Advanced Directive. Patient verbalized understanding and agreed to discharge plan. Addendum: 01/05/20 at 1548 by Ree NASH Amended: Links added.
--- NOTE | 2020-01-05 15:54 | NUR ---
D/C Planning Per SS consult to resume service with [facility]. Faxed orders to [facility] Fax:). Placed followed called to Wendy with [facility] Ph:). Advised Wendy we are pending on discharge.
--- NOTE | 2020-01-05 16:34 | NUR ---
PT IS COMPLAINING FROM ANXIETY, PAGE DR MA
[2020-01-05] MEDS: ACETAMINOPHEN 325 MG TAB PO PRN (16:43)
--- NOTE | 2020-01-05 16:44 | NUR ---
DR MA CALLED BACK, SAID PT NEVER WAS ON ANXIETY MEDS BEFORE, MAY GIVE TYLENOL, PT AGREE
[2020-01-05 17:00] VITALS: BP 94/52
[2020-01-05] MEDS: RIVAROXABAN 15 MG TAB PO SCH (17:54)
--- NOTE | 2020-01-05 18:00 | NUR ---
DR VILLALTA IS HERE MADE AWARE THAT PT HAS STBALES ON THE RT HIP, WITH A VERBAL ORDER TO BE REMOVED TOMORROW
--- NOTE | 2020-01-05 18:30 | NUR ---
PT CONTINUE STABLE, NO DISTRESS NOTED, CONTINUE MONITORING
--- NOTE | 2020-01-05 19:05 | NUR ---
Respiratory note: PT ASSESSED FOR PRN MED NEB TX. HR 58, RR 16, SPO2 100% ON 2L NC. NO SIGNS OF ANY RESPIRATORY DISTRESS NOTED. ADVISED PT TO CALL IF TX IS NEEDED. RT NAME AND PAGER NUMBER WRITTEN ON PT'S BOARD.
--- NOTE | 2020-01-05 19:30 | NUR ---
RECEIVED PT FROM DAY RN POC REVIEWED
--- NOTE | 2020-01-05 20:35 | NUR ---
RESTING COMFORTABLE WITH HOB UP RESP EVEN AND UNLABORED, SITTER AT BEDSIDE FOR PTS SAFETY
[2020-01-05 21:00] VITALS: BP 134/48
[2020-01-05] MEDS: PRAVASTATIN SODIUM 20 MG TAB PO SCH (21:55)
[2020-01-05] MEDS: TEMAZEPAM 15 MG CAP PO PRN (21:55)
--- NOTE | 2020-01-06 06:11 | NUR ---
awoke am care given alert and calm, no c/o pain and discomfort
[2020-01-06 06:13] VITALS: BP 148/71
--- NOTE | 2020-01-06 06:47 | NUR ---
report given to am nurse poc reviewed
[2020-01-06 07:25] LABS: BUN/Creatinine Ratio 32.8; Calcium 8.3 mg/dL (8.5-10.1); Potassium 3.9 mmol/L (3.5-5.1)
[2020-01-06 08:00] VITALS: BP 134/48
--- NOTE | 2020-01-06 08:00 | NUR ---
Opening Shift Note Assumed care of patient, he is awake and alert. No S/S of distress/SOB or pain. Instructed on POC and to call for assist PRN. Bed is in lowest and locked position, call light is within reach. Will continue to monitor for changes Q1hr and PRN. Signed: 01/06/20 at 1236 by SN SIXTO <Co-Signature Required> Co-Signed: 01/06/20 at 1236 by Rachelle Duncan RN
[2020-01-06] MEDS: PANTOPRAZOLE 40 MG TAB PO SCH (08:50)
[2020-01-06] MEDS: METOPROLOL TARTRATE 25 MG TAB PO SCH (08:50)
[2020-01-06] MEDS: FUROSEMIDE 20 MG TAB PO SCH (08:51)
[2020-01-06] MEDS: ASPirin 81 mg TAB PO SCH (08:51)
[2020-01-06] MEDS: POTASSIUM CHL 10 Meq TABLET PO SCH (08:51)
[2020-01-06 09:00] VITALS: BP 143/97
--- NOTE | 2020-01-06 10:05 | NUR ---
RT NOTE: PRN BREATHING TX. NOT INDICATED AT THIS TIME. PT. DENIES ANY SOB. PT. HR 58, RR 16, POX 99% 1.5L N/C. PT. ADVISED TO NOTIFY RN OR SITTER IF BREATHING TX. IS NEEDED. SITTER AT BEDSIDE.
--- NOTE | 2020-01-06 10:30 | NUR ---
Dr Gomez at bedside POC discussed with patient. Reviewed results of testing and instructed patient to follow up with Dr. Diez for cardiology. Signed: 01/06/20 at 1042 by SN SIXTO <Co-Signature Required> Co-Signed: 01/06/20 at 1042 by Rachelle Duncan RN
--- NOTE | 2020-01-06 10:43 | NUR ---
Opening Shift Note Assumed care of patient, he is awake and alert. No S/S of distress/SOB or pain. Instructed on POC and to call for assist PRN. Bed is in lowest and locked position, call light is within reach. Will continue to monitor for changes Q1hr and PRN. Signed: 01/06/20 at 1048 by SN SIXTO <Co-Signature Required> Co-Signed: 01/06/20 at 1048 by Rachelle Duncan RN
[2020-01-06] MEDS ORDERED: FUR20T PO (10:47)
[2020-01-06] MEDS ORDERED: RIV15T PO (10:47)
[2020-01-06] MEDS ORDERED: DOXY-111 PO (10:48)
--- NOTE | 2020-01-06 11:30 | NUR ---
PATIENT'S BEST FRIEND AND POA AT BED SIDE TO TAKE PT HOME, PT RAN OUT OF HOME OXYGEN , CAT SITTER HARPREET MADE AWARE TRYING TO CALL IT IN
--- NOTE | 2020-01-06 11:40 | NUR ---
DC photos taken Photos taken of the middle back, right heel and sacrum for DC. Dressed with optifoam. Signed: 01/06/20 at 1237 by SN SIXTO <Co-Signature Required> Co-Signed: 01/06/20 at 1237 by Rachelle Duncan RN
--- NOTE | 2020-01-06 12:00 | NUR ---
JORGE LUIS PATIENT'S GAS WELDING MACHINE OPERATOR IS HERE WITHOUT HOME OXYGEN, SAID WILL BE BACK AT 3 PM
--- NOTE | 2020-01-06 12:19 | NUR ---
Staple Removal DC Note: Orders received to remove emilie. Penasco removed using sterile technique. Right hip incision approximated, no drainage/redness/inflammation visualized at time of removal. Education provided on incisional care. Patient verbalized understanding and willingness to comply to instructions/teaching provided. Signed: 01/06/20 at 1224 by SN SIXTO <Co-Signature Required> Co-Signed: 01/06/20 at 1224 by Rachelle Duncan RN
[2020-01-06 13:00] VITALS: BP 113/60
[2020-01-06 13:11] VITALS: BP 113/60
--- NOTE | 2020-01-06 13:53 | NUR ---
ROOM AIR SATURATION IS 93% PT STATED I HAVE OXYGEN CONCENTRATOR AT HOME AND [facility] WILL BE HERE AT 3 TO TAKE ME HOME
--- NOTE | 2020-01-06 14:33 | NUR ---
Placed followed up called to [facility], spoke to Wendy. Advised Wendy patient will discharge home today and friend Lux will transport him home.
[2020-01-06] MEDS: RIVAROXABAN 15 MG TAB PO SCH (17:22)
--- NOTE | 2020-01-06 17:25 | NUR ---
PATIENT'S RIDE HOME IS NOT HERE YET, ATTEMPT TO CALL THE ROTARY SCREEN PRINTING MACHINE OPERATOR, NUMBER IS DISCONNECTED
--- NOTE | 2020-01-06 17:40 | NUR ---
JORGE LUIS PATIENT'S POA AT BED SIDE TO CONSUMER RELATIONS SPECIALIST PT, PT LIVES CLOSE BY, PT WILL USE HOME OXYGEN UPON ARRIVAL AND [facility] WILL ORDER A NEW PORTABLE TANK TOMORROW, ALL DISCHARGE INSTRUCTION READ TO PT AND MAGN[facility], [facility] MADE AWARE THAT PT OCCASIONALLY IS FORGETFUL AND HE NEED TO HELP PT TO MONITOR HIS MEDICATIONS AND FOLLOW UP WITH DR MERCADO OUT PT, ALSO PT AND MAGNUS MADE AWARE THAT [facility] TECH WILL SEE PT TONIGHT AT HOME FOR FOLLOW UP, BOTH VERBALIS UNDERSTANDING
--- NOTE | 2020-01-06 17:50 | NUR ---
Discharge instructions given as ordered. Encourage to follow up with PMD as instructed. All questions and concerns addressed. Patient verbalized understanding. Medication reconciliation form completed and copy given to patient.IV removed with catheter intact, pressure dressing applied. Telemetry unit returned to ICU. Patient taken to vehicle via wheelchair with all personal belongings, accompanied by staff and family member. No distress noted at time of departure.
[2020-01-06 18:53] VITALS: BP 121/70
== END 2020-01-06 17:50 | disposition hospice, home (50) | DRG 682 ==
LOC: ER 19:30 → TELE 19:31 → TELE-EAST 01-04 10:50
PROVIDERS: ADMIT Nurse Practitioner; ATTEND Internal Medicine Nephrology
DX: N17.0 Acute kidney failure with tubular necrosis (principal); I50.43 Acute on chronic combined systolic (congestive) and diastolic (congestive) heart failure; I13.0 Hypertensive heart and chronic kidney disease with heart failure and stage 1 through stage 4 chronic kidney disease, or unspecified chronic kidney disease; E87.1 Hypo-osmolality and hyponatremia; R64 Cachexia; E44.0 Moderate protein-calorie malnutrition; Z68.1 Body mass index [BMI] 19.9 or less, adult; D64.9 Anemia, unspecified; I48.91 Unspecified atrial fibrillation; N18.3 Chronic kidney disease, stage 3 (moderate); F41.9 Anxiety disorder, unspecified; E78.5 Hyperlipidemia, unspecified; F17.210 Nicotine dependence, cigarettes, uncomplicated; J44.9 Chronic obstructive pulmonary disease, unspecified; R79.89 Other specified abnormal findings of blood chemistry; E03.9 Hypothyroidism, unspecified; Z79.01 Long term (current) use of anticoagulants; Z86.73 Personal history of transient ischemic attack (TIA), and cerebral infarction without residual deficits; Z82.49 Family history of ischemic heart disease and other diseases of the circulatory system; Z99.81 Dependence on supplemental oxygen
CPT/HCPCS: 36415; 71045; 78452; 80048; 80053; 81001; 83605; 83880; 84484; 85025; 85610; 85730; 87081; 93005; 93017; G0378; J0153; J7060

== ENCOUNTER 2020-01-15 11:45 | Emergency (ER) | payer BC ==
[~2020-01-15] VITALS: Ht 180.3 cm; Wt 43.1 kg
[~2020-01-15 11:45] MED LIST changes: +DOXY-111 PO; +FUR20T PO; -PERCOT PO; +RIV15T PO; -RIVA20TA PO
[2020-01-15] MEDS ORDERED: KETOROLAC TROMETH 60MG/2ML VIAL IM ONE (13:00)
[2020-01-15 16:04] VITALS: BP 135/74
== END 2020-01-15 15:35 | disposition home or self-care (01) ==
LOC: ER 11:45
DX: G89.4 Chronic pain syndrome (principal); M51.37 Other intervertebral disc degeneration, lumbosacral region; I48.91 Unspecified atrial fibrillation; J44.9 Chronic obstructive pulmonary disease, unspecified; I10 Essential (primary) hypertension; F17.210 Nicotine dependence, cigarettes, uncomplicated
CPT/HCPCS: 72100; 96372; 99283; J1885

== ENCOUNTER 2020-08-26 02:13 | Inpatient (IN) | payer BC ==
[2020-08-26] VITALS (9 sets, daily range): BP systolic 113–162; BP diastolic 62–90
[~2020-08-26] VITALS: Ht 180.3 cm; Wt 40.9 kg
[2020-08-26] MEDS ORDERED: SODIUM CHLORIDE 0.9% 1,000 ML IV SCH (04:30)
[2020-08-26] MEDS ORDERED: MORPHINE SULF INJ 2 MG/ML SYRINGE 1ML IV PRN (04:30)
[2020-08-26] MEDS ORDERED: ACETAMINOPHEN 325 MG TAB PO PRN (04:30)
[2020-08-26] MEDS ORDERED: ONDANSETRON HCL 4 MG/2 ML VIAL IV PRN (04:30)
[2020-08-26] MEDS ORDERED: NITROGLYCERIN 0.4 MG SL TAB SL PRN (04:30)
[2020-08-26] MEDS ORDERED: ALBUTEROL SULF HFA 90MCG INH 200DOSE IN SCH (06:00)
[2020-08-26] MEDS: SODIUM CHLOR 0.9% PF (SALINE LOCK) 10ML VIAL/SYR IV SCH ×3 (06:13→22:05)
[2020-08-26] MEDS ORDERED: ALBUTEROL SULF 2.5 MG/0.5ML(0.5%) NEB SOLN NEB PRN (07:00)
[2020-08-26 08:55] LABS: Cholesterol 139 mg/dL (< 200); HDL Cholesterol 63 mg/dL (40-59); LDL Cholesterol 62 mg/dL (< 100); Triglycerides 123 mg/dL (< 150)
[2020-08-26] MEDS: FUROSEMIDE 20 MG/2 ML VIAL IV SCH (09:00)
[2020-08-26] MEDS: ASPirin 81 mg TAB PO SCH (09:18)
[2020-08-26] MEDS: CARVEDILOL 12.5 MG TAB PO SCH ×2 (09:21→22:05)
[2020-08-26] MEDS: FAMOTIDINE 20 MG TAB PO SCH ×2 (09:22→22:05)
[2020-08-26] MEDS: MULTIPLE VITAMIN TAB PO SCH (09:23)
[2020-08-26] MEDS ORDERED: BUDESONIDE (INHALATION) 180 MCG IH IN SCH (10:00)
[2020-08-26] MEDS ORDERED: ASCORBIC ACID 1,000 MG TAB PO SCH (10:00)
[2020-08-26] MEDS ORDERED: CHOLECALCIFEROL (VITD3) 2,000 UNIT CAP PO SCH (10:00)
[2020-08-26] MEDS: SACUBITRIL-VALSARTAN 24mg/26mg TAB PO SCH ×2 (12:10→22:05)
[2020-08-27] VITALS (7 sets, daily range): BP systolic 82–132; BP diastolic 43–72
[2020-08-27] MEDS: SODIUM CHLOR 0.9% PF (SALINE LOCK) 10ML VIAL/SYR IV SCH ×3 (05:42→21:34)
[2020-08-27 06:46] LABS: Basophils # (auto) 0 10 ^3/uL (0-0.2); Basophils % (auto) 0.4 % (0.0-2.0); Eosinophils # (auto) 0.1 10 ^3/uL (0-0.8); Hematocrit 38.1 % (41.0-53.0); Hemoglobin 12.7 g/dL (13.5-17.5); Lymphocytes # (auto) 0.9 10 ^3/uL (0.4-5.4); Lymphocytes % (auto) 15.1 % (10.0-50.0); Mean Corpuscular Hemoglobin 30.1 pg (28.0-32.0); Mean Corpuscular Hgb Conc. 33.3 g/dL (32.0-36.0); Mean Corpuscular Volume 90.6 fL (80.0-100.0); Monocytes # (auto) 0.5 10 ^3/uL (0-1.3); Neutrophils # (auto) 4.6 10 ^3/uL (1.6-8.6); Neutrophils % (auto) 74.5 % (37.0-80.0); Nucleated Red Blood Cells % 0.1 %; Platelet Count (auto) 221 10^3/uL (140-450); Red Cell Distribution Width 15.2 % (11.8-14.3); White Blood Cell 6.2 10^3/uL (4.4-10.8)
[2020-08-27 07:07] LABS: Albumin 2.7 g/dL (3.4-5.0); Bilirubin, Total 0.4 mg/dL (0.2-1.0); Calcium 8.3 mg/dL (8.5-10.1); Total Protein 5.5 g/dL (6.4-8.2)
[2020-08-27] MEDS: ASPirin 81 mg TAB PO SCH (08:47)
[2020-08-27] MEDS: CARVEDILOL 12.5 MG TAB PO SCH ×2 (08:47→21:33)
[2020-08-27] MEDS: MULTIPLE VITAMIN TAB PO SCH (08:48)
[2020-08-27] MEDS: SACUBITRIL-VALSARTAN 24mg/26mg TAB PO SCH ×2 (08:48→21:34)
[2020-08-27] MEDS: FUROSEMIDE 20 MG/2 ML VIAL IV SCH (08:48)
[2020-08-27] MEDS: FAMOTIDINE 20 MG TAB PO SCH ×2 (08:49→21:34)
[2020-08-27] MEDS: DOCUSATE SOD 100 MG CAP PO PRN (16:38)
[2020-08-28 05:00] VITALS: BP 108/56
[2020-08-28] MEDS: SODIUM CHLOR 0.9% PF (SALINE LOCK) 10ML VIAL/SYR IV SCH ×3 (06:00→21:46)
[2020-08-28 09:00] VITALS: BP 138/81
[2020-08-28] MEDS: ASPirin 81 mg TAB PO SCH (09:49)
[2020-08-28] MEDS: CARVEDILOL 12.5 MG TAB PO SCH ×2 (09:49→21:43)
[2020-08-28] MEDS: FUROSEMIDE 20 MG/2 ML VIAL IV SCH (09:49)
[2020-08-28] MEDS: MULTIPLE VITAMIN TAB PO SCH (09:50)
[2020-08-28] MEDS: SACUBITRIL-VALSARTAN 24mg/26mg TAB PO SCH ×2 (09:50→21:43)
[2020-08-28] MEDS: FAMOTIDINE 20 MG TAB PO SCH (09:50)
[2020-08-28 10:15] LABS: Folate (Folic Acid) 12.38 ng/mL (5.38-24)
[2020-08-28 11:31] LABS: Calcium 8.6 mg/dL (8.5-10.1)
[2020-08-28 11:33] LABS: BUN/Creatinine Ratio 24.5
[2020-08-28] MEDS ORDERED: SACU1TAB PO (12:41)
[2020-08-28] MEDS ORDERED: MULTTAB99 PO (12:41)
[2020-08-28] MEDS ORDERED: HALOPERIDOL 1 MG TAB PO PRN (12:45)
[2020-08-28] MEDS ORDERED: MIRT1TAB PO (12:45)
[2020-08-28 13:00] VITALS: BP 98/61
[2020-08-28 17:00] VITALS: BP 108/58
[2020-08-28] MEDS: DOCUSATE SOD 100 MG CAP PO PRN (21:46)
[2020-08-28 22:00] VITALS: BP 132/62
[2020-08-28] MEDS ORDERED: MIRTAZAPINE 30 MG TAB PO SCH (22:00)
[2020-08-29 05:00] VITALS: BP 127/64
[2020-08-29] MEDS: SODIUM CHLOR 0.9% PF (SALINE LOCK) 10ML VIAL/SYR IV SCH (06:12)
[2020-08-29 09:00] VITALS: BP 111/46
[2020-08-29 09:23] VITALS: BP 127/64
[2020-08-29] MEDS ORDERED: FAMOTIDINE 20 MG TAB PO SCH (10:00)
[2020-08-29] MEDS: CARVEDILOL 12.5 MG TAB PO SCH (10:09)
[2020-08-29] MEDS: FUROSEMIDE 20 MG/2 ML VIAL IV SCH (10:09)
[2020-08-29] MEDS: SACUBITRIL-VALSARTAN 24mg/26mg TAB PO SCH (10:09)
[2020-08-29] MEDS: ASPirin 81 mg TAB PO SCH (10:09)
[2020-08-29] MEDS: MULTIPLE VITAMIN TAB PO SCH (10:10)
== END 2020-08-29 16:36 | disposition hospice, home (50) | DRG 291 ==
LOC: TELE-CENTR 02:13
PROVIDERS: ADMIT Nurse Practitioner Family; ATTEND Internal Medicine
DX: I50.23 Acute on chronic systolic (congestive) heart failure (principal); G93.41 Metabolic encephalopathy; J96.00 Acute respiratory failure, unspecified whether with hypoxia or hypercapnia; E43 Unspecified severe protein-calorie malnutrition; I42.9 Cardiomyopathy, unspecified; J44.1 Chronic obstructive pulmonary disease with (acute) exacerbation; Z68.1 Body mass index [BMI] 19.9 or less, adult; Z20.828 Contact with and (suspected) exposure to other viral communicable diseases; F17.200 Nicotine dependence, unspecified, uncomplicated; D50.9 Iron deficiency anemia, unspecified; I25.10 Atherosclerotic heart disease of native coronary artery without angina pectoris; Z59.0 Homelessness; Z84.89 Family history of other specified conditions; Z82.49 Family history of ischemic heart disease and other diseases of the circulatory system; Z79.899 Other long term (current) drug therapy; Z79.891 Long term (current) use of opiate analgesic; Z79.01 Long term (current) use of anticoagulants; Z71.6 Tobacco abuse counseling
CPT/HCPCS: 36415; 71045; 80048; 80053; 80061; 82728; 82746; 83540; 83550; 83615; 83880; 84443; 85025; 87426; 93306; G0378

== ENCOUNTER 2020-09-07 15:40 | Inpatient (IN) | payer BC ==
[~2020-09-07] VITALS: Ht 175.3 cm; Wt 45.3 kg
[~2020-09-07 15:40] MED LIST changes: -DOXY-111 PO; +MIRT1TAB PO; +MULTTAB99 PO; +SACU1TAB PO
[2020-09-07] MEDS ORDERED: methylPREDNISolone SOD SUCC 125 MG/2 ML VL IV ONE (16:30)
[2020-09-07 16:50] LABS: Basophils # (auto) 0 10 ^3/uL (0-0.2); Basophils % (auto) 0.4 % (0.0-2.0); Eosinophils # (auto) 0.2 10 ^3/uL (0-0.8); Eosinophils % (auto) 2.1 % (0.0-7.0); Hemoglobin 13.1 g/dL (13.5-17.5); Lymphocytes # (auto) 1.1 10 ^3/uL (0.4-5.4); Lymphocytes % (auto) 14.5 % (10.0-50.0); Mean Corpuscular Hemoglobin 30.1 pg (28.0-32.0); Mean Corpuscular Hgb Conc. 32.9 g/dL (32.0-36.0); Mean Corpuscular Volume 91.5 fL (80.0-100.0); Monocytes # (auto) 0.6 10 ^3/uL (0-1.3); Monocytes % (auto) 7.7 % (0.0-12.0); Neutrophils # (auto) 5.9 10 ^3/uL (1.6-8.6); Neutrophils % (auto) 75.3 % (37.0-80.0); Nucleated Red Blood Cells % 0.2 %; Platelet Count (auto) 277 10^3/uL (140-450); Red Blood Cells 4.37 10^6/uL (4.5-5.90); Red Cell Distribution Width 16.3 % (11.8-14.3); White Blood Cell 7.8 10^3/uL (4.4-10.8)
[2020-09-07 17:07] LABS: Anion Gap 5 (5-15); Blood Urea Nitrogen 28 mg/dL (7-18); Calcium 8.3 mg/dL (8.5-10.1); Carbon Dioxide 28 mmol/L (21-32); Chloride 107 mmol/L (98-107); Glucose 132 mg/dL (74-106); Potassium 4.5 mmol/L (3.5-5.1); Sodium 140 mmol/L (136-145)
[2020-09-07 17:12] LABS: Alanine Aminotransferase 16 U/L (16-61); Alkaline Phosphatase 138 U/L (45-117); Aspartate Aminotransferase 20 U/L (15-37); BUN/Creatinine Ratio 27.5; Bilirubin, Total 0.2 mg/dL (0.2-1.0); CRP High Sensitivity 0.38 mg/dL (< 0.3); GFR African American 89 mL/min; GFR Non-African American 74 mL/min; Total Protein 6.5 g/dL (6.4-8.2)
[2020-09-07] MEDS ORDERED: FUROSEMIDE 40 MG/4 ML VIAL IV ONE (18:00)
[2020-09-07] MEDS ORDERED: MORPHINE SULF INJ 2 MG/ML SYRINGE 1ML IV PRN (18:15)
[2020-09-07] MEDS ORDERED: NITROGLYCERIN 0.4 MG SL TAB SL PRN (18:15)
[2020-09-07] MEDS ORDERED: LACTULOSE 20Gm/30ML SOLN PO PRN (18:45)
[2020-09-07] MEDS ORDERED: PROMETHAZINE HCL 25 MG/ML 1ML IV PRN (18:45)
[2020-09-07] MEDS ORDERED: ALBUTEROL SULF 2.5 MG/0.5ML(0.5%) NEB SOLN NEB PRN (18:45)
[2020-09-07] MEDS ORDERED: TEMAZEPAM 15 MG CAP PO PRN (18:45)
[2020-09-07] MEDS ORDERED: ACETAMINOPHEN 500 MG TAB PO PRN (18:45)
[2020-09-07] MEDS ORDERED: HYDROcodone-ACET 5/325MG TAB PO PRN (18:45)
[2020-09-07 19:20] VITALS: BP 142/62
--- NOTE | 2020-09-07 20:47 | NUR ---
Patient Brought to Unit from ER with all belongings Patient is AOx4 but he is a poor historian. Patient was brought via own wheelchair. Patient saturation at 88% and having some SOB. Patient is now on 1 1/2 L per min. and saturation is 95%. POC was discussed with patient and patient verbally agreed to understanding. Two cigarette lighters were found in patient's belonging bag. Told patient we will hold on to items until discharge, patient verbally agreed to understanding. Will continue to monitor.
[2020-09-07 20:50] VITALS: BP 121/53
[2020-09-07 22:26] LABS: Urine Bacteria FEW /hpf (None Seen); Urine Blood Negative /uL (Negative); Urine Specific Gravity 1.006 (1.001-1.035); Urine WBC <1 /hpf (0 - 3)
[2020-09-07] MEDS: CLINDAMYCIN 300MG IV 50 ML IV SCH (22:39)
[2020-09-07] MEDS: SODIUM CHLOR 0.9% PF (SALINE LOCK) 10ML VIAL/SYR IV SCH (22:39)
[2020-09-07] MEDS: COLCHICINE 0.6 MG CAP PO SCH (22:40)
[2020-09-07] MEDS: CARVEDILOL 3.125 MG TAB PO SCH (22:40)
--- NOTE | 2020-09-08 04:25 | NUR ---
Patient Refuses Morning Vitals at This Time Per GEOGRAPHICAL HISTORIAN the patient said, "come back in two hours." Patient is resting with eyes closed and does not want to be bothered. Will attempt a set of vitals when patient is awake and oriented without refusal.
--- NOTE | 2020-09-08 05:25 | NUR ---
Attempted to Take BP for Second time Patient educated on the need for vitals but again refused. Patient used profanity and was disrespectful to MANAGER PART and myself by stating, "It's the middle of the night, leave me the F*ck alone." Told patient to please be respectful and patient closed his eyes and ignored what was said. Will let morning shift RN know and make aware of refusal.
[2020-09-08] MEDS: CLINDAMYCIN 300MG IV 50 ML IV SCH ×3 (05:31→23:11)
[2020-09-08] MEDS: SODIUM CHLOR 0.9% PF (SALINE LOCK) 10ML VIAL/SYR IV SCH ×3 (05:31→22:00)
[2020-09-08] MEDS: IPRATROPIUM BROM 0.5 MG/2.5ML INH SOL NEB SCH ×4 (07:10→18:59)
[2020-09-08] MEDS: ALBUTEROL SULF 2.5 MG/0.5ML(0.5%) NEB SOLN NEB SCH ×4 (07:11→18:59)
[2020-09-08] MEDS: methylPREDNISolone SOD SUCC 40 MG/ML VL IV SCH (09:38)
[2020-09-08] MEDS: ASPirin 81 mg TAB PO SCH (09:40)
[2020-09-08] MEDS: COLCHICINE 0.6 MG CAP PO SCH ×2 (09:40→22:57)
[2020-09-08] MEDS: CARVEDILOL 3.125 MG TAB PO SCH ×2 (09:47→22:56)
[2020-09-08] MEDS ORDERED: ENALAPRIL MALEATE 2.5 MG TAB PO SCH (10:00)
[2020-09-08] MEDS ORDERED: levoFLOXacin 500MG 100 ML IV SCH (10:00)
[2020-09-08] MEDS ORDERED: ENOXAPARIN SOD 40 MG/0.4 ML SYRINGE SC SCH (10:00)
[2020-09-08 13:15] VITALS: BP 115/46
--- NOTE | 2020-09-08 14:54 | NUR ---
REFUSING TREATMENT REMOVED TELE BOX REFUSING MEDICATION. WANTS TO LEAVE AMA BUT HAS NO NUMBER TO CONTACT SOME ONE TO PICK HIM UP. HE SAID HE WANTS TO GO OUTSIDE AND SMOKE I OFFERED TO GET A NICOTINE PATCH BUT HE REFUSED. HE IS VERY FORGETFUL AT TIMES.
--- NOTE | 2020-09-08 15:20 | NUR ---
TRANSFERRED TO ROOM 291 B NO SIGNS OF DISTRESS. REPORT GIVEN TO DEVANG Garner
--- NOTE | 2020-09-08 15:30 | NUR ---
ASSUMED CARE ASSUMED CARE OF PATIENT ALERT AND HOSTILE. PATIENT CURRENTLY CUSSING AT STAFF STATING HE WOULD LIKE TO "GO OUTSIDE AND GET SOME FRESH FUCKING AIR." PATIENT MADE AWARE THAT THIS BEHAVIOR WILL NOT BE TOLERATED. PATIENT REFUSING TELEMETRY MONITORING WELL A MRSA SCREEN. EDUCATED PATIENT ON IMPORTANCE OF CONTINUOUS MONITORING. PATIENT UPDATED ON POC AND POLICIES AND PROCEDURES FOR THIS UNIT, VERBALIZED UNDERSTANDING. WILL CONTINUE TO MONITOR Q1H AND PRN.
--- NOTE | 2020-09-08 16:30 | NUR ---
AMA TO SMOKE PATIENT SIGNED AMA TO SMOKE AND IS GOING DOWNSTAIRS. PATIENT EDUCATED ON IMPORTANCE OXYGEN THERAPY, HE VERBALIZED UNDERSTANDING AND WOULD STILL LIKE TO DOWN.
[2020-09-08 16:56] VITALS: BP 112/56
--- NOTE | 2020-09-08 17:30 | NUR ---
BEHAVIOR RECEIVED CALL FROM RADIOLOGY ASKING THIS RN TO COME RETRIEVE PATIENT. HE ENTERED THE RADIOLOGY DEPARTMENT AND PROCEEDED TO SAY HI TO ALL THE PATIENTS RECEIVING SERVICES THERE. PATIENT WAS FOUND IN ER LOBBY ASKING TO SPEAK TO DR HARRISON TO SAY HALLEY. PATIENT INFORMED THIS RN HE FOUND MULTIPLE HALF SMOKED CIGARETTES ON THE GROUND TO SMOKE. PATIENT BROUGHT BACK TO ROOM. WILL CONTINUE CARE.
--- NOTE | 2020-09-08 17:45 | NUR ---
PHYSICAL THERAPY PHYSICAL THERAPIST AT BEDSIDE EVALUATING PATIENT.
--- NOTE | 2020-09-08 19:30 | NUR ---
Opening Shift Note Assumed care of patient, awake and alert. No S/S of distress/SOB or pain. Insructed on POC and to callfor assist PRN, will continue to monitor for changes Q1hr and PRN.
[2020-09-08] MEDS: MORPHINE SULF INJ 2 MG/ML SYRINGE 1ML IV PRN (19:42)
[2020-09-08 22:00] VITALS: BP 113/64
[2020-09-08] MEDS ORDERED: VANCOMYCIN 1GM/250ML 250 ML IV ONE (23:45)
[2020-09-09] MEDS ORDERED: VANCOMYCIN PER PHARMACY 0 MG IV SCH
[2020-09-09] MEDS: IPRATROPIUM BROM 0.5 MG/2.5ML INH SOL NEB SCH ×3 (00:21→11:17)
[2020-09-09] MEDS: ALBUTEROL SULF 2.5 MG/0.5ML(0.5%) NEB SOLN NEB SCH ×3 (00:22→11:17)
[2020-09-09] MEDS: MORPHINE SULF INJ 2 MG/ML SYRINGE 1ML IV PRN (02:02)
--- NOTE | 2020-09-09 05:01 | NUR ---
PT refused Pt refused continuous cardiac monitoring. Educated pt on purpose of continuous cardiac monitoring, still refused. Addendum: 09/09/20 at 0503 by CLARISSE OGLESBY RN RN Amended: Links added.
--- NOTE | 2020-09-09 05:09 | NUR ---
Patient Refuses Morning Vitals at This Time Per CHAUFFEUR the patient said, "I had not gotten any sleep." Patient is resting with eyes closed and does not want to be bothered. Will attempt a set of vitals when patient is awake and oriented without refusal.
[2020-09-09] MEDS: SODIUM CHLOR 0.9% PF (SALINE LOCK) 10ML VIAL/SYR IV SCH ×2 (06:10→14:18)
[2020-09-09 06:42] LABS: Amphetamine Screen, Urine NEGATIVE (NEGATIVE); Barbiturate Scree,Urine NEGATIVE (NEGATIVE); Benzodiazephine Screen, Urine POSITIVE (NEGATIVE); Cannabinoid Screen, Urine NEGATIVE (NEGATIVE); Cocaine Screen, Urine NEGATIVE (NEGATIVE); Opiate Scree,Urine NEGATIVE (NEGATIVE); Phencyclidine Screen, Urine NEGATIVE (NEGATIVE)
[2020-09-09 08:05] LABS: Calcium 8.3 mg/dL (8.5-10.1); Magnesium 2.4 mg/dL (1.6-2.6); Potassium 4.2 mmol/L (3.5-5.1)
[2020-09-09 09:21] VITALS: BP 117/70
[2020-09-09] MEDS: methylPREDNISolone SOD SUCC 40 MG/ML VL IV SCH (09:26)
[2020-09-09] MEDS: CARVEDILOL 3.125 MG TAB PO SCH (09:27)
[2020-09-09] MEDS: ASPirin 81 mg TAB PO SCH (09:27)
--- NOTE | 2020-09-09 09:40 | NUR ---
PT. ASSESSED, NO RESP. DISTRESS OR SOB NOTED. PT. HAVING ULTRASOUND DONE AT THIS TIME. HR 56,RR 18, SP02 93% ON RA., WILL CONTINUE TO MONITOR RESP. STATUS.
[2020-09-09] MEDS ORDERED: FUROSEMIDE 20 MG TAB PO SCH (10:00)
[2020-09-09] MEDS ORDERED: PANTOPRAZOLE 40 MG TAB PO SCH (10:00)
[2020-09-09] MEDS ORDERED: SACUBITRIL-VALSARTAN 24mg/26mg TAB PO SCH (10:00)
[2020-09-09 11:50] VITALS: BP 104/62
--- NOTE | 2020-09-09 11:50 | NUR ---
PATIENT FOUND IN ER LOBBY SCAVENGING FOR CIGARETTES. PT EDUCATED ON IMPORTANCE OF STAYING IN UNIT. PT BACK IN UNIT.
--- NOTE | 2020-09-09 13:00 | NUR ---
PT FOUND SMOKING IN ROOM, SECURITY STAFF IN. PROFESSOR OF ART HISTORY RETRIEVED FROM PT. PT EDUCATED ON RISKS OF BEHAVIOR.
--- NOTE | 2020-09-09 15:52 | NUR ---
DR. GOMES MADE AWARE OF BLOOD Cx RESULTS. PER MD- PT WILL BE DC.
--- NOTE | 2020-09-09 16:35 | NUR ---
SPOKE TO REGI (TRANSPORTATION) IN REGARDS TO PT'S DC PLANNING. PER REGI-WILL CALL BACK IN ONE HOUR. PT AWARE.
[2020-09-09 16:53] VITALS: BP 104/62
--- NOTE | 2020-09-09 17:30 | NUR ---
REGI STATES HE WILL PROVIDE TRANSPORTATION. PT AWARE TO WAIT FOR TRANSPORTATION.
[2020-09-09] MEDS ORDERED: RIVAROXABAN 15 MG TAB PO SCH (18:00)
--- NOTE | 2020-09-09 18:00 | NUR ---
DISCHARGE INSTRUCTIONS PROVIDED TO PT. PT VERBALIZED UNDERSTANDING FOR PRESCRIPTION ORDERS AND FOLLOW UP APPOINTMENT WITH PCP. EDUCATIONAL MATERIAL PROVIDED, ALL QUESTIONS AND CONCERNS ADDRESSED. IV CATHETER DC, CATHETER INTACT, NO PHLEBITIS. AWAITING FOR TRANSPORT.
--- NOTE | 2020-09-09 18:47 | NUR ---
PT VERY ANXIOUS ON GOING AND DOES NOT WANT TO WAIT FOR REGI IN UNIT. PT STATES "I WILL GO DOWN STAIRS AND WAIT FOR HIM IN THE LOBBY, AND YOU CANNOT STOP ME" PT LEFT UNIT VIA WHEELCHAIR.
[2020-09-09] MEDS ORDERED: ATORVASTATIN 20 MG TAB PO SCH (22:00)
[2020-09-09] MEDS ORDERED: MIRTAZAPINE 30 MG TAB PO SCH (22:00)
[2020-09-10] MEDS ORDERED: VANCOMYCIN 1GM/250ML 250 ML IV SCH (12:00)
== END 2020-09-09 18:55 | disposition home or self-care (01) | DRG 291 ==
LOC: ER 15:40 → TELE 15:41 → TELE-EAST 22:42 → TELE-WESTW 09-08 15:16
PROVIDERS: ADMIT Internal Medicine; ATTEND Internal Medicine
DX: I11.0 Hypertensive heart disease with heart failure (principal); E43 Unspecified severe protein-calorie malnutrition; J44.0 Chronic obstructive pulmonary disease with (acute) lower respiratory infection; J44.1 Chronic obstructive pulmonary disease with (acute) exacerbation; J45.901 Unspecified asthma with (acute) exacerbation; J96.10 Chronic respiratory failure, unspecified whether with hypoxia or hypercapnia; D68.69 Other thrombophilia; I48.92 Unspecified atrial flutter; Z68.1 Body mass index [BMI] 19.9 or less, adult; I48.20 Chronic atrial fibrillation, unspecified; J20.9 Acute bronchitis, unspecified; I50.43 Acute on chronic combined systolic (congestive) and diastolic (congestive) heart failure; I42.9 Cardiomyopathy, unspecified; E78.5 Hyperlipidemia, unspecified; F17.210 Nicotine dependence, cigarettes, uncomplicated; G89.29 Other chronic pain; M19.071 Primary osteoarthritis, right ankle and foot; Z20.828 Contact with and (suspected) exposure to other viral communicable diseases; E88.09 Other disorders of plasma-protein metabolism, not elsewhere classified; F41.9 Anxiety disorder, unspecified; R62.7 Adult failure to thrive; Z79.891 Long term (current) use of opiate analgesic; Z82.49 Family history of ischemic heart disease and other diseases of the circulatory system; Z85.118 Personal history of other malignant neoplasm of bronchus and lung
CPT/HCPCS: 36415; 71045; 73700; 80048; 80053; 80307; 81001; 82550; 82728; 83605; 83735; 83880; 84443; 84484; 84550; 85025; 85379; 85652; 86141; 87040; 87070; 87086; 87205; 87426; 93005; 93926; 94640; 96365; 96372; 96375; G0378; J1956; J3490

== ENCOUNTER 2020-09-12 13:16 | Emergency (ER) | payer BC ==
[~2020-09-12] VITALS: Ht 180.3 cm; Wt 40.8 kg
[2020-09-12 13:59] VITALS: BP 113/59
[2020-09-12 21:04] LABS: Basophils # (auto) 0 10 ^3/uL (0-0.2); Basophils % (auto) 0.2 % (0.0-2.0); Eosinophils # (auto) 0.1 10 ^3/uL (0-0.8); Eosinophils % (auto) 2.2 % (0.0-7.0); Hematocrit 41.8 % (41.0-53.0); Hemoglobin 13.7 g/dL (13.5-17.5); Lymphocytes # (auto) 0.8 10 ^3/uL (0.4-5.4); Lymphocytes % (auto) 16.2 % (10.0-50.0); Mean Corpuscular Hemoglobin 30.1 pg (28.0-32.0); Mean Corpuscular Hgb Conc. 32.7 g/dL (32.0-36.0); Mean Corpuscular Volume 92.1 fL (80.0-100.0); Monocytes # (auto) 0.5 10 ^3/uL (0-1.3); Monocytes % (auto) 10.5 % (0.0-12.0); Neutrophils # (auto) 3.5 10 ^3/uL (1.6-8.6); Neutrophils % (auto) 70.9 % (37.0-80.0); Nucleated Red Blood Cells % 0.5 %; Platelet Count (auto) 224 10^3/uL (140-450); Red Blood Cells 4.54 10^6/uL (4.5-5.90); Red Cell Distribution Width 16.2 % (11.8-14.3)
[2020-09-12 21:18] LABS: Albumin 3.6 g/dL (3.4-5.0); Calcium 9.1 mg/dL (8.5-10.1); Potassium 4.3 mmol/L (3.5-5.1)
[2020-09-12 21:23] LABS: BUN/Creatinine Ratio 30.5; Bilirubin, Total 0.4 mg/dL (0.2-1.0)
== END 2020-09-12 21:14 | disposition home or self-care (01) ==
LOC: ER 13:16
DX: M62.838 Other muscle spasm (principal); J44.9 Chronic obstructive pulmonary disease, unspecified; E78.5 Hyperlipidemia, unspecified; I10 Essential (primary) hypertension; F17.210 Nicotine dependence, cigarettes, uncomplicated; Z79.899 Other long term (current) drug therapy
CPT/HCPCS: 36415; 80053; 82962; 85025; 93005

== ENCOUNTER 2020-09-15 13:57 | Inpatient (IN) | payer BC ==
[~2020-09-15] VITALS: Ht 172.7 cm; Wt 41.5 kg
[2020-09-15] MEDS ORDERED: FUROSEMIDE 40 MG/4 ML VIAL IV ONE (14:30)
[2020-09-15 15:13] LABS: Basophils # (auto) 0 10 ^3/uL (0-0.2); Basophils % (auto) 0.1 % (0.0-2.0); Eosinophils # (auto) 0 10 ^3/uL (0-0.8); Eosinophils % (auto) 0.2 % (0.0-7.0); Hematocrit 39.8 % (41.0-53.0); Hemoglobin 12.8 g/dL (13.5-17.5); Lymphocytes # (auto) 0.6 10 ^3/uL (0.4-5.4); Lymphocytes % (auto) 7.4 % (10.0-50.0); Mean Corpuscular Hemoglobin 29.8 pg (28.0-32.0); Mean Corpuscular Hgb Conc. 32.2 g/dL (32.0-36.0); Mean Corpuscular Volume 92.6 fL (80.0-100.0); Monocytes # (auto) 0.7 10 ^3/uL (0-1.3); Monocytes % (auto) 7.9 % (0.0-12.0); Neutrophils # (auto) 7.1 10 ^3/uL (1.6-8.6); Neutrophils % (auto) 84.4 % (37.0-80.0); Nucleated Red Blood Cells % 0.1 %; Platelet Count (auto) 230 10^3/uL (140-450); Red Cell Distribution Width 15.6 % (11.8-14.3); White Blood Cell 8.4 10^3/uL (4.4-10.8)
[2020-09-15 15:31] LABS: Anion Gap 2 (5-15); Blood Urea Nitrogen 27 mg/dL (7-18); Calcium 8.9 mg/dL (8.5-10.1); Carbon Dioxide 31 mmol/L (21-32); Chloride 107 mmol/L (98-107); Glucose 95 mg/dL (74-106); Sodium 140 mmol/L (136-145)
[2020-09-15 15:35] LABS: Alanine Aminotransferase 14 U/L (16-61); Alkaline Phosphatase 165 U/L (45-117); Aspartate Aminotransferase 15 U/L (15-37); Bilirubin, Total 0.7 mg/dL (0.2-1.0); GFR African American 83 mL/min; GFR Non-African American 69 mL/min
[2020-09-15] MEDS ORDERED: NITROGLYCERIN 0.4 MG SL TAB SL PRN (16:30)
[2020-09-15] MEDS ORDERED: ONDANSETRON HCL 4 MG/2 ML VIAL IV PRN (16:30)
[2020-09-15] MEDS ORDERED: DOCUSATE CALCIUM 240 MG CAP PO PRN (16:30)
[2020-09-15] MEDS ORDERED: hydrALAZINE HCL 20 MG/ML VL IV PRN (16:30)
[2020-09-15] MEDS ORDERED: MORPHINE SULF INJ 2 MG/ML SYRINGE 1ML IV PRN (16:30)
[2020-09-15] MEDS: BUDESONIDE (INHALATION) 0.5 MG/2 ML NEB NEB SCH (18:20)
[2020-09-15] MEDS: RIVAROXABAN 15 MG TAB PO SCH (18:50)
[2020-09-15 19:01] LABS: Urine Bacteria FEW /hpf (None Seen); Urine Blood Negative /uL (Negative); Urine Hyaline Cast FEW /lpf (0 - 2); Urine Mucus FEW (None Seen); Urine Specific Gravity 1.009 (1.001-1.035); Urine WBC <1 /hpf (0 - 3)
[2020-09-15 21:30] VITALS: BP 156/93
[2020-09-15 22:00] VITALS: BP 156/93
[2020-09-15] MEDS: MIRTAZAPINE 7.5 MG PO SCH (22:00)
[2020-09-15] MEDS: CARVEDILOL 12.5 MG TAB PO SCH (22:22)
[2020-09-15] MEDS: PRAVASTATIN SODIUM 20 MG TAB PO SCH (22:22)
[2020-09-15] MEDS: SACUBITRIL-VALSARTAN 24mg/26mg TAB PO SCH (22:22)
[2020-09-15 22:47] VITALS: BP 156/93
--- NOTE | 2020-09-16 03:00 | NUR ---
Security Cigarette smell coming from patient's room. Entered pt's room with Al odell rn. Asked patient if he had smoked, stated no. Al asked patient again, patient stated "maybe just one puff". Requested patient hand over cigarette pack and tooth cutter spur but patient refused. Security called up to retrieve patient's cigarettes. Security stated that we will hold them until he can go downstairs to smoke. Cigarette pack with one cigarette obtained, along with tooth cutter spur. Belongings placed in biohazard bag with patient label. Patient awake and alert. Coughing and very SOB. Educated on importance of smoking cessation due to comoribilites. Stated this coughing "has nothing to do with the smoking". Pt resting bed with call trivedi at bedside and bed alarm on. Will continue to monitor changes q1hr and PRN.
[2020-09-16 05:00] VITALS: BP 93/58
[2020-09-16 05:01] LABS: Basophils # (auto) 0 10 ^3/uL (0-0.2); Basophils % (auto) 0.2 % (0.0-2.0); Eosinophils # (auto) 0 10 ^3/uL (0-0.8); Eosinophils % (auto) 0.6 % (0.0-7.0); Hematocrit 36.4 % (41.0-53.0); Hemoglobin 11.9 g/dL (13.5-17.5); Lymphocytes # (auto) 0.6 10 ^3/uL (0.4-5.4); Lymphocytes % (auto) 8.7 % (10.0-50.0); Mean Corpuscular Hemoglobin 30.1 pg (28.0-32.0); Mean Corpuscular Hgb Conc. 32.6 g/dL (32.0-36.0); Mean Corpuscular Volume 92.4 fL (80.0-100.0); Monocytes # (auto) 0.5 10 ^3/uL (0-1.3); Neutrophils # (auto) 5.4 10 ^3/uL (1.6-8.6); Neutrophils % (auto) 82.5 % (37.0-80.0); Nucleated Red Blood Cells % 0.1 %; Platelet Count (auto) 241 10^3/uL (140-450); Red Blood Cells 3.94 10^6/uL (4.5-5.90); Red Cell Distribution Width 15.8 % (11.8-14.3); White Blood Cell 6.6 10^3/uL (4.4-10.8)
[2020-09-16 05:29] LABS: Albumin 2.6 g/dL (3.4-5.0); Calcium 8.4 mg/dL (8.5-10.1); Potassium 3.5 mmol/L (3.5-5.1)
[2020-09-16 05:32] LABS: BUN/Creatinine Ratio 29.6; Bilirubin, Total 0.6 mg/dL (0.2-1.0)
[2020-09-16] MEDS: BUDESONIDE (INHALATION) 0.5 MG/2 ML NEB NEB SCH ×2 (06:36→22:12)
[2020-09-16] MEDS: ALBUTEROL SULF 2.5 MG/0.5ML(0.5%) NEB SOLN NEB PRN ×2 (06:36→14:16)
--- NOTE | 2020-09-16 07:28 | NUR ---
Opening Shift Note Assumed care of patient, awake and alert. No S/S of distress/SOB or pain. Instructed on POC and to call for assist PRN. Bed locked in lowest position, side rails up x2, call light within reach. Safety precautions in place. Will continue to monitor for changes Q1hr and PRN
[2020-09-16 09:00] VITALS: BP 93/44
[2020-09-16] MEDS: PANTOPRAZOLE 40 MG/10 ML VIAL INJ IV SCH (09:04)
[2020-09-16] MEDS: CARVEDILOL 12.5 MG TAB PO SCH ×2 (09:04→21:47)
[2020-09-16] MEDS: SACUBITRIL-VALSARTAN 24mg/26mg TAB PO SCH ×2 (09:05→21:48)
[2020-09-16] MEDS: MULTIPLE VITAMIN TAB PO SCH (09:06)
--- NOTE | 2020-09-16 09:24 | NUR ---
assisted patient from bedside commode to side of bed, small BM noted in BSC, pt out of breath stated "its so hard to breathe, now take me downstairs that was the deal that was the deal!" asked pt what the "deal" is, per pt night nurse took his cigarettes and stated this nurse would take him to go smoke, inquired with pt if he signed the AMA form to smoke, educated pt that he is currently out of breath and smoking is not recommended, per pt "i don't give a damn about that paper take me to smoke!" educated pt on hospital policy against smoking, redirected pt to focus on taking deep breaths
--- NOTE | 2020-09-16 09:50 | NUR ---
walked into room found pt sitting on bedside commode in room restroom pt has bm on the lid of the bedside commode assisted pt to transfer to toilet asked pt why he did not use bedside commode "now i need oxygen take me to my oxygen" cleaned pt up, took pt to sit bedside placed oxygen on pt
[2020-09-16] MEDS ORDERED: ENOXAPARIN SOD 30 MG/0.3 ML SYRINGE SC SCH (10:00)
[2020-09-16] MEDS ORDERED: FUROSEMIDE 20 MG TAB PO SCH (10:00)
--- NOTE | 2020-09-16 10:16 | NUR ---
pt signed ama to smoke form placed in chart, pt in wheelchair going down to smoke, pt cigarettes given to pt risks explained pt is extremely short of breath without supplemental o2
--- NOTE | 2020-09-16 11:01 | NUR ---
paged for patient to return to room
--- NOTE | 2020-09-16 11:18 | NUR ---
went downstairs to look for patient, per pbx security stated he was in smoking area, did not find patient, spoke to security they will retrieve him and bring him to room
--- NOTE | 2020-09-16 11:23 | NUR ---
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
[2020-09-16] MEDS ORDERED: cefTRIAXone 1GM/50ML D5W 50 ML IV ONE (11:45)
[2020-09-16] MEDS ORDERED: levoFLOXacin 500 MG TAB PO ONE (11:45)
--- NOTE | 2020-09-16 11:46 | NUR ---
md guzman rounded on patient discussed plan for discharge
--- NOTE | 2020-09-16 12:25 | NUR ---
covid swab obtained walked to lab
--- NOTE | 2020-09-16 12:34 | NUR ---
IV removal IV DC'd with clean sterile technique, catheter fully intact. Pressure dressing applied to site. Patient tolerated well. NOTE:
--- NOTE | 2020-09-16 12:34 | NUR ---
IV insertion IV access obtained, via clean sterile technique by inserting 20 gauge catheter at after attempt(s). IV secured properly. No trauma to site. Patient tolerated well. NOTE:
[2020-09-16 13:00] VITALS: BP 101/39
--- NOTE | 2020-09-16 13:48 | NUR ---
ADVISED PT THAT NUMBER LISTED FOR [employer] HIS FRIEND IS OUT OF SERVICE PT STATED THAT ADDRESS LISTED BELOW IS JOINT OWNED BY HIM AND HIS FRIEND [id number] [place]
--- NOTE | 2020-09-16 14:40 | NUR ---
CALLED MD LIVING[place]ON TO REPORT PT HAVING PAIN PER PT "CAN I HAVE THE STUFF THAT GOES ON MY SKIN AND EASES THE PAIN AWAY" PER "DO NOTHING, NO PAIN MEDICATION" CLARIFIED WITH MD THAT PT IS REQUESTING A TOPICAL OPTION NOT PAIN PILLS, PER "DO NOTHING"
[2020-09-16 16:38] VITALS: BP 100/67
[2020-09-16] MEDS: FUROSEMIDE 40 MG/4 ML VIAL IV SCH (17:07)
[2020-09-16] MEDS: RIVAROXABAN 15 MG TAB PO SCH (17:07)
--- NOTE | 2020-09-16 18:33 | NUR ---
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
[2020-09-16] MEDS: MIRTAZAPINE 7.5 MG PO SCH (21:47)
[2020-09-16] MEDS: PRAVASTATIN SODIUM 20 MG TAB PO SCH (21:48)
[2020-09-16 22:00] VITALS: BP 103/46
[2020-09-17 05:00] VITALS: BP 115/62
[2020-09-17] MEDS: FUROSEMIDE 40 MG/4 ML VIAL IV SCH ×2 (06:22→17:03)
[2020-09-17] MEDS: ALBUTEROL SULF 2.5 MG/0.5ML(0.5%) NEB SOLN NEB PRN ×2 (07:31→22:34)
[2020-09-17] MEDS: BUDESONIDE (INHALATION) 0.5 MG/2 ML NEB NEB SCH ×2 (07:31→22:34)
--- NOTE | 2020-09-17 08:00 | NUR ---
Received pt resting in bed, call light within reach, no pain noted or reported, pt educated to use call light for assistance. Will continue to monitor pt.
[2020-09-17] MEDS: PANTOPRAZOLE 40 MG/10 ML VIAL INJ IV SCH (08:44)
[2020-09-17] MEDS: cefTRIAXone 1GM/50ML D5W 50 ML IV SCH (08:44)
[2020-09-17] MEDS: MULTIPLE VITAMIN TAB PO SCH (08:45)
[2020-09-17] MEDS: CARVEDILOL 12.5 MG TAB PO SCH ×2 (08:45→21:55)
[2020-09-17] MEDS: SACUBITRIL-VALSARTAN 24mg/26mg TAB PO SCH ×2 (08:45→21:53)
[2020-09-17] MEDS: levoFLOXacin 500 MG TAB PO SCH (08:45)
[2020-09-17 09:29] VITALS: BP 115/54
[2020-09-17] MEDS ORDERED: PNEUMOCOCCAL VACC POLYS 25 MCG/0.5 ML VIAL IM SCH (10:00)
--- NOTE | 2020-09-17 10:41 | NUR ---
Dr. Lombardi at bed side, doctor discussed plan of care with pt, pt reported to have pain to rt leg and foot, orders received for [place] 5/235 mg po Q6hr prn pain.
--- NOTE | 2020-09-17 10:41 | NUR ---
Dr. Lombardi informed regarding holding the schedule Coreg 12.5 mg at 1000 due to low HR 54.
[2020-09-17] MEDS: HYDROcodone-ACET 5/325MG TAB PO PRN ×2 (10:53→17:04)
[2020-09-17 12:38] VITALS: BP 108/46
--- NOTE | 2020-09-17 14:03 | NUR ---
Pt got on wheelchair to go out of the hospital, pt stated that he will go out for fresh air, pt educated by bed side nurse and by charge nurse not to smoke since he has the oxygen on, pt verbalized understanding and stated that he knows that the oxygen is highly flammable and stated that he has no more cigarettes and will not go out to smoke.
[2020-09-17 16:43] VITALS: BP 112/41
[2020-09-17] MEDS: RIVAROXABAN 15 MG TAB PO SCH (17:03)
--- NOTE | 2020-09-17 19:15 | NUR ---
Opening Shift Note Assumed care of patient, awake and alert. No S/S of distress/SOB or pain. Bed is locked in lowest position with call light within reach. Instructed on POC and to call for assist PRN, will continue to monitor for changes Q1hr and PRN.
[2020-09-17] MEDS: PRAVASTATIN SODIUM 20 MG TAB PO SCH (21:53)
[2020-09-17] MEDS: MIRTAZAPINE 7.5 MG PO SCH (22:00)
[2020-09-18] VITALS (7 sets, daily range): BP systolic 101–120; BP diastolic 38–58
[2020-09-18] MEDS: HYDROcodone-ACET 5/325MG TAB PO PRN ×2 (05:20→22:21)
[2020-09-18] MEDS: FUROSEMIDE 40 MG/4 ML VIAL IV SCH ×2 (06:28→18:34)
[2020-09-18] MEDS: PANTOPRAZOLE 40 MG/10 ML VIAL INJ IV SCH (09:18)
[2020-09-18] MEDS: cefTRIAXone 1GM/50ML D5W 50 ML IV SCH (09:18)
[2020-09-18] MEDS: SACUBITRIL-VALSARTAN 24mg/26mg TAB PO SCH ×2 (09:18→22:00)
[2020-09-18] MEDS: MULTIPLE VITAMIN TAB PO SCH (09:19)
[2020-09-18] MEDS: CARVEDILOL 12.5 MG TAB PO SCH ×2 (09:19→22:02)
[2020-09-18] MEDS: levoFLOXacin 500 MG TAB PO SCH (09:19)
[2020-09-18] MEDS: ALBUTEROL SULF 2.5 MG/0.5ML(0.5%) NEB SOLN NEB PRN ×2 (10:52→19:50)
[2020-09-18] MEDS: BUDESONIDE (INHALATION) 0.5 MG/2 ML NEB NEB SCH ×2 (10:52→19:50)
--- NOTE | 2020-09-18 11:31 | NUR ---
PATIENT CAUGHT SMOKING IN ROOM PATIENT EDUCATED HE CAN NOT SMOKE IN THE HOSPITAL ESPECIALLY NEXT TO OXYGEN PATIENT VERBALIZED UNDERSTANDING. CIGARETTES REMOVED TRYING TO USE FAN TO BLOW SMOKE OUT OF THE ROOM. WILL CONTINUE TO MONITOR
--- NOTE | 2020-09-18 11:53 | NUR ---
AMA TO SMOKE PATIENT WENT OUTSIDE VIA WHEELCHAIR TO SMOKE. PATIENT GIVEN A BLANKET AND EDUCATED ON RISKS OF BEING OFF OXYGEN AND NEED TO QUIT SMOKING. PATIENT VERBALIZED UNDERSTANDING BUT CONTINUED TO DEMAND TO BE TAKEN OUTSIDE. PATIENT EDUCATED OF COLD WEATHER, PATIENT VERBALIZED UNDERSTANDING BUT CONTINUED TO DEMAND TO BE WHEELED OUTSIDE. WILL CONTINUE TO MONITOR
--- NOTE | 2020-09-18 15:32 | NUR ---
assessment re: ss consult Patient is an 85 year-old male who is alert and oriented. Prior to admission patient lived at [facility]. Patients emergency contact is Kyle [phone] who is also his POA. Per patient he has a wheelchair for home use. Patient he is on service with [facility] and would like to resume service with agency. I Informed patient there is a social service consult for needing placement. Per patient he did not like [facility]. Per patient he forgot he was at [facility] for a few days prior to admission. Patient agrees to return to [facility] on discharge. I have notified [facility] hospice Wendy. Per Wendy she is contacting her boss to see if she can re-admit patient for service. Will follow up with Wendy. Addendum: 09/18/20 at 1536 by Ree NASH Amended: Links added.
[2020-09-18] MEDS: RIVAROXABAN 15 MG TAB PO SCH (18:34)
[2020-09-18] MEDS: IPRATROPIUM BROM 0.5 MG/2.5ML INH SOL NEB PRN (19:50)
[2020-09-18] MEDS: MIRTAZAPINE 7.5 MG PO SCH (22:00)
[2020-09-18] MEDS: ATORVASTATIN 20 MG TAB PO SCH (22:00)
[2020-09-18] MEDS: DOXYCYCLINE 100 MG TAB/CAP PO SCH (22:00)
[2020-09-18] MEDS: PRAVASTATIN SODIUM 20 MG TAB PO SCH (22:00)
--- NOTE | 2020-09-18 23:57 | NUR ---
Hospitalist Paged RE: Low Blood Pressure Hospitalist paged regarding low blood pressure. BP: 75/63, HR: 64. Patient has a history of CHF and denies dizziness or headache at this time.
[2020-09-19] VITALS (57 sets, daily range): BP systolic 70–137; BP diastolic 31–96
--- NOTE | 2020-09-19 00:42 | NUR ---
Hospitalist Returned Call RE: Low Blood Pressure Hospitalist returned call regarding low blood pressure. BUILDING ILLUMINATING ENGINEER Alex notified that patient's blood pressure is 75/63 and heart rate is 64. Orders received, read back, and verified (see EMR). Will carry out order as received.
[2020-09-19] MEDS ORDERED: ALBUMIN 5% 250 ML IV ONE (00:45)
--- NOTE | 2020-09-19 01:30 | NUR ---
IV Insertion IV access obtained, via clean sterile technique by inserting 22 gauge catheter at right forearm after 3 attempts. IV secured properly. No trauma to site. Patient tolerated well.
--- NOTE | 2020-09-19 04:59 | NUR ---
Hospitalist Paged RE: Low Blood Pressure Hospitalist paged regarding low blood pressure: BP: 71/33, HR: 71 post albumin administration. Awaiting call back.
--- NOTE | 2020-09-19 05:08 | NUR ---
Hospitalist Returned Call RE: Low Blood Pressure Hospitalist returned call regarding low blood pressure. HSE MANAGER Alex notified of patient's blood pressure 71/33 and heart rate 71. Orders received, read back, and verified (see EMR). Will carry out order as received.
[2020-09-19] MEDS: NOREPINEPHRINE 8 MG/250ML KIT 250 ML IV SCH ×2 (05:15→12:30)
--- NOTE | 2020-09-19 05:16 | NUR ---
Received report from [facility], patient being transferred for BP of 71/35 MD order to start Levophed.
--- NOTE | 2020-09-19 05:24 | NUR ---
Report Given Report given to Tiffany SALOMON.
--- NOTE | 2020-09-19 05:50 | NUR ---
Patient Transferred to Room 266 Patient transferred to room 266 with all personal belongings. No sign/symptoms of distress noted upon departure.
--- NOTE | 2020-09-19 05:51 | NUR ---
Patient arrived to unit patient is alert and oriented patient blood pressure is 107/52 5 minute repeat BP is 116/44 based on these bp Levophed was not started.
[2020-09-19] MEDS: FUROSEMIDE 40 MG/4 ML VIAL IV SCH ×2 (06:00→18:28)
--- NOTE | 2020-09-19 06:34 | NUR ---
Lasix Held Patient blood pressure 107/52 Lasix held at this time due to low BP
--- NOTE | 2020-09-19 07:10 | NUR ---
Assumed care of pt., report received per AIME Allen. No distress noted, pt. attached to monitor and reading sinus rhythm, VSS, will cont.to monitor for any changes, assessment ongoing.
[2020-09-19] MEDS: HYDROcodone-ACET 5/325MG TAB PO PRN (07:25)
[2020-09-19] MEDS: cefTRIAXone 1GM/50ML D5W 50 ML IV SCH (09:06)
[2020-09-19] MEDS: PANTOPRAZOLE 40 MG/10 ML VIAL INJ IV SCH (09:44)
[2020-09-19] MEDS ORDERED: DOCUSATE SOD 100 MG CAP PO PRN (09:45)
[2020-09-19] MEDS: SACUBITRIL-VALSARTAN 24mg/26mg TAB PO SCH ×2 (09:45→21:58)
[2020-09-19] MEDS: CARVEDILOL 12.5 MG TAB PO SCH (09:45)
[2020-09-19] MEDS: MULTIPLE VITAMIN TAB PO SCH (09:45)
[2020-09-19] MEDS: DOXYCYCLINE 100 MG TAB/CAP PO SCH ×2 (09:47→22:16)
[2020-09-19] MEDS: BUDESONIDE (INHALATION) 0.5 MG/2 ML NEB NEB SCH ×2 (10:14→21:35)
--- NOTE | 2020-09-19 10:40 | NUR ---
pt. pressures noted soft in 80's, Dr. Lombardi notified, orders to keep pt. in MATTHIAS, instructional design specialist aware, call trivedi in pt. reach, assessment ongoing.
--- NOTE | 2020-09-19 12:20 | NUR ---
PRESSURES SBP has been ranging 65-88 with MAPs 45-56. Patient asymptomatic, alert and responding appropriately. Attempted to lay patient flat, but patient refused, complaining of pain to right leg. Notified Dr Antonietta Lombardi. Orders received to restart Levophed drip. Bedside RNFelix made aware.
--- NOTE | 2020-09-19 12:22 | NUR ---
Nutrition Assessment Est energy needs [id number] kcal (20-25 kcal/kg IBW 70kg) Est protein needs 56-70g (0.8-1g/kg IBW 70kg) Will reassess prn. Addendum: 09/19/20 at [address] Amended: Links added.
--- NOTE | 2020-09-19 17:45 | NUR ---
pt. c/o continued constipation, Dr. Lombardi off now, SHERIN Marie notified, new orders received and will implement and monitor for effectiveness, call trivedi in reach, assessment ongoing.
[2020-09-19] MEDS ORDERED: LACTULOSE 20Gm/30ML SOLN PO PRN (18:00)
[2020-09-19] MEDS: RIVAROXABAN 15 MG TAB PO SCH (18:28)
--- NOTE | 2020-09-19 19:05 | NUR ---
SBAR report given to AIME Negrete. No distress noted, pt. care assumed per NOC RN, day shift RN relinquished care and signed off.
--- NOTE | 2020-09-19 19:30 | NUR ---
PATIENT REMOVED FROM THE BEDPAN. NO BM YET . DID VOID IN BEDPAN. NOW VOIDING IN URINAL.
--- NOTE | 2020-09-19 20:00 | NUR ---
ADMITTED ON 09/15/20 TO THE FLOOR. HYPOTENSION BROUGHT HIM TO ICU STATUS. REQUIRED LEVOPHED. ADMISSION DIAGNOSIS COPD WITH DYSPNEA. ON 4LNP. WANTS TO GO HOME TOMORROW. ABDOMEN IS FLAT. POOR APPETITE. VOIDS. HAD LACTULOSE. AWAITING HIS FEELING TO HAVE A BM. LEVOPHED AT 1 MCG. NO EDEMA.
--- NOTE | 2020-09-19 20:00 | NUR ---
ADMITTED ON 09/06/20 WITH WEAKNESS, COUGH, FEVER AND ELEVATED BLOOD SUGAR. ON 70%FIO2 WITH 70% FLOW. REFUSING TO PRONE OR USE BIPAP. SITTING UP IN CHAIR. NSR 95. RR 21. Addendum: 09/19/20 at 2011 by JERI FINE RN WRONG CHART
--- NOTE | 2020-09-19 20:30 | NUR ---
ALERT. ORIENTED. SPEECH CLEAR. PUPILS 4 AND REACTIVE. LOSES HIS WORDS OFTEN. HAS BEEN ON THE CALL LIGHT 6 TIMES SINCE 1899. NEEDS THOUGHT DIRECTION. LUNGS CLEAR AND DIMINISHED. ABDOMEN IS FLAT. STATES THAT HE HAS A LITTLE NAUSEA AND YET REFUSES ZOFRAN. RADIAL PULSES STRONG. PEDAL PULSES VERY WEAK. FEET MODERATELY WARM. IN TAKING HIS SOCKS OFF, HE SCREAMED WHEN I TOUCHED HIS ANKLES. STATED THAT HE DOES NOT WALK. HE PIVOTS INTO A WHEELCHAIR AT HOME. MOVES WELL IN BED. USING THE URINAL. DENIES PAIN. HAS A SINUS ARRYTHMIA. HR SLOWS DOWN AND SPEEDS UP CONTINUOUSLY. COCCYX IS RED. SKIN IS THIN AND FRAGILE. HAS 2 PERIPHERAL IVS. 22G IN LEFT FOREARM AND A 20G IN HIS RIGHT UPPER ARM. LEVOPHED 1 MCG. SYSTOLIC FOR ME SINCE 1899 HAS RANGED BETWEEN 89 AND 125.
--- NOTE | 2020-09-19 21:45 | NUR ---
CALLED OUT SAYING "I FELL" AND HE WAS FOUND IN BED. HE STATED " I'M READY TO HAVE A BOWEL MOVEMENT". PLACED ON BEDPAN. HE HAD A LARGE SOFT FORMED BROWN STOOL.
[2020-09-19] MEDS: CARVEDILOL 3.125 MG TAB PO SCH (21:57)
[2020-09-19] MEDS: MIRTAZAPINE 7.5 MG PO SCH (22:00)
[2020-09-19] MEDS: ATORVASTATIN 20 MG TAB PO SCH (22:17)
[2020-09-19] MEDS: LORazepam 0.5 MG TAB PO PRN (22:17)
[2020-09-19] MEDS: PRAVASTATIN SODIUM 20 MG TAB PO SCH (22:17)
--- NOTE | 2020-09-19 23:00 | NUR ---
10 + CALL NAJERA LIGHTS FOR DIFFERENT CONCERNS. SOMETIMES HE JUST CALLS OUT.
--- NOTE | 2020-09-19 23:50 | NUR ---
DESATURATION TO 88% WHEN ASLEEP . INCREASED THE NASAL CANNULA TO 5L. SBP DROPPED INTO THE 80S. INCREASED THE LEVOPHED PER PROTOCOL TO 3 MCG.
--- NOTE | 2020-09-19 23:56 | NUR ---
RT HERE. AWARE OF THE INCREASE OF OXYGEN TO 5LNP.
[2020-09-20] VITALS (88 sets, daily range): BP systolic 52–137; BP diastolic 28–99
--- NOTE | 2020-09-20 | NUR ---
THERE ARE TIMES WHEN YOU TOUCH HIM , HE SAYS NOTHING AND OTHER TIMES HE SCREAMS LIKE YOU'RE REALLY HURTING HIM. I DON'T KNOW WHAT TO MAKE OF IT YET. ADDED ANOTHER PAIR OF SOCKS. WHEN HE IS QUIET AND NOT MOVING HIS O2 SAT IS 94%. THE INCREASE IN LEVOPHED HAS KEPT HIS SBP > 95.
--- NOTE | 2020-09-20 01:58 | NUR ---
SPILLED URINAL IN BED/GOWN. FULL LINEN CHANGE AND FRANKY CARE DONE.
--- NOTE | 2020-09-20 04:00 | NUR ---
CALLING OUT. ASKED "WHEN ARE WE GOING TO TAKE OFF MY CLOTHES SO I CAN GO HOME?" REORIENTED PATIENT TO TIME AND CONDITIONS THAT WILL ALLOW HIM TO GO HOME. DECREASED O2 TO 4LNP. O2 SAT WAS 98%. LUNGS CLEAR AND DIMINISHED
--- NOTE | 2020-09-20 05:32 | NUR ---
LABILE BLOOD PRESSURE.
[2020-09-20] MEDS: FUROSEMIDE 40 MG/4 ML VIAL IV SCH ×2 (05:56→18:52)
--- NOTE | 2020-09-20 06:00 | NUR ---
WAKES UP MOANS, COUGHS.
--- NOTE | 2020-09-20 09:26 | NUR ---
Resumed care at 0725, orders reviewed and ongoing assessments being done. Being treated for multiple problems. Upon arrival in bed a sleep. Easily awaken. Oriented and able to make needs known. Demands a lot of attention. Constantly shouts out and does not use the call light. Reviewed plan of care and instructed on use of call light. Remains on Levophed gtt for hemodynamic stability. Infusing to right upper arm, no s/s of infiltration. Dr. Lombardi rounded at 0901. Made him aware that prior nurse, Penelope SALOMON, held scheduled Lasix, Entresto and Coreg due to low BP and unable to wean off Levophed gtt. Per Dr. Lombardi, hold for now. Offered breakfast at 0820, declined and wanted to sleep. Reviewed plan of care.
[2020-09-20] MEDS: CARVEDILOL 3.125 MG TAB PO SCH ×2 (10:00→20:24)
[2020-09-20] MEDS: SACUBITRIL-VALSARTAN 24mg/26mg TAB PO SCH ×2 (10:00→20:24)
[2020-09-20] MEDS: MULTIPLE VITAMIN TAB PO SCH (10:05)
[2020-09-20] MEDS: DOXYCYCLINE 100 MG TAB/CAP PO SCH ×2 (10:05→20:24)
[2020-09-20] MEDS: PANTOPRAZOLE 40 MG/10 ML VIAL INJ IV SCH (11:30)
[2020-09-20] MEDS: cefTRIAXone 1GM/50ML D5W 50 ML IV SCH (11:30)
[2020-09-20] MEDS: NOREPINEPHRINE 8 MG/250ML KIT 250 ML IV SCH (12:30)
--- NOTE | 2020-09-20 14:39 | NUR ---
MIDLINE ATTEMPTED MIDLINE PLACEMENT TO PATIENTS LEFT UPPER ARM. PATIENT COUGHING AND MOVING DURING PLACEMENT AND BROKE STERILE FIELD BY MOVING HIS LEFT ARM TO CATCH SPUTUM WITH A TISSUE. ATTEMPTED 3 TIMES. PATIENT HAS [address] AT THIS TIME. PRIMARY RN ROSALINA AWARE OF UNSUCCESSFUL PLACEMENT.
--- NOTE | 2020-09-20 15:10 | NUR ---
Poor oral intake, only eating a few bites of meal, no appetite. Reinforced importance of nutrition for healing. IV insertion ( only one IV present and Levophed running) At first declining insertion. Made him aware that he has scheduled medication that needs to be administered via IV. IV access obtained, via clean sterile technique by inserting gauge 22 catheter at left lower arm after 1 attempt. IV secured properly. No trauma to site. Patient tolerated procedure well. Missed medications given post IV access. Obtained order for Midline insertion. Melissa SALOMON was in and attempted to insert a Midline, unsuccessful.
[2020-09-20] MEDS: BUDESONIDE (INHALATION) 0.5 MG/2 ML NEB NEB SCH ×2 (15:59→22:00)
[2020-09-20] MEDS: RIVAROXABAN 15 MG TAB PO SCH (18:20)
[2020-09-20] MEDS: HYDROcodone-ACET 5/325MG TAB PO PRN (18:20)
--- NOTE | 2020-09-20 18:25 | NUR ---
Call out to Dr. Truong. Would like to discuss and review cardiac medications. Has converted to AFIB with a rate of 80's-110's. Remains on Levophed gtt for BP support.
[2020-09-20] MEDS: MIRTAZAPINE 7.5 MG PO SCH (19:34)
[2020-09-20] MEDS: ATORVASTATIN 20 MG TAB PO SCH (20:24)
[2020-09-20] MEDS: LORazepam 0.5 MG TAB PO PRN (20:25)
[2020-09-20] MEDS: PRAVASTATIN SODIUM 20 MG TAB PO SCH (20:25)
--- NOTE | 2020-09-20 22:10 | NUR ---
PT WILL CONTINUE SLEEPING AT THIS TIME. NO TX ADMINISTERED. NO RESPIRATORY DISTRESS NOTED. SPO2 98% ON 3L NC, HR 91, RR 17. WILL CONTINUE WITH NEXT SCHEDULED TX.
[2020-09-21] VITALS (29 sets, daily range): BP systolic 74–148; BP diastolic 33–76
[2020-09-21] MEDS: FUROSEMIDE 40 MG/4 ML VIAL IV SCH (03:53)
--- NOTE | 2020-09-21 06:45 | NUR ---
Hospitalist paged. Awaiting response
--- NOTE | 2020-09-21 07:00 | NUR ---
Report from AIME Melendez Patient awake in bed. Patient AOx4, moves all extremities, uses wheelchair. Patient in no signs of distress. Patient downgraded to MATTHIAS after Levophed was D/C. Patient BP 94/71 HR 109 RR 21 SPO2 97%. patient wishes to get dressed to go home. RN redirected and discussed with patient plan was to wait for physician to round and then discuss. Patient reports 0/10 pain, presentation is irritated and restless. Patient was Afib during night supervisor HR 64
[2020-09-21] MEDS: BUDESONIDE (INHALATION) 0.5 MG/2 ML NEB NEB SCH ×2 (08:19→19:25)
[2020-09-21] MEDS: cefTRIAXone 1GM/50ML D5W 50 ML IV SCH (08:43)
--- NOTE | 2020-09-21 08:57 | NUR ---
RN bedside, patient is in idioventricular rhythym of 71, patient arousable and BP 102/48.
--- NOTE | 2020-09-21 09:00 | NUR ---
Dr. Lombardi bedside. New orders to downgrade patient to Telemetry.
--- NOTE | 2020-09-21 09:06 | NUR ---
Dr. Lombardi bedside. Updated on idioventricular rhythm, new orders for BMP +mg +phos. Downgrade to telemetry. D/C coreg and lasix.
[2020-09-21 09:37] LABS: Basophils # (auto) 0 10 ^3/uL (0-0.2); Basophils % (auto) 0.2 % (0.0-2.0); Eosinophils # (auto) 0.1 10 ^3/uL (0-0.8); Eosinophils % (auto) 1.3 % (0.0-7.0); Hematocrit 42.9 % (41.0-53.0); Hemoglobin 14.1 g/dL (13.5-17.5); Lymphocytes # (auto) 1.2 10 ^3/uL (0.4-5.4); Lymphocytes % (auto) 14.6 % (10.0-50.0); Mean Corpuscular Hemoglobin 29.8 pg (28.0-32.0); Mean Corpuscular Hgb Conc. 32.9 g/dL (32.0-36.0); Mean Corpuscular Volume 90.8 fL (80.0-100.0); Monocytes # (auto) 0.8 10 ^3/uL (0-1.3); Monocytes % (auto) 9.6 % (0.0-12.0); Neutrophils # (auto) 6.2 10 ^3/uL (1.6-8.6); Neutrophils % (auto) 74.3 % (37.0-80.0); Nucleated Red Blood Cells % 0.1 %; Platelet Count (auto) 324 10^3/uL (140-450); Red Blood Cells 4.73 10^6/uL (4.5-5.90); Red Cell Distribution Width 15.6 % (11.8-14.3); White Blood Cell 8.3 10^3/uL (4.4-10.8)
--- NOTE | 2020-09-21 09:53 | NUR ---
Patient in bed, drowsy but easily arousable. Patient in no signs of distress. Idioventricular rate, with BP 100/42, HR 96, SPO2 100%. 0/10 pain.
[2020-09-21 09:55] LABS: Albumin 2.7 g/dL (3.4-5.0); Calcium 9.4 mg/dL (8.5-10.1); Magnesium 2.4 mg/dL (1.6-2.6); Potassium 3.5 mmol/L (3.5-5.1)
[2020-09-21 09:58] LABS: BUN/Creatinine Ratio 27.9; Bilirubin, Total 0.3 mg/dL (0.2-1.0); Phosphorus 2.5 mg/dL (2.5-4.90); Total Protein 6.6 g/dL (6.4-8.2)
[2020-09-21] MEDS: SACUBITRIL-VALSARTAN 24mg/26mg TAB PO SCH ×2 (10:00→22:58)
[2020-09-21] MEDS: PANTOPRAZOLE 40 MG/10 ML VIAL INJ IV SCH (10:02)
[2020-09-21] MEDS: DOXYCYCLINE 100 MG TAB/CAP PO SCH ×2 (10:03→22:58)
[2020-09-21] MEDS: MULTIPLE VITAMIN TAB PO SCH (10:03)
--- NOTE | 2020-09-21 10:08 | NUR ---
Patient repositioned and oral care.
--- NOTE | 2020-09-21 10:10 | NUR ---
Patient up to chair. On high flow, no signs of distress. 40L with 80% FIO2 %.
--- NOTE | 2020-09-21 10:40 | NUR ---
RN spoke with Veronica Eddy NP, in response to page. Updated her on patient idioventricular rate and possible afib also. New order for EKG. She will be buy bedside later today.
[2020-09-21] MEDS: NOREPINEPHRINE 8 MG/250ML KIT 250 ML IV SCH (12:30)
--- NOTE | 2020-09-21 15:52 | NUR ---
RN bedside for full hygiene. Patient teaching regarding necessary nutrition and exercises to build muscle. Patient eager and receptive to learning.
--- NOTE | 2020-09-21 16:06 | NUR ---
Report to Orin SALOMON.
--- NOTE | 2020-09-21 16:07 | NUR ---
Patient on Floor Telemetry admit from [facility] transferred to Telemetry unit after report received. Patient oriented to FRANCISCO MONTENEGRO RN primary RN, unit, room, bed, and unit policies regarding patient care and visiting hours. Patient now on continuous telemetry monitoring, tele box #39. Patient placed on bedside oxygen, weighed by bedscale and encouraged to call if they need something. All questions and concerns addressed, patient verbalized understanding.
[2020-09-21] MEDS: RIVAROXABAN 15 MG TAB PO SCH (18:16)
--- NOTE | 2020-09-21 19:05 | NUR ---
Closing Shift Note Patient resting in bed. No distress noted. Report given. Will endorse care to the insurance collector RN.
--- NOTE | 2020-09-21 19:19 | NUR ---
WOUND CARE NOTE: ORDERED SPECIALTY AIR MATTRESS AT THIS TIME. PATIENT TO BE PLACED, PENDING DELIVERY BY YAMILETH MORALES
--- NOTE | 2020-09-21 19:44 | NUR ---
open note assumed care of pt upon entering room pt awake and alert on 3L nc no distress noted or expressed. pt oriented to this nurse and updated on plan of care. pt denies any pain at this time. pt bed locked, low and 2x rails up. call light in reach, bed locked, low and 2x rails up. pt encouraged to call as needed. this nurse to round q1hr and prn.
--- NOTE | 2020-09-21 21:10 | NUR ---
pt minimum assist to wheelchair then restroom. where he voided and had small bm. then back to bed. pt tolerated well.
[2020-09-21] MEDS: MIRTAZAPINE 7.5 MG PO SCH (22:00)
[2020-09-21] MEDS: PRAVASTATIN SODIUM 20 MG TAB PO SCH (22:57)
[2020-09-21] MEDS: ATORVASTATIN 20 MG TAB PO SCH (22:57)
[2020-09-21] MEDS: LORazepam 0.5 MG TAB PO PRN (23:21)
[2020-09-22] MEDS: IPRATROPIUM BROM 0.5 MG/2.5ML INH SOL NEB PRN (07:20)
[2020-09-22] MEDS: ALBUTEROL SULF 2.5 MG/0.5ML(0.5%) NEB SOLN NEB PRN (07:20)
[2020-09-22] MEDS: BUDESONIDE (INHALATION) 0.5 MG/2 ML NEB NEB SCH (07:20)
--- NOTE | 2020-09-22 07:40 | NUR ---
Opening Shift Note Assumed care of patient, awake and alert. No S/S of distress/SOB or pain. Patient is extremely emaciated and presents with multiple scabs on both legs and bruising on arms. Optifoams are placed on bony prominences throughout his body but there are no open wounds at this time. Patient sat up for breakfast. Instructed on POC and to call for assist PRN. Bed is in lowest position and the call light is within reach of the patient. Will continue to monitor for changes Q1hr and PRN.
[2020-09-22 08:34] VITALS: BP 97/52
[2020-09-22] MEDS: cefTRIAXone 1GM/50ML D5W 50 ML IV SCH (09:00)
[2020-09-22] MEDS: DOXYCYCLINE 100 MG TAB/CAP PO SCH (09:24)
[2020-09-22] MEDS: MULTIPLE VITAMIN TAB PO SCH (09:24)
[2020-09-22] MEDS: PANTOPRAZOLE 40 MG/10 ML VIAL INJ IV SCH (09:25)
[2020-09-22] MEDS: SACUBITRIL-VALSARTAN 24mg/26mg TAB PO SCH (09:25)
--- NOTE | 2020-09-22 09:30 | NUR ---
Dr. Lombardi at bedside Dr. Lombardi at beside discussing the POC with the patient. Patient will be discharged today to his facility. Patient verbalized understanding. Orders were given and carried out accordingly.
--- NOTE | 2020-09-22 09:30 | NUR ---
Med D/C Rocephin attempted to be given through the right AC. After 10 minutes patient called complaining of pain at the IV site. Infusion D/C. Dr. Lombardi made aware.
--- NOTE | 2020-09-22 10:47 | NUR ---
Patient AMA smoking Patient off the floor to go outside to smoke. Patient was educated on the risks involved but declined to stay in his room. AMA paper was signed.
--- NOTE | 2020-09-22 12:03 | NUR ---
Patient returned to floor Patient returned to floor by security. BP117/51, HR47, Temp 98.0, RR 24, O2 92%.
[2020-09-22 12:06] VITALS: BP 112/45
--- NOTE | 2020-09-22 12:34 | NUR ---
Handoff Report given to Diana Amin.
[2020-09-22 12:39] VITALS: BP 117/51
--- NOTE | 2020-09-22 15:49 | NUR ---
D/C Planning Per social service consult for patient to return home to [facility] with [facility]. Per Wendy with [facility] they are unable to accept patient due to hospices days. Patient will return to [facility] Address: [id number] [place] [id number] . Informed bedside nurse Susan will transport patient home.
--- NOTE | 2020-09-22 15:50 | NUR ---
IV and Tele Box D/C'ed Catheter removed fully intact. Site is asymptomatic. Tele box sent back to ICU Staff made aware.
--- NOTE | 2020-09-22 16:10 | NUR ---
D/C Pt d/c'ed off unit via own wheelchair. Pt is a/ox4 with no s/s of distress. IV and tele box removed. Pt took all belongings. Education material and follow up appointment information.
[2020-09-22 16:29] VITALS: BP 100/68
== END 2020-09-22 16:20 | disposition hospice, home (50) | DRG 291 ==
LOC: EDBD 13:57 → EDUNIT# 13:57 → ER 13:57 → TELE 13:58 → TELE-WESTW 21:17 → TELE 09-18 13:46 → TELE-WESTW 09-18 13:47 → ICU CENTRL 09-19 05:41 → DOU IN ICU 09-19 05:43 → TELE-CENTR 09-21 16:05
PROVIDERS: ADMIT Family Medicine; ATTEND Family Medicine
DX: I11.0 Hypertensive heart disease with heart failure (principal); J96.20 Acute and chronic respiratory failure, unspecified whether with hypoxia or hypercapnia; J18.9 Pneumonia, unspecified organism; J44.1 Chronic obstructive pulmonary disease with (acute) exacerbation; E44.1 Mild protein-calorie malnutrition; Z68.1 Body mass index [BMI] 19.9 or less, adult; J44.0 Chronic obstructive pulmonary disease with (acute) lower respiratory infection; I50.23 Acute on chronic systolic (congestive) heart failure; J20.9 Acute bronchitis, unspecified; D63.8 Anemia in other chronic diseases classified elsewhere; E03.9 Hypothyroidism, unspecified; E78.5 Hyperlipidemia, unspecified; F32.9 Major depressive disorder, single episode, unspecified; I48.91 Unspecified atrial fibrillation; I70.201 Unspecified atherosclerosis of native arteries of extremities, right leg; I95.9 Hypotension, unspecified; E78.00 Pure hypercholesterolemia, unspecified; F41.9 Anxiety disorder, unspecified; Z20.828 Contact with and (suspected) exposure to other viral communicable diseases; Z79.01 Long term (current) use of anticoagulants; Z99.81 Dependence on supplemental oxygen; Z71.6 Tobacco abuse counseling
CPT/HCPCS: 36415; 71045; 80053; 81001; 82962; 83605; 83735; 83880; 84100; 84443; 84484; 85025; 87040; 87081; 93005; 93925; 94640; 96374; C9113; G0378; J0696

== ENCOUNTER 2020-10-02 11:12 | Inpatient (IN) | payer BC ==
[~2020-10-02] VITALS: Ht 177.8 cm; Wt 41.7 kg
[2020-10-02 12:39] LABS: Basophils # (auto) 0 10 ^3/uL (0-0.2); Basophils % (auto) 0.1 % (0.0-2.0); Eosinophils # (auto) 0 10 ^3/uL (0-0.8); Eosinophils % (auto) 0.1 % (0.0-7.0); Hematocrit 35.9 % (41.0-53.0); Hemoglobin 11.7 g/dL (13.5-17.5); Lymphocytes # (auto) 0.5 10 ^3/uL (0.4-5.4); Lymphocytes % (auto) 8.9 % (10.0-50.0); Mean Corpuscular Hemoglobin 30.1 pg (28.0-32.0); Mean Corpuscular Hgb Conc. 32.5 g/dL (32.0-36.0); Mean Corpuscular Volume 92.6 fL (80.0-100.0); Monocytes # (auto) 0.1 10 ^3/uL (0-1.3); Monocytes % (auto) 2.1 % (0.0-12.0); Neutrophils # (auto) 4.9 10 ^3/uL (1.6-8.6); Neutrophils % (auto) 88.8 % (37.0-80.0); Nucleated Red Blood Cells % 0.1 %; Platelet Count (auto) 289 10^3/uL (140-450); Red Blood Cells 3.88 10^6/uL (4.5-5.90); Red Cell Distribution Width 16.2 % (11.8-14.3); White Blood Cell 5.5 10^3/uL (4.4-10.8)
[2020-10-02 13:07] LABS: Anion Gap 3 (5-15); Blood Urea Nitrogen 43 mg/dL (7-18); Calcium 8.8 mg/dL (8.5-10.1); Carbon Dioxide 29 mmol/L (21-32); Chloride 107 mmol/L (98-107); Glucose 101 mg/dL (74-106); Potassium 4.8 mmol/L (3.5-5.1); Sodium 139 mmol/L (136-145)
[2020-10-02 13:14] LABS: Alanine Aminotransferase 22 U/L (16-61); Alkaline Phosphatase 160 U/L (45-117); Aspartate Aminotransferase 24 U/L (15-37); BUN/Creatinine Ratio 45.7; Bilirubin, Total 0.3 mg/dL (0.2-1.0); GFR African American 98 mL/min; GFR Non-African American 81 mL/min; Total Protein 6.5 g/dL (6.4-8.2)
[2020-10-02] MEDS ORDERED: NITROGLYCERIN 0.4 MG SL TAB SL PRN (16:15)
[2020-10-02] MEDS ORDERED: MORPHINE SULF INJ 2 MG/ML SYRINGE 1ML IV PRN (16:15)
[2020-10-02] MEDS: FUROSEMIDE 20 MG/2 ML VIAL IV SCH (16:48)
[2020-10-02] MEDS: RIVAROXABAN 15 MG TAB PO SCH (18:17)
--- NOTE | 2020-10-02 21:00 | NUR ---
Telemetry admit from [facility] admitted to Telemetry unit, SBAR not received. Patient oriented to Naomy dewey RN, unit, room, bed, and unit policies regarding patient care and visiting hours. Patient now on continuous telemetry monitoring, tele box #94 and telemetry reading on arrival to unit is SR in the 80s. Patient placed on bedside oxygen, weighed by bedscale and encouraged to call if they need something. All questions and concerns addressed, patient verbalized understanding. Patient in the lowest possible position with call light within reach. Blanchable redness noted on patients sacrum, Optifoam to be placed and wound care to be consulted for low Branden score.
[2020-10-02 22:00] VITALS: BP 150/90
[2020-10-02] MEDS: MIRTAZAPINE 7.5 MG PO SCH (22:00)
--- NOTE | 2020-10-02 22:00 | NUR ---
Patient has wheelchair at bedside. Patient states that he cannot walk due to a all he had two years ago. Patient stated that he can only move around via wheelchair. Told patient to call if needs to use the bathroom. patient has urinal at bedside.
--- NOTE | 2020-10-02 22:00 | NUR ---
Patient recently DC'd from hospital, MRSA swab obtained.
--- NOTE | 2020-10-02 22:00 | NUR ---
3L O2 NC placed on patient.
[2020-10-02] MEDS: SACUBITRIL-VALSARTAN 24mg/26mg TAB PO SCH (22:13)
[2020-10-02] MEDS: CARVEDILOL 12.5 MG TAB PO SCH (22:13)
[2020-10-02] MEDS: PRAVASTATIN SODIUM 20 MG TAB PO SCH (22:13)
--- NOTE | 2020-10-03 00:07 | NUR ---
Patient refuses pneumonia and flu vaccine at this time. Patient educated on vaccines and knows that if he changes his mind he can request vaccinations upon discharge.
[2020-10-03 05:04] VITALS: BP 112/58
--- NOTE | 2020-10-03 06:50 | NUR ---
Closing note. Patient in the lowest possible position with call light within reach. No complaints of SOB or pain. Patient is comfortable, all vitals within normal limits, will endorse to day shift RN.
[2020-10-03 09:00] VITALS: BP 105/64
[2020-10-03] MEDS: FUROSEMIDE 20 MG/2 ML VIAL IV SCH (09:50)
[2020-10-03] MEDS: PANTOPRAZOLE 40 MG TAB PO SCH (09:50)
[2020-10-03] MEDS: CARVEDILOL 12.5 MG TAB PO SCH ×2 (09:51→21:40)
[2020-10-03] MEDS: SACUBITRIL-VALSARTAN 24mg/26mg TAB PO SCH ×2 (09:51→21:40)
--- NOTE | 2020-10-03 11:10 | NUR ---
WOUND CARE NOTE: IN TO SEE PATIENT AT THIS TIME PER WOUND CARE CONSULT REQUEST. PATIENT ADMITTED TO PENDING SALE TO [facility] WITH DIAGNOSIS OF ACUTE/CHRONIC SYSTOLIC HEART FAILURE. CURRENT RATNA SCORE IS 13. PATIENT IS ABLE TO SELF TURN, HE IS WHEELCHAIR BOUND AT HOME, CURRENTLY BEDBOUND. PATIENT VERY THIN, WEIGHS 41.7 KG. PATIENT HAS VERY PROMINENT BONY PROMINENCES, INCLUDING COCCYX. PATIENT HAS AN AREA TO THE COCCYX THAT IS NON BLANCHABLE, INTACT, RED. REMAINING ERYTHMIC SKIN IS BLANCHABLE RED. NO OTHER SKIN INTEGRITY ISSUES NOTED. WOUND PHOTO TAKEN FOR REFERENCE. RECOMMEND: FREQUENT TURN SCHEDULE Q 2 HOURS, PRN CONDITION PERMITS, WITH PRESSURE REDISTRIBUTION USING PILLOWS/WEDGES, SYNERGY AIR ELITE AIR MATTRESS, BID/PRN APPLICATION WITH MOISTURE BARRIER CREAM, OPTIFOAM GENTLE SACRAL DRESSING TO COVER AND CUSHION; DIETARY CONSULT, SKIN/WOUND CARE PLAN, CONTINUED MONITORING BY WOUND CARE TEAM. Addendum: 10/03/20 at 1602 by Autumn Addison RN Amended: Links added.
[2020-10-03 13:00] VITALS: BP 97/36
[2020-10-03] MEDS: FUROSEMIDE 40 MG/4 ML VIAL IV SCH ×2 (14:00→21:40)
--- NOTE | 2020-10-03 15:24 | NUR ---
Nutrition Assessment/Consult Notes Please refer to link for full assessment notes. Est Energy needs: 5832-5997 kcals (23-25 kcal/kgIBW of 75.5 kg) Est Protein needs: 76-83 gms/day (1.0-1.1 gm/kgIBW of 75.5 kg) Will continue to monitor and reassess prn. Addendum: 10/03/20 at [address] Amended: Links added.
[2020-10-03 16:55] VITALS: BP 92/56
--- NOTE | 2020-10-03 16:56 | NUR ---
approx. 1410. pt up in wheelchair and assisted to toilet. per RN assisting pt, pt did not want assistance, she waited outside the door and pt attempted to transfer himself from toilet to wheelchair, fell on floor from toilet. Physical Therapy called, assisted pt to wheelchair, then to bed. no injuries noted. bed alarm initiated, pt instructed to call for help to get oob. Dr. Caal notified, zinc furnace charger notified. incident report filed.
[2020-10-03] MEDS: RIVAROXABAN 15 MG TAB PO SCH (17:54)
--- NOTE | 2020-10-03 19:00 | NUR ---
Opening Shift Note Assumed care of patient, awake and alert. No S/S of distress/SOB or pain. Instructed on POC and to call for assist PRN, will continue to monitor for changes Q1hr and PRN. Patient currently in bed on O2 sitting comfortably. Will continue to monitor.
--- NOTE | 2020-10-03 19:53 | NUR ---
Patient needed assistance to the bathroom via wheelchair. Patient was helped by another RN who safely got patient to bathroom and back on wheelchair. Patient advised to go back to bed, patient educated on fall precaution and safety. Patient verbalized understanding and refused to go back into bed. Patient sat in wheelchair at bedside to get oxygen as patient stated he needed some oxygen, but refused to get back into bed. Call light given to patient to call if he needs anything, patient stated that he wanted to stay in the wheelchair and wheel around the hallways. Patient educated on the need to stay near bed for safety, patient refused to do so. Patient now sitting outside of door in wheelchair dozing in and out of sleep, patient already told to go back into bed for safety but refused. Will continue to monitor.
[2020-10-03 20:00] VITALS: BP 120/53
--- NOTE | 2020-10-03 20:26 | NUR ---
Patient offline and off unit, patient went to smoke without signing AMA. Patient advised not to go down and to inform me if he needed anything. patient went downstairs without notifying anyone. Security was called and I was informed that patient is down smoking at the moment. Will have patient sign AMA to smoke for future reference. crown and bridge dental lab technician notified for patient being noncompliant and for future reference of being AMA to smoke. Will continue to monitor patient.
--- NOTE | 2020-10-03 20:42 | NUR ---
Patient back on unit, AMA to smoke discussed and signed. Will continue to monitor patient.
--- NOTE | 2020-10-03 21:00 | NUR ---
Patient S/P fall, patient still wearing his slippers from home, patient refuses to change into red socks as provided by hospital. Patient educated on the need to wear the socks. Patient knows to call for help when getting up to go to the bathroom via wheelchair. Bed alarm on.
[2020-10-03] MEDS: MIRTAZAPINE 7.5 MG PO SCH (21:24)
[2020-10-03] MEDS: PRAVASTATIN SODIUM 20 MG TAB PO SCH (21:40)
[2020-10-03 22:00] VITALS: BP 120/53
--- NOTE | 2020-10-04 01:50 | NUR ---
Patients leads were off, went to check in on patient who was sitting in his wheelchair. Per patient he stated that he had just fallen and got himself into his wheelchair. Patient assessed post fall, no injuries noted, supervisors notified. Patient refusing to take off his slippers to put on the red socks per hospital protocol. Patient educated on fall safety and precautions. Patient to be moved to a room with a sitter to be monitored for safety. MD to be notified of fall. Patients vitals are as follows. BP- 87/45 Heart rate- 74 O2 saturation 93% Respirations unlabored at 16/min Patient reports having no pain Will continue to monitor patient.
--- NOTE | 2020-10-04 03:18 | NUR ---
Patient transferred to new room to have a sitter to watch and keep patient safe from falls as patient has not bee following through with calling for help when needed. Patient stating he has not been able to sleep all night. Patient was seen to be asleep several times tonight, but patient denies sleep. Will continue to monitor. Patient in the lowest possible position with bed alarm on and call light within reach. Sitter at bedside. Patient denies any pain at this time.
[2020-10-04] MEDS: FUROSEMIDE 40 MG/4 ML VIAL IV SCH ×3 (05:42→22:28)
[2020-10-04 06:31] LABS: Basophils # (auto) 0 10 ^3/uL (0-0.2); Basophils % (auto) 0.3 % (0.0-2.0); Eosinophils # (auto) 0.1 10 ^3/uL (0-0.8); Hematocrit 36.5 % (41.0-53.0); Hemoglobin 11.8 g/dL (13.5-17.5); Lymphocytes # (auto) 0.8 10 ^3/uL (0.4-5.4); Lymphocytes % (auto) 12.4 % (10.0-50.0); Mean Corpuscular Hemoglobin 29.9 pg (28.0-32.0); Mean Corpuscular Hgb Conc. 32.3 g/dL (32.0-36.0); Mean Corpuscular Volume 92.5 fL (80.0-100.0); Monocytes # (auto) 0.5 10 ^3/uL (0-1.3); Monocytes % (auto) 7.6 % (0.0-12.0); Neutrophils # (auto) 5.4 10 ^3/uL (1.6-8.6); Neutrophils % (auto) 78.7 % (37.0-80.0); Nucleated Red Blood Cells % 0.1 %; Platelet Count (auto) 260 10^3/uL (140-450); Red Blood Cells 3.95 10^6/uL (4.5-5.90); Red Cell Distribution Width 16.2 % (11.8-14.3); White Blood Cell 6.8 10^3/uL (4.4-10.8)
[2020-10-04 06:59] LABS: Albumin 2.4 g/dL (3.4-5.0); Magnesium 2.4 mg/dL (1.6-2.6); Potassium 3.9 mmol/L (3.5-5.1)
[2020-10-04 07:03] LABS: BUN/Creatinine Ratio 40.2; Bilirubin, Total 0.3 mg/dL (0.2-1.0); Total Protein 5.3 g/dL (6.4-8.2)
[2020-10-04 08:47] VITALS: BP 96/67
[2020-10-04] MEDS: SACUBITRIL-VALSARTAN 24mg/26mg TAB PO SCH ×2 (10:00→22:00)
[2020-10-04] MEDS: PANTOPRAZOLE 40 MG TAB PO SCH (10:00)
[2020-10-04] MEDS: CARVEDILOL 12.5 MG TAB PO SCH ×2 (10:00→22:00)
--- NOTE | 2020-10-04 10:04 | NUR ---
patient stating he is going home. encouraged pt to wait for dr to discharge him. presently resting in bed, sitter at bedside. specialty bed delivered for pt, pt refusing transfer to bed. states he is going home. continuing to monitor closely.
[2020-10-04 13:00] VITALS: BP 123/54
--- NOTE | 2020-10-04 16:03 | NUR ---
DR TAYLOR ROUNDED, CODE STATUS DISCUSSED WITH PT. PT VERBALIZED UNDERSTANDING, DNR FORM SIGNED. 1:1 SITTER REMAINS AT BEDSIDE. CONTINUING TO MONITOR.
[2020-10-04 17:00] VITALS: BP 105/56
[2020-10-04] MEDS ORDERED: ACETAMINOPHEN 325 MG TAB PO PRN (17:00)
[2020-10-04] MEDS: RIVAROXABAN 15 MG TAB PO SCH (17:03)
--- NOTE | 2020-10-04 19:05 | NUR ---
Opening Shift Note Assumed care of patient, awake and alert, forgetful. No S/S of distress/SOB or pain. Sitter at bedside. Bed alarm on, bed in low locked position, siderails up x2, Instructed on POC and to call for assist PRN, will continue to monitor for changes Q1hr and PRN. Patient currently in bed on O2 sitting comfortably. Will continue to monitor.
[2020-10-04 22:00] VITALS: BP 107/46
[2020-10-04] MEDS: MIRTAZAPINE 7.5 MG PO SCH ×2 (22:00→22:28)
[2020-10-04] MEDS: PRAVASTATIN SODIUM 20 MG TAB PO SCH (22:30)
--- NOTE | 2020-10-04 23:00 | NUR ---
Patient refused to wear hospital gown, became agitated , he wants to wear his own clothes despite of education given. Will continue to educate and monitor patient.
[2020-10-05 05:00] VITALS: BP_SYST 110; BP_DIAS 46; BP_DIAS 56
--- NOTE | 2020-10-05 05:00 | NUR ---
PATIENT HAD ON AND OFF SLEEP. PT HAS TO USE URINAL OFTEN DUE TO LASIX GIVEN. PT CALM RIGHT NOW.
[2020-10-05] MEDS: FUROSEMIDE 40 MG/4 ML VIAL IV SCH ×2 (05:54→14:00)
[2020-10-05 09:00] VITALS: BP 106/64
[2020-10-05] MEDS: CARVEDILOL 12.5 MG TAB PO SCH (10:00)
[2020-10-05] MEDS: PANTOPRAZOLE 40 MG TAB PO SCH (10:00)
[2020-10-05] MEDS: SACUBITRIL-VALSARTAN 24mg/26mg TAB PO SCH (10:00)
--- NOTE | 2020-10-05 10:20 | NUR ---
DR BRANDON RATLIFF, PT AGREES TO DISCHARGE HOME TODAY.
--- NOTE | 2020-10-05 12:25 | NUR ---
assessment Patient is a 85 year old male who is alert and oriented. Patients cognitive abilities are intact. Patients emotional state is stable. Prior to admission patient lived home with his roommate and POA Kyle and functioned with his assistance. Per patient he will return home to his prior living arrangements post discharge and family will transport him home. Patient has a wheelchair for home use. I informed patient of his consult for hospice eval. Per patient he wants [facility] hospice. MD order has been sent to [facility]. Per Gerda she will meet with patient at bedside at 1pm to sign consents. Patient is non-compliant. Patient has been informed about going outside and smoking. Patient has been informed of the risks of still smoking. Patient has refused resources for smoking cessation. Patient does not have any family he wants us to contact. Patient informed me his POA and friend Kyle is his support system. I informed patient he has a right to speak to a social media coordinator regarding all care. I informed patient he has a right to participate in any and all discharge planning. Patient does not have a POA and advanced directive. I have offered patient information on POA and advanced directives. I informed the patient the advantages and benefits of having an Advanced Directive. Patient verbalized understanding and agreed to discharge plan. Addendum: 10/05/20 at 1231 by Ree Jacinto Amended: Links added.
[2020-10-05 13:00] VITALS: BP 104/74
--- NOTE | 2020-10-05 13:24 | NUR ---
re-assessment Patient has signed consents. Patient will be transported home at 3pm by [facility] transport. Patient agreed to discharge plan home on hospice. Makenna SALOMON has been notified. Addendum: 10/05/20 at 1325 by Ree NASH Amended: Links added.
[2020-10-05 14:10] VITALS: BP 105/74
--- NOTE | 2020-10-05 16:52 | NUR ---
PT DISCHARGED HOME WITH HOSPICE, LEAVING FACILITY VIA STRETCHER WITH TRANSPORT MAT. IV AND TELE BOX REMOVED, DISCHARGE PAPERS GIVEN TO PT, ALL PAPERWORK SIGNED. PT DISCHARGED HOME.
== END 2020-10-05 16:45 | disposition hospice, home (50) | DRG 291 ==
LOC: ER 11:12 → TELE 16:15 → TELE-WESTW 20:48
PROVIDERS: ADMIT Nurse Practitioner Acute Care; ATTEND Internal Medicine
DX: I11.0 Hypertensive heart disease with heart failure (principal); E43 Unspecified severe protein-calorie malnutrition; J96.20 Acute and chronic respiratory failure, unspecified whether with hypoxia or hypercapnia; I48.20 Chronic atrial fibrillation, unspecified; Z68.1 Body mass index [BMI] 19.9 or less, adult; I50.23 Acute on chronic systolic (congestive) heart failure; J44.9 Chronic obstructive pulmonary disease, unspecified; Z51.5 Encounter for palliative care; Z66 Do not resuscitate; E03.9 Hypothyroidism, unspecified; D64.9 Anemia, unspecified; E78.5 Hyperlipidemia, unspecified; E07.9 Disorder of thyroid, unspecified; F32.9 Major depressive disorder, single episode, unspecified; F41.9 Anxiety disorder, unspecified; F17.210 Nicotine dependence, cigarettes, uncomplicated; Z79.01 Long term (current) use of anticoagulants; Z79.899 Other long term (current) drug therapy; Z82.49 Family history of ischemic heart disease and other diseases of the circulatory system; Z91.14 Patient's other noncompliance with medication regimen; Z87.01 Personal history of pneumonia (recurrent)
CPT/HCPCS: 36415; 71046; 80053; 82607; 83735; 83880; 84484; 85025; 87081; 93005; G0378

== ENCOUNTER 2020-11-07 15:43 | Inpatient (IN) | payer BC ==
[~2020-11-07] VITALS: Ht 167.6 cm; Wt 49.9 kg
[2020-11-07] MEDS ORDERED: SODIUM CHLORIDE 0.9% 1,000 ML IV ONE (16:15)
[2020-11-07 17:34] LABS: Basophils # (auto) 0 10 ^3/uL (0-0.2); Basophils % (auto) 0.4 % (0.0-2.0); Eosinophils # (auto) 0.1 10 ^3/uL (0-0.8); Eosinophils % (auto) 0.9 % (0.0-7.0); Hematocrit 39.9 % (41.0-53.0); Hemoglobin 12.6 g/dL (13.5-17.5); Lymphocytes # (auto) 1.1 10 ^3/uL (0.4-5.4); Lymphocytes % (auto) 15.9 % (10.0-50.0); Mean Corpuscular Hgb Conc. 31.6 g/dL (32.0-36.0); Mean Corpuscular Volume 95.2 fL (80.0-100.0); Monocytes # (auto) 0.7 10 ^3/uL (0-1.3); Monocytes % (auto) 11.2 % (0.0-12.0); Neutrophils # (auto) 4.8 10 ^3/uL (1.6-8.6); Neutrophils % (auto) 71.6 % (37.0-80.0); Platelet Count (auto) 297 10^3/uL (140-450); Red Blood Cells 4.19 10^6/uL (4.5-5.90); Red Cell Distribution Width 16.1 % (11.8-14.3); White Blood Cell 6.7 10^3/uL (4.4-10.8)
[2020-11-07 17:50] LABS: Chloride 116 mmol/L (98-107); INR 0.97 (0.9-1.15); Partial Thromboplastin Time 29.6 sec (23.0-31.2); Sodium 141 mmol/L (136-145)
[2020-11-07 17:52] LABS: Lactic Acid w/Reflex 2.1 mmol/L (0.4-2.0)
[2020-11-07 18:00] LABS: Alanine Aminotransferase 24 U/L (16-61); Albumin 3.1 g/dL (3.4-5.0); Alkaline Phosphatase 178 U/L (45-117); Anion Gap 5 (5-15); Aspartate Aminotransferase 34 U/L (15-37); BUN/Creatinine Ratio 26.7; Bilirubin, Total 0.4 mg/dL (0.2-1.0); Blood Alcohol < 3.0 mg/dL (0-5); Blood Urea Nitrogen 56 mg/dL (7-18); Calcium 8.7 mg/dL (8.5-10.1); Carbon Dioxide 20 mmol/L (21-32); GFR African American 39 mL/min; GFR Non-African American 32 mL/min; Glucose 62 mg/dL (74-106)
[2020-11-07 18:49] LABS: Potassium 5.8 mmol/L (3.5-5.1)
[2020-11-07] MEDS ORDERED: SODIUM BICARBONATE 8.4 % INJ 50ML VIAL IV ONE (19:00)
[2020-11-07] MEDS ORDERED: InsuLIN REG 1unit/0.01ml Soln (100units/ml) SC ONE (19:00)
[2020-11-07] MEDS ORDERED: DEXTROSE (50%) 50ML SYRG IV ONE (19:00)
[2020-11-07] MEDS ORDERED: CALCIUM GLUC 4.65meq/50ml D5AE 50 ML IV ONE (19:00)
[2020-11-07] MEDS ORDERED: NITROGLYCERIN 0.4 MG SL TAB SL PRN (19:00)
[2020-11-07] MEDS ORDERED: D5W/SOD CHL 0.45% 1,000 ML IV ONE (19:00)
[2020-11-07] MEDS ORDERED: MORPHINE SULF INJ 2 MG/ML SYRINGE 1ML IV PRN (19:00)
[2020-11-07] MEDS ORDERED: SODIUM BICARBONATE 8.4% INJ 50ML SYRINGE ONE (20:47)
[2020-11-07] MEDS ORDERED: CARVEDILOL 12.5 MG TAB PO SCH (22:00)
[2020-11-07 22:27] LABS: Urine Bacteria NONE SEEN /hpf (None Seen); Urine Blood Negative /uL (Negative); Urine Mucus FEW (None Seen); Urine Specific Gravity 1.011 (1.001-1.035); Urine WBC 1 /hpf (0 - 3)
[2020-11-07 22:51] LABS: Alcohol, Urine < 3.0 mg/dL (0-10); Amphetamine Screen, Urine NEGATIVE (NEGATIVE); Barbiturate Scree,Urine NEGATIVE (NEGATIVE); Benzodiazephine Screen, Urine NEGATIVE (NEGATIVE); Cannabinoid Screen, Urine NEGATIVE (NEGATIVE); Cocaine Screen, Urine NEGATIVE (NEGATIVE); Opiate Scree,Urine POSITIVE (NEGATIVE); Phencyclidine Screen, Urine NEGATIVE (NEGATIVE)
[2020-11-08] MEDS ORDERED: NOREPINEPHRINE 8 MG/250ML KIT 250 ML IV SCH
[2020-11-08 06:53] LABS: Basophils # (auto) 0 10 ^3/uL (0-0.2); Basophils % (auto) 0.4 % (0.0-2.0); Eosinophils # (auto) 0 10 ^3/uL (0-0.8); Eosinophils % (auto) 0.9 % (0.0-7.0); Hematocrit 34.7 % (41.0-53.0); Hemoglobin 11.8 g/dL (13.5-17.5); Lymphocytes # (auto) 0.7 10 ^3/uL (0.4-5.4); Lymphocytes % (auto) 15.2 % (10.0-50.0); Mean Corpuscular Hgb Conc. 33.9 g/dL (32.0-36.0); Mean Corpuscular Volume 91.5 fL (80.0-100.0); Monocytes # (auto) 0.6 10 ^3/uL (0-1.3); Monocytes % (auto) 13.9 % (0.0-12.0); Neutrophils # (auto) 3.1 10 ^3/uL (1.6-8.6); Neutrophils % (auto) 69.6 % (37.0-80.0); Nucleated Red Blood Cells % 0.2 %; Platelet Count (auto) 224 10^3/uL (140-450); Red Blood Cells 3.79 10^6/uL (4.5-5.90); Red Cell Distribution Width 15.3 % (11.8-14.3); White Blood Cell 4.5 10^3/uL (4.4-10.8)
[2020-11-08 07:06] LABS: Potassium 5.1 mmol/L (3.5-5.1)
[2020-11-08 07:15] LABS: BUN/Creatinine Ratio 30.6; Calcium 8.8 mg/dL (8.5-10.1)
[2020-11-08 07:29] VITALS: BP 139/48
== END 2020-11-08 17:50 | disposition left against medical advice (07) | DRG 70 ==
LOC: ER 15:43 → TELE 15:44
PROVIDERS: ADMIT Nurse Practitioner Acute Care; ATTEND Internal Medicine
DX: G93.41 Metabolic encephalopathy (principal); I50.43 Acute on chronic combined systolic (congestive) and diastolic (congestive) heart failure; N17.0 Acute kidney failure with tubular necrosis; I13.0 Hypertensive heart and chronic kidney disease with heart failure and stage 1 through stage 4 chronic kidney disease, or unspecified chronic kidney disease; R62.7 Adult failure to thrive; F32.9 Major depressive disorder, single episode, unspecified; E03.9 Hypothyroidism, unspecified; E78.5 Hyperlipidemia, unspecified; E87.5 Hyperkalemia; F41.9 Anxiety disorder, unspecified; Z53.29 Procedure and treatment not carried out because of patient's decision for other reasons; Z20.828 Contact with and (suspected) exposure to other viral communicable diseases; F17.210 Nicotine dependence, cigarettes, uncomplicated; I48.91 Unspecified atrial fibrillation; J44.9 Chronic obstructive pulmonary disease, unspecified; N18.32 Chronic kidney disease, stage 3b; Z79.899 Other long term (current) drug therapy; Z82.49 Family history of ischemic heart disease and other diseases of the circulatory system
CPT/HCPCS: 36415; 70450; 71045; 80048; 80053; 80307; 80320; 81001; 82962; 83605; 84443; 84484; 85025; 85379; 85610; 85730; 87040; 87086; 87426; 96365; 96372; 96375; G0378; J0610; J1815